=== PATIENT | male | born 1990 | race Caucasian/White ===

== ENCOUNTER 2017-08-31 13:00 | Outpatient (RCR) ==
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
--- NOTE | 2017-08-17 11:47 | RS.OPPTDN ---
Subjective Date of Note: 08/17/17 Visit #: 2 Date of Evaluation: 08/14/17 Payer Source: Medicaid Treatment Diagnosis: Left LE pain, knee stiffness, unable to ambulate Current Subjective/complaints:: Patient says he will return to his MD 08/22/17 for stitch removal. Reports he will be having surgery in 3 weeks to repair ACL , PCL, and MCL. He rates his pain 7/10 with pain medication this morning. He reports he is elevating his L leg at home, but not icing due to its discomfort. He indicates he is not able to lift his L LE on his own yet. Wolf admit to having difficulty sleeping, but does take xanax to help him at bedtime, although not routinely. Pain Assessment - Pain Description Pain Location: 7 surrounding the L knee joint - Treatment Modality: Electrical Stim Unattended Parameters/Method Applied: Hivolt 4 small pads crossed over the L knee @ 295 to 315 pk volts x 20 mins elevated prior to therex. Patient Position: Supine - Heat/Cryotherapy Treatment: Cryotherapy (double layered with estim ) Interventions - Exercise/Activities/Manual Therapy Exercises/Activities: Patient receives gentle PROM to the left knee into flexion and extension in supine. Heel cord stretching. Assisted SLR, hip abd with knee extended, AP, QS several sets only ~5-6 reps each. Patient demo increased L knee extension ~5 degrees. Patient and girlfriend instructed in HEP , elevation, ice, and safety with transfers. Explained modalities and estim's benefits. Explained Biodex for PROM next session and possibly finding and using platform walker. Re-applied gauze, JOSE wrap, and extension brace. Total minutes of Exercise: 32 Manual Therapy: NA HOME EXERCISE PROGRAM: AP's, quad sets, standing knee flexion, and standing hip abduction and flexion. - Charges Timed Code Treatment Minutes: 32 Total Treatment Time: 58 Procedures billed for this date of service:: cp, estim (un), ex2 Assessment: Patient presents via power chair transferring independently by pivoting using the R LE to/from plinth. Patient arrives with mod to severe pain along with pain medication. Pain is mostly at the L knee anteriorally with wound to the lateral and posterior aspect with slight draining. He is guarded throughout most exercise, but does duane better (per self and girlfriend) than at eval. Increased extension by ~5 degrees. Flexion appears to be slightly better as well when AA. I did look per request for loftstrand or platform piece to apply to one of our walkers, but unable to locate fastening pieces to AD. Patient Education: Education of diagnosis, Body/Joint mechanics, Home Exercise Program, Home Safety, Education of Plan of Care Patient demonstrates compliance with HEP?: Yes Short Term Goals Goal #1: Pt independent and compliant with HEP. Goal to be met by: 08/24/17 Progress towards Goal:: Progressing Goal #2: Left knee flexion to 75 degrees AROM. Goal to be met by: 08/28/17 Progress towards Goal:: Progressing Goal #3: Left quad strength improved to 4-/5. Goal to be met by: 08/28/17 Silver Designer Goals Goal #1: Pt left knee AROM to 110 degrees. Goal to be met by: 09/13/17 Goal #2: Pt to amb. with AAD with 50% WB on left LE. Goal to be met by: 09/13/17 Goal #3: Left quad strength 4/5. Goal to be met by: 09/13/17 Plan PLAN OF CARE EXPIRES ON:: 09/13/17 ORDER # VISITS AND/OR THROUGH DATE: 09/13/17 PLAN: Patient to continue with modalities and therex to the L knee
--- NOTE | 2017-08-21 16:11 | RS.OPPTDN ---
Subjective Date of Note: 08/21/17 Visit #: 3 Date of Evaluation: 08/14/17 Payer Source: Medicaid Treatment Diagnosis: Left LE pain, knee stiffness, unable to ambulate Current Subjective/complaints:: Patient says he is elevating and performing HEP , but not using cryotherapy due to discomfort level of ice. He rates pain 6/10 avg. Reports he has a new manual w/c, but resorting to "hopping" and placing > WBing that he anticipates at home. He is at home at times by himself and tries to get around as safe as he can. Pain Assessment - Pain Description Pain Location: L knee Pain Description: "tight" at the L knee, L foot swelling - Treatment Modality: Electrical Stim Unattended Parameters/Method Applied: hivolt 4 small pads surrounding the L knee @ 255-365 pk volts x 20 mins after therex Patient Position: Supine Interventions - Exercise/Activities/Manual Therapy Exercises/Activities: Wolf pivots on the R LE to transfer from w/c to bed independently. Patient receives gentle PROM to the left knee into flexion and extension in supine. Heel cord stretching. Assisted knee extension stretch statically with ankle over bolster. Assisted SAQ and static flexion stretch over bolster. Assisted SLR, hip abd with knee extended, AP, QS several sets only ~5-6 reps each. Patient able to demo increased L knee extension and flexion today and duane increased activity. Began Biodex for PROM only to L knee with progressing parameters and static stretches at end ranges. Re-applied gauze, JOSE wrap, and extension brace. Total minutes of Exercise: 35 Manual Therapy: NA HOME EXERCISE PROGRAM: AP's, quad sets, standing knee flexion, and standing hip abduction and flexion. - Objective Findings Observations,measurements,etc.: -13 degrees to 45 degrees avg AAROM - Charges Timed Code Treatment Minutes: 35 Total Treatment Time: 70 Procedures billed for this date of service:: estim (un), ex2 Assessment: Patient able to duane increased ROM to the L knee during Biodex than with mat exercises or clinician PROM. He remains quite guarded throughout most activities on mat table including actively ER the L hip to relieve discomfort and resisting to avoid increased knee flexion. However, he appears more relaxed with Biodex PROM and during ROM over bolster for flex/ext. Patient admits improved pain level and flexibility after estim. Patient Education: Body/Joint mechanics, Home Exercise Program, Home Safety, Education of Plan of Care Patient demonstrates compliance with HEP?: Yes Short Term Goals Goal #1: Pt independent and compliant with HEP. Goal to be met by: 08/24/17 Progress towards Goal:: Progressing Goal #2: Left knee flexion to 75 degrees AROM. Goal to be met by: 08/28/17 Progress towards Goal:: Progressing Comments:: 45 degrees today Goal #3: Left quad strength improved to 4-/5. Goal to be met by: 08/28/17 Manager It Training Goals Goal #1: Pt left knee AROM to 110 degrees. Goal to be met by: 09/13/17 Goal #2: Pt to amb. with AAD with 50% WB on left LE. Goal to be met by: 09/13/17 Goal #3: Left quad strength 4/5. Goal to be met by: 09/13/17 Plan PLAN OF CARE EXPIRES ON:: 09/13/17 ORDER # VISITS AND/OR THROUGH DATE: 09/13/17 PLAN: Patient to attend MD follow up tomorrow to remove sutures. Continue PT and may include OT eval if we obtain script to do so.
--- NOTE | 2017-08-28 13:29 | RS.OPPTDN ---
Subjective Date of Note: 08/25/17 Visit #: 4 Date of Evaluation: 08/14/17 Payer Source: Medicaid Treatment Diagnosis: Left LE pain, knee stiffness, unable to ambulate Current Subjective/complaints:: Wolf says that his MD says if his elbow and knee are not better in 6 weeks (at next follow up), he will have to have surgery on both. He says he is disappointed, but is trying to work on his knee to get it stronger. He says he is beginning to put weight onto the L LE through use of his crutches. He says he keeps his JOSE wrap on all day until bedtime. His girlfriend and grandpa helps him with ADLs at home and with HeP. *Precautions: New orders of agressive ROM - Treatment Modality: Electrical Stim Unattended Parameters/Method Applied: Faroese 2 large pads @ L quads x 15 mins 5 sec on/5 off with patient trying to actively contract during on phase. Hivolt 2 large pads medial/lateral L knee @ 235 pk volts Patient Position: Supine Interventions - Exercise/Activities/Manual Therapy Exercises/Activities: Wolf pivots on the R LE to transfer from w/c to bed independently. Patient receives more aggressive PROM to the left knee into flexion and extension in supine. Heel cord stretching. Assisted knee extension stretch statically with ankle over bolster. Assisted SAQ and static flexion stretch over bolster. Assisted SLR, hip abd with knee extended, AP in elevated position, QS several sets only ~5-6 reps each. Heel slides several reps with rests. Patient continues to demo increased L knee extension and flexion today and duane increased activity. DF with red tband x 10. Standing hip abd, knee flexion x 8-10. Re-applied gauze, JOSE wrap, and extension brace. Began crutch training throughout the dept with vc's for proper sequencing and safety techniques. Total minutes of Exercise: 55 Manual Therapy: NA HOME EXERCISE PROGRAM: AP's, quad sets, standing knee flexion, and standing hip abduction and flexion. - Charges Timed Code Treatment Minutes: 55 Total Treatment Time: 55 Procedures billed for this date of service:: estim (att), ex2, gt Assessment: Gers surgery has been pushed back to approximately 6 more weeks depending on how his knee progresses. He is to receive more aggressive ROM and build strength to the L LE. Patient is able to duane 58 degrees of flexion AAROM today in supine and -9/10 degrees of extension. Patient able to amb short distances with crutches with initial prompting for sequencing. He does this steadily, but slowly placing WBAT. Patient encouraged to place more weight onto the L LE per MD advice. Good contraction with Faroese stim to the L quads today. Decreased swelling noted which should allow improved quad contraction with exercises and increased ROM. Patient Education: Education of diagnosis, Body/Joint mechanics, Home Safety Patient demonstrates compliance with HEP?: Yes Short Term Goals Goal #1: Pt independent and compliant with HEP. Goal to be met by: 08/24/17 Progress towards Goal:: Progressing Goal #2: Left knee flexion to 75 degrees AROM. Goal to be met by: 08/28/17 Progress towards Goal:: Progressing Goal #3: Left quad strength improved to 4-/5. Goal to be met by: 08/28/17 Pin Machine Operator Goals Goal #1: Pt left knee AROM to 110 degrees. Goal to be met by: 09/13/17 Goal #2: Pt to amb. with AAD with 50% WB on left LE. Goal to be met by: 09/13/17 Goal #3: Left quad strength 4/5. Goal to be met by: 09/13/17 Plan PLAN OF CARE EXPIRES ON:: 09/13/17 ORDER # VISITS AND/OR THROUGH DATE: 09/13/17 PLAN: Continue BIW x 2 more weeks per approval to gain ROM to the L knee and strength
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
--- NOTE | 2017-08-28 16:13 | RS.OPPTDN ---
Subjective Date of Note: 08/28/17 Visit #: 5 Date of Evaluation: 08/14/17 Payer Source: Medicaid Treatment Diagnosis: Left LE pain, knee stiffness, unable to ambulate Current Subjective/complaints:: Patient says he has been performing HEP and feels that he is able to see improvement in his L knee motion. He says he has been trying to put ~50% WB on the L knee with crutches. Reports getting into/ out shower and car alright. *Precautions: New orders of agressive ROM - Treatment Modality: Electrical Stim Attended Parameters/Method Applied: Guyanese @ 16pk volts 15 mins 5 sec on/5 off to the L Quads. 2 large pads medial/lateral knee hivolt @ 300 pk volts Patient Position: Supine Interventions - Exercise/Activities/Manual Therapy Exercises/Activities: Wolf pivots on the R LE to transfer from w/c to bed independently. Patient receives more aggressive PROM to the left knee into flexion with the knee positioned at 90degrees and extension in supine. Heel cord stretching. Heel slides, Assisted SLR, hip abd multiple reps. Assisted knee extension stretch statically with ankle over bolster. Assisted SAQ with quad stimuli. AP in elevated position, QS several sets only ~5-6 reps each. Heel slides several reps with rests. Ham sets 3x5 reps. Patient continues to demo increased L knee extension and flexion today and duane increased activity. DF with red tband x 10. Sitting: contract/relax for knee flex/ext, assisted LAQ, hip flexion actively all 3x5. Standing hip abd, knee flexion x 8-10. Re- applied gauze, JOSE wrap, and extension brace. Continued with crutch training and WBing. Total minutes of Exercise: 38 Manual Therapy: NA HOME EXERCISE PROGRAM: AP's, quad sets, standing knee flexion, and standing hip abduction and flexion. - Charges Timed Code Treatment Minutes: 53 Total Treatment Time: 60 Procedures billed for this date of service:: estim (att), ex3 Assessment: Patient has demo increased L knee flexion today with exercise. Prior to therex, knee measured 58 degrees in supine with hip at 90 to 69 degrees after therex. In sitting, knee was able to flex to 76 degrees. Patient showing significant improvement with mobility and duane to increasing exercise. Patient Education: Home Exercise Program, Home Safety Patient demonstrates compliance with HEP?: Yes Short Term Goals Goal #1: Pt independent and compliant with HEP. Goal to be met by: 08/24/17 Progress towards Goal:: Progressing Goal #2: Left knee flexion to 75 degrees AROM. Goal to be met by: 08/28/17 Progress towards Goal:: Progressing Goal #3: Left quad strength improved to 4-/5. Goal to be met by: 08/28/17 Product Safety Officer Goals Goal #1: Pt left knee AROM to 110 degrees. Goal to be met by: 09/13/17 Goal #2: Pt to amb. with AAD with 50% WB on left LE. Goal to be met by: 09/13/17 Goal #3: Left quad strength 4/5. Goal to be met by: 09/13/17 Plan PLAN OF CARE EXPIRES ON:: 09/13/17 ORDER # VISITS AND/OR THROUGH DATE: 09/13/17 PLAN: Patient to continue. He began OT today. Continue to work on L knee mobility and strength.
--- NOTE | 2017-08-31 15:19 | RS.OPPTDN ---
Subjective Date of Note: 08/31/17 Visit #: 6 Date of Evaluation: 08/14/17 Payer Source: Medicaid Treatment Diagnosis: Left LE pain, knee stiffness, unable to ambulate Current Subjective/complaints:: Patient says he has been using a RW at home to amb with because he feels safer than with crutches. He says it is really hard for him to figure out what 50% WBing is. He says it is difficult to get his knee straight to place his foot onto the floor. States he is having continued swelling to the knee and asks why his knee is mishaped. *Precautions: New orders of agressive ROM, 50% WBing on the L LE. - Treatment Modality: Electrical Stim Attended Parameters/Method Applied: Mozambican @ 11 pk volts to the L quads 2 large pads. Hivolt 2 large pads medial/lateral knee @ 265 pk volts x 15 mins prior to therex Patient Position: Supine - Heat/Cryotherapy Treatment: Cryotherapy (to L knee following therex x 12 mins supine) Interventions - Exercise/Activities/Manual Therapy Exercises/Activities: Wolf pivots on the R LE to transfer from w/c to bed independently. Receives modalities. Patient receives more aggressive PROM to the left knee into flexion with the knee positioned at 90degrees and extension in supine. Heel cord stretching. Assisted heel slides, Assisted SLR, hip abd multiple reps with assistance. Assisted knee extension stretch statically with ankle over bolster. Assisted SAQ with quad stimuli. AP in elevated position, QS several sets only ~5-6 reps each. Heel slides several reps with rests. Ham sets 3x5 reps. Patient continues to demo increased L knee extension and flexion today and duane increased activity. DF with red tband x 10. Sitting: contract/relax for knee flex/ext, assisted LAQ, hip flexion actively all 3x5. Passive stretching for flexion and extension at side of bed. Began stationary bike for pedal rocks and self stretching x 8 mins slow and with often stopping during conversation. WBing and weight shifting L to R multiple times standing at SW. Amb ~ 10 steps to bike with prompts to place 25-50% WBing. Instructed/ prompted for 50% WBing around the dept ~20' with brace on and with crutches. Patient stands for hip abd, ext, x 8. Re-applied JOSE wrap, and extension brace. Continued with crutch training and WBing. Total minutes of Exercise: 60 Manual Therapy: NA HOME EXERCISE PROGRAM: AP's, quad sets, standing knee flexion, and standing hip abduction and flexion. - Charges Timed Code Treatment Minutes: 60 Total Treatment Time: 60 Procedures billed for this date of service:: ex3, estim (att) Assessment: Patient demo very little quad contraction actively, but achievable with azerbaijani stim. He continues to nervous about placing weight onto the L LE and is unable to sense the amount of weight he is placing on it in reference to 50% goal. He is using 2 crutches and also alternating with amb using RW. He is steady with RW at home and his girlfriend helps him consistently with HEP while also trying to control swelling. He does demo 0.5-.75 cm improvement with swelling at the superior patella and malleoli. Swelling at the inferior knee remains the same. Knee flexion has improved to 61 degrees and ext to -11, then to -6 with aggressive stretching, but also is a bony endfeel. I feel patient was able to allow for more flexion during stationary bike due to patient being more in control. Patient Education: Education of diagnosis, Home Exercise Program, Home Safety, Education of Plan of Care Patient demonstrates compliance with HEP?: Yes Short Term Goals Goal #1: Pt independent and compliant with HEP. Goal to be met by: 08/24/17 Progress towards Goal:: Progressing Goal #2: Left knee flexion to 75 degrees AROM. Goal to be met by: 08/28/17 Progress towards Goal:: Progressing Comments:: 61 degrees today in sitting Goal #3: Left quad strength improved to 4-/5. Goal to be met by: 08/28/17 Pediatric Dermatologist Goals Goal #1: Pt left knee AROM to 110 degrees. Goal to be met by: 09/13/17 Goal #2: Pt to amb. with AAD with 50% WB on left LE. Goal to be met by: 09/13/17 Goal #3: Left quad strength 4/5. Goal to be met by: 09/13/17 Plan PLAN OF CARE EXPIRES ON:: 09/13/17 ORDER # VISITS AND/OR THROUGH DATE: 09/13/17 PLAN: Patient to continue BIW along with OT to build quad strength, improve ROM.
== END 2017-09-02 23:59 ==
PROVIDERS: ATTEND Orthopaedic Surgery Sports Medicine
DX: S83.105D Unspecified dislocation of left knee, subsequent encounter (principal); S83.005D Unspecified dislocation of left patella, subsequent encounter; S83.512D Sprain of anterior cruciate ligament of left knee, subsequent encounter; S83.412D Sprain of medial collateral ligament of left knee, subsequent encounter; S83.422D Sprain of lateral collateral ligament of left knee, subsequent encounter; M25.562 Pain in left knee; M25.462 Effusion, left knee; M25.662 Stiffness of left knee, not elsewhere classified; R26.9 Unspecified abnormalities of gait and mobility

== ENCOUNTER 2017-09-26 10:00 | Outpatient (RCR) ==
--- NOTE | 2017-09-04 15:51 | RS.OTDNOTE ---
Subjective Date of Note: 09/04/17 Visit #: 2 Date of Evaluation: 08/28/17 Payer Source: Medicaid Treatment Diagnosis: Right elbow fracture *Precautions: New orders of agressive ROM, 50% WBing on the L LE. Current Complaints/Gains: Pain in the olecranon process of RUE and complains of limited movement. Pain Assessment - Pain Description Pain Location: Right Elbow Pain Description: aches Current Pain Intensity: 0 Worst Pain Intensity: 8 Other comments regarding pain:: Pt reports he does not have pain at rest with the RUE elbow. He has pain with movement of the RUE elbow. Modalities - Treatment Modality: Ultrasound Parameters/Method Applied: .4 w/cm 2 to Right elbow for 8 minutes Treatment Area: RUE tricep and elbow crease/ bicep Patient Position: Sitting - Hot Pack/Cryotherapy Treatment: Hot Pack, Cryotherapy Comments:: Hot pack at the beginning of therapy and then cold pack at end of treatment. Interventions - Exercise/Activities Exercise/Activities/Manual Therapy: Progressing stretching of the elbow into flexion holding 1 min and 30 sec x 5 reps with 8 lbs. stretching of the RUE elbow into extension. Pt then pulling on the green theraband to increase his RUE elbow flexion. Pt controls the flexion and the extension with therapist holding the green band. Pt increased his AROM to 99 degrees of RUE elbow flexion and -37 deg. of right elbow extension. Shucking motion of two bones of the forearm, joint mobs, to RUE radius and ulna. Pt increased supination to approximately 65 degrees. Pronation is increased to 15 degrees. HOME EXERCISE PROGRAM: Progressing stretching of the RUE Elbow. - Objective Findings Objective Findings:: Pt has limited pronation of RUE. - Charges Timed Code Treatment Minutes: 75 Total Treatment Time: 75 Procedures billed for this date of service:: CP, HP, US, MT, EX x 2 Assessment Assessment: Pt is able to touch his nose with his RUE thumb. Pt is able to flex his elbow to 99 deg. and extend his RUE Elbow to -37 deg. Pt increased his supination to 65-70 deg. Patient Education: Education of diagnosis, Home Exercise Program, Home Safety, Education of Plan of Care Problems/Comments: OT educating patient to complete exercises of sup/pronation motion, elbow flexion is improving and elbow extension is improving. Pt has increased pain with the motion. Patient demonstrates compliance with HEP?: Yes Short Term Goals Goal #1: Pt to increase his RUE elbow ext. to -15 deg. Goal to be met by: 09/11/17 Progress towards goal: Progressing Goal #2: Pt to increase his RUE cork mixer to 40# Goal to be met by: 09/11/17 Progress towards goal: Progressing Goal #3: Pt to increase RUE wrist ext. to 55 deg. to increase wt. brg on RUE arm. Goal to be met by: 09/11/17 Progress towards goal: Progressing Goal #4: Pt to increase RUE elbow flexion to 130 deg to increase combing his hair. Goal to be met by: 09/11/17 Progress towards goal: Progressing Senior Living Goals Goal #1: Pt to increase his RUE elbow ext. to -5 deg. Goal to be met by: 10/16/17 Progress towards goal: Progressing Goal #2: Pt to increase his RUE cork mixer to 40# Goal to be met by: 10/16/17 Progress towards goal: Progressing Goal #3: Pt to increase RUE wrist ext. to 65 deg. to increase wt. brg on RUE arm. Goal to be met by: 10/16/17 Progress towards goal: Progressing Goal #4: Pt to increase RUE elbow flexion to 145 deg to increase combing his hair. Goal to be met by: 09/15/17 Progress towards goal: Progressing Plan PLAN OF CARE EXPIRES ON:: 10/16/17 ORDER # VISITS AND/OR THROUGH DATE: 12 PLAN: To increase RUE elbow, and wrist to full AROM and then strengthen to increase functional use of RUE to return patient to PLOF. Comments: Pt is very motivated and making progress nicely.
--- NOTE | 2017-09-04 16:25 | RS.OPPTDN ---
Subjective Date of Note: 09/04/17 Visit #: 7 Date of Evaluation: 08/14/17 Payer Source: Medicaid Treatment Diagnosis: Left LE pain, knee stiffness, unable to ambulate Current Subjective/complaints:: Patient says he has been walking with crutches and has been steady and amb quicker. He says he is working to place more weight onto the L LE. Says he has increased his neurontin and seems to be having less pain today and improved ease with amb. C/o increased swelling into the L foot, but he has been spending more time on his feet and amb. He says that he has been performing HEP for the R arm also to assist him with crutches. *Precautions: New orders of agressive ROM, 50% WBing on the L LE. - Treatment Modality: Electrical Stim Unattended Parameters/Method Applied: hivolt cross current over the L knee joint and quads @ 120 pk volts x 20 mins prior to therex. Patient Position: Supine - Heat/Cryotherapy Treatment: Cryotherapy Interventions - Exercise/Activities/Manual Therapy Exercises/Activities: Wolf transfers to mat table using crutches. Receives modalities. Patient receives more aggressive PROM to the left knee into flexion with hip flexed at 90 degrees and with heel slide overpressures. Multiple reps of QS, AP. Heel cord stretching. Assisted heel slides, Assisted SLR, hip abd multiple reps. Assisted knee extension stretch statically with ankle over bolster. Assisted SAQ with quad stimuli. AP in elevated position. Prone: knee extension stretching, passive knee flexion, active knee flexion, contract/relax. R sidelying hip abd actively x 8. Ball squeezes in sitting x 10. Balance Fisher Line for weight shifting assessment. Patient able to apply 30-45% onto the L LE. Weight shifting and WBing onto the L foot during gait with crutches without requiring vc's, but encouragement to place foot onto the floor with gait ~50' in the dept. Re-applied JOSE wrap, and extension brace. Total minutes of Exercise: 43 Manual Therapy: NA HOME EXERCISE PROGRAM: AP's, quad sets, standing knee flexion, and standing hip abduction and flexion. - Charges Timed Code Treatment Minutes: 43 Total Treatment Time: 63 Procedures billed for this date of service:: cp, estim (un), ex3 Assessment: Patient progressing well with presenting amb to dept with crutches with increased WBing on the L LE. Improved confidence with WBing and increased knee extension especially in prone. Patient demo increased quad contraction. Patient Education: Body/Joint mechanics, Home Exercise Program Patient demonstrates compliance with HEP?: Yes Short Term Goals Goal #1: Pt independent and compliant with HEP. Goal to be met by: 08/24/17 Progress towards Goal:: Progressing Goal #2: Left knee flexion to 75 degrees AROM. Goal to be met by: 08/28/17 Progress towards Goal:: Progressing Goal #3: Left quad strength improved to 4-/5. Goal to be met by: 08/28/17 Prison Goals Goal #1: Pt left knee AROM to 110 degrees. Goal to be met by: 09/13/17 Goal #2: Pt to amb. with AAD with 50% WB on left LE. Goal to be met by: 09/13/17 Goal #3: Left quad strength 4/5. Goal to be met by: 09/13/17 Plan PLAN OF CARE EXPIRES ON:: 09/13/17 ORDER # VISITS AND/OR THROUGH DATE: 09/13/17 PLAN: BIW for 1 more session. Request continuation and approval for further visits with DPA.
--- NOTE | 2017-09-08 16:27 | RS.OTDNOTE ---
Subjective Date of Note: 09/08/17 Visit #: 3 Date of Evaluation: 08/28/17 Payer Source: Medicaid Treatment Diagnosis: Right elbow fracture *Precautions: New orders of agressive ROM, 50% WBing on the L LE. Current Complaints/Gains: Sharp pain in the RUE elbow. Pt was able to stretch to 38 degrees of elbow extension. Pt has increased pain and soreness of the right elbow. Pt reports the yvan is hurting today. Pain Assessment - Pain Description Pain Description: Tightness, Radiating, Sharp, Throbbing, Aching Pain Location: Right Elbow Pain Description: aches Current Pain Intensity: 2 Worst Pain Intensity: 9 Other comments regarding pain:: Pt's pain increases to 9 when OT pushes and stretches the elbow into extension. Modalities - Treatment Modality: Ultrasound Parameters/Method Applied: .6 w/cm2 for RUE elbow to increase extension of elbow and decrease the scar tissue, pulsed, no heat. Treatment Area: Right elbow. Patient Position: Sitting - Hot Pack/Cryotherapy Treatment: Hot Pack, Cryotherapy Interventions - Exercise/Activities Exercise/Activities/Manual Therapy: Progressing stretching of the elbow into flexion holding 2 minutes x 6 reps with 8 lbs. stretching of the RUE elbow into extension. Pt then pulling on the green theraband to increase his RUE elbow flexion. Pt controls the flexion and the extension with therapist holding the green band. Pt increased his AROM to 99 degrees of RUE elbow flexion and - 38 deg. of right elbow extension. Shucking motion of two bones of the forearm, joint mobs, to RUE radius and ulna. Pt increased supination to approximately 70 degrees. Pronation is 15 degrees. HOME EXERCISE PROGRAM: Progressing stretching of the RUE Elbow. - Objective Findings Objective Findings:: Pt has limited pronation of RUE. Pain in the RUE elbow. - Charges Timed Code Treatment Minutes: 60 Total Treatment Time: 60 Procedures billed for this date of service:: HP, US, EX x 2, CP Assessment Assessment: Pt has increased pain in the RUE elbow. Pt reports the elbow is really hurting today. He reports the bar in his arm is hurting. Pt has a hole in the tissue near the elbow. When OT asked him what was going on, he reported he did not know why that was happening. Patient Education: Home Exercise Program, Education of Plan of Care Problems/Comments: Pt has increased pain. Patient demonstrates compliance with HEP?: Yes Short Term Goals Goal #1: Pt to increase his RUE elbow ext. to -15 deg. Goal to be met by: 09/11/17 Progress towards goal: Progressing Goal #2: Pt to increase his RUE decontamination technician to 40# Goal to be met by: 09/11/17 Progress towards goal: Progressing Goal #3: Pt to increase RUE wrist ext. to 55 deg. to increase wt. brg on RUE arm. Goal to be met by: 09/11/17 Progress towards goal: Progressing Goal #4: Pt to increase RUE elbow flexion to 130 deg to increase combing his hair. Goal to be met by: 09/11/17 Progress towards goal: Progressing Supervisor Edging Goals Goal #1: Pt to increase his RUE elbow ext. to -5 deg. Goal to be met by: 10/16/17 Progress towards goal: Progressing Goal #2: Pt to increase his RUE decontamination technician to 40# Goal to be met by: 10/16/17 Progress towards goal: Progressing Goal #3: Pt to increase RUE wrist ext. to 65 deg. to increase wt. brg on RUE arm. Goal to be met by: 10/16/17 Progress towards goal: Progressing Goal #4: Pt to increase RUE elbow flexion to 145 deg to increase combing his hair. Goal to be met by: 09/15/17 Progress towards goal: Progressing Plan PLAN OF CARE EXPIRES ON:: 10/16/17 ORDER # VISITS AND/OR THROUGH DATE: 12 PLAN: Continue to stretch patient's RUE elbow into extension.
--- NOTE | 2017-09-08 16:27 | RS.OPPTDN ---
Subjective Date of Note: 09/08/17 Visit #: 8 Date of Evaluation: 08/14/17 Payer Source: Medicaid Treatment Diagnosis: Left LE pain, knee stiffness, unable to ambulate Current Subjective/complaints:: Patient says he has been working on HEP often. Reports he was able to drive to PT today without difficulty. ([address] . He says he continues to hernández swelling, but mainly into his L foot. Says he has not taken anything for pain today. Reports soley using crutches now, but placing only TTWB due to insecurity. *Precautions: New orders of agressive ROM, 50% WBing on the L LE. - Treatment Modality: Electrical Stim Unattended Parameters/Method Applied: surrounding the L knee Hivolt 4 large pads crossed @ 125 pk volts x 20 mins with cryotherapy Patient Position: Supine - Heat/Cryotherapy Treatment: Cryotherapy (with estim x 20 mins prior to therex) Interventions - Exercise/Activities/Manual Therapy Exercises/Activities: Wolf transfers to mat table using crutches. Receives modalities. Patient receives continued aggressive PROM to the left knee into flexion with hip flexed at 90 degrees and with heel slide overpressures. Multiple reps of QS (with improved contraction), AP. Heel cord stretching. Assisted heel slides, Assisted SLR, hip abd multiple reps. Assisted knee extension stretch statically with ankle over bolster. Wolf is now able to perform short range SAQ independently. Isometric hip add with ball 2x8. DF red tband with ankle over bolster to stretch into extension 2x10. PF with red tband with knee over bolster 2x10. Isometric ham curl 2x5. AP in elevated position. Prone: knee extension stretching, passive knee flexion, active knee flexion, contract/relax. LAQ limited range, hip flexion at EOB x 10. Measurements taken. Total minutes of Exercise: 45 Manual Therapy: NA HOME EXERCISE PROGRAM: AP's, quad sets, standing knee flexion, and standing hip abduction and flexion. - Objective Findings Observations,measurements,etc.: -6 degrees to 61 degrees flexion (with hip at 90 ). With active QS, patient is able to achieve -4 degrees - Charges Timed Code Treatment Minutes: 45 Total Treatment Time: 65 Procedures billed for this date of service:: cp, estim (un), ex3 Assessment: Improved duane to increasing exercise demo improved ROM and swelling. He is now driving and amb with crutches more consistently. He is not placing as much WBing through the L LE though because of insecurity. He requires prompting in order to do so. Patient Education: Body/Joint mechanics, Home Exercise Program, Education of Plan of Care Patient demonstrates compliance with HEP?: Yes Short Term Goals Goal #1: Pt independent and compliant with HEP. Goal to be met by: 08/24/17 Progress towards Goal:: Progressing Goal #2: Left knee flexion to 75 degrees AROM. Goal to be met by: 08/28/17 Progress towards Goal:: Progressing Comments:: 61 degrees today with hip at 90 Goal #3: Left quad strength improved to 4-/5. 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 Goal to be met by: 09/13/17 Goal #2: Pt to amb. with AAD with 50% WB on left LE. Goal to be met by: 09/13/17 Goal #3: Left quad strength 4/5. Goal to be met by: 09/13/17 Plan PLAN OF CARE EXPIRES ON:: 09/13/17 ORDER # VISITS AND/OR THROUGH DATE: 09/13/17 PLAN: Patient to attend 1 more visit per order. Request further orders from MD and seek approval through Medicaid.
--- NOTE | 2017-09-11 13:28 | RS.OPPTDN ---
Subjective Date of Note: 09/11/17 Visit #: 9 Date of Evaluation: 08/14/17 Payer Source: Medicaid Treatment Diagnosis: Left LE pain, knee stiffness, unable to ambulate Current Subjective/complaints:: Patient says he has been trying to work on flexing his knee, but says it just feels like he is hitting a block. Reports he has been able to straighten his knee better over the weekend and states his swelling is down significantly especially to his foot. Reports increased amb, but still is hesitant to place much weight onto the L LE. Wolf reports using ice to the knee prior to his drive into therapy this morning. *Precautions: New orders of agressive ROM, 50% WBing on the L LE. - Treatment Modality: Electrical Stim Unattended Parameters/Method Applied: Hivolt 4 large pads crossed over the L knee @ 320 pk volts x 15 mins prior to therex Patient Position: Supine - Heat/Cryotherapy Treatment: Cryotherapy (around the L knee with estim) Interventions - Exercise/Activities/Manual Therapy Exercises/Activities: Wolf transfers to mat table pivoting after OT. Receives modalities. Patient receives continued aggressive PROM to the left knee into flexion with hip flexed at 90 degrees and with heel slide overpressures. Multiple reps of QS (with improved contraction), AP. Heel cord stretching. Assisted heel slides, Assisted SLR, hip abd multiple reps. Assisted knee extension stretch statically with ankle over bolster. He continues to be able to perform short range SAQ, but more range than last session independently. Isometric hip add with ball 2x8. DF red tband with ankle over bolster to stretch into extension 2x10. PF with red tband with knee over bolster 2x10. Isometric ham curl 2x5. Ham curl with red tband 2x8. AP in elevated position. SLR (AARoM), hip abd with knee extended 2x8. EOB: stretching, passive knee flexion, active knee flexion, contract/relax. LAQ limited range, hip flexion at EOB x 10. Total minutes of Exercise: 40 Manual Therapy: NA HOME EXERCISE PROGRAM: AP's, quad sets, standing knee flexion, and standing hip abduction and flexion. - Objective Findings Observations,measurements,etc.: Patient demo -4 degrees on average for extension. 61 degrees flexion with hip at 90 and AAROM - Charges Timed Code Treatment Minutes: 40 Total Treatment Time: 55 Procedures billed for this date of service:: cp, estim (un), ex3 Assessment: Patient has completed original order. He will continue to perform HEP consistently. He is driving without difficulty, but needs to be more consistent with increasing WB onto the L LE during ambulation. Quads/HS now 4-/ 5. Patient Education: Home Exercise Program, Education of Plan of Care Patient demonstrates compliance with HEP?: Yes Short Term Goals Goal #1: Pt independent and compliant with HEP. Goal to be met by: 08/24/17 Progress towards Goal:: Met Goal #2: Left knee flexion to 75 degrees AROM. Goal to be met by: 08/28/17 Progress towards Goal:: Progressing Comments:: 61 at LDOS Goal #3: Left quad strength improved to 4-/5. 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 Goal to be met by: 09/13/17 Goal #2: Pt to amb. with AAD with 50% WB on left LE. Goal to be met by: 09/13/17 Goal #3: Left quad strength 4/5. Goal to be met by: 09/13/17 Plan PLAN OF CARE EXPIRES ON:: 09/13/17 ORDER # VISITS AND/OR THROUGH DATE: 09/13/17 PLAN: Patient order complete. Seeking continuation orders until he returns to MD for surgical procedure and seek approval from [facility].
--- NOTE | 2017-09-11 13:39 | RS.OTDNOTE ---
Subjective Date of Note: 09/11/17 Visit #: 4 Date of Evaluation: 08/28/17 Payer Source: Medicaid Treatment Diagnosis: Right elbow fracture *Precautions: New orders of agressive ROM, 50% WBing on the L LE. Current Complaints/Gains: Pt states he feels his elbow isn't going to "break" and wishes he could just go ahead with surgery. Pain Assessment - Pain Description Pain Description: Tightness, Radiating, Sharp, Throbbing, Aching Pain Location: Right Elbow Pain Description: aches Worst Pain Intensity: 6 Modalities - Treatment Modality: Ultrasound Parameters/Method Applied: .05w/cm2 x 10 mins Treatment Area: elbow - Hot Pack/Cryotherapy Treatment: Hot Pack, Cryotherapy Interventions - Exercise/Activities Exercise/Activities/Manual Therapy: Progressive stretching of the elbow into flexion holding 2 minutes x 6 reps with 8 lbs with UE hanging down beside chair. Stretching/PROM of the RUE elbow into extension/flexion. Pt performing green RUE elbow flexion, /. Shucking motion of two bones of the forearm, joint mobs, to RUE radius and ulna. Pt increased supination to approximately 80 degrees. Pronation is 20 degrees. HOME EXERCISE PROGRAM: Progressive stretching of the RUE Elbow. - Charges Timed Code Treatment Minutes: 48 Total Treatment Time: 61 Procedures billed for this date of service:: CP US OK EX Assessment Patient Education: Education of diagnosis, Body/Joint mechanics, Home Exercise Program, Home Safety, Activity Modification, Education of Plan of Care Patient demonstrates compliance with HEP?: Yes Short Term Goals Goal #1: Pt to increase his RUE elbow ext. to -15 deg. 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 to 55 deg. to increase wt. brg on RUE arm. Goal to be met by: 09/11/17 Progress towards goal: Progressing Goal #4: Pt to increase RUE elbow flexion to 130 deg to increase combing his hair. 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 to -5 deg. 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 to 65 deg. to increase wt. brg on RUE arm. Goal to be met by: 10/16/17 Progress towards goal: Progressing Goal #4: Pt to increase RUE elbow flexion to 145 deg to increase combing his hair. Goal to be met by: 09/15/17 Progress towards goal: Progressing Plan PLAN OF CARE EXPIRES ON:: 10/16/17 ORDER # VISITS AND/OR THROUGH DATE: 12 PLAN: Cont current POC
--- NOTE | 2017-09-12 11:11 | RS.PTSUM ---
Progress Note/Summary Date of Note: 09/11/17 Date of Evaluation: 08/14/17 Number of Visits: 9 (including evaluation) Current Complaints/Gains: Wolf continues to work on his HEP. He feels that he is "hitting a block" with trying to gain more knee flexion. Reports increased ambulation, but he continues to be hesitant to put too much weight on the left LE. He is using ice to the knee as needed. Objective Measurements/Presentation: TELLOOM left knee extension -4 degrees to 61 degrees flexion (with the hip flexed at 90 degrees). He is performing a variety of exercises and receiving aggressive PROM to gain increased range. He gets good results with use of HVGS to the left knee prior to exercises in the department. He still has impaired quad control of the left LE. He is ambulating with two crutches and is approximately 20% weight bearing on the left LE. G Codes: NA Source of G Code Score: NA - Short Term Goals Goal #1: Pt independent and compliant with HEP. Goal to be met by: 08/24/17 Progress towards Goal:: Met Goal #2: Left knee flexion to 75 degrees AROM. Goal to be met by: 09/18/17 Progress towards Goal:: Progressing Goal #3: Left quad strength improved to 4-/5. Goal to be met by: 09/18/17 Progress towards Goal:: Progressing - Prison Goals Goal #1: Pt left knee AROM to 110 degrees. Goal to be met by: 10/11/17 Goal #2: Pt to amb. with AAD with 50% WB on left LE. Goal to be met by: 10/11/17 Goal #3: Left quad strength 4/5. Goal to be met by: 10/11/17 - Assessment Assessment of Improvement/Progress: Wolf has made progress with left knee extension and flexion. However, he continues to have marked limitation of flexion. He is now ambulating with crutches and attempting more weight bearing through the left LE. He is very hesitant of weight bearing due to the lack of stability he feels in the left knee joint. His surgery for multiple ligament reconstruction has been postponed and he needs continued therapy to gain further knee flexion and muscle strength prior to that surgery, which is planned to happen in 3-4 weeks. Summary: Patient has made progress towards goals., Patient demonstrates potential to gain increased function with therapy, Maximum potential has yet to be attained. - Plan Plan: Continue Plan of Care Comments: Order received to continue therapy 2 x week for 6 weeks Frequency: 2 X week Duration: 3 weeks PLAN OF CARE EXPIRES ON:: 10/11/17 ORDER # VISITS AND/OR THROUGH DATE: 10/11/17
--- NOTE | 2017-09-14 13:06 | RS.OTCXNS ---
OT Case Note Date of Scheduled Appointment: 09/14/17 Type: Cancel
--- NOTE | 2017-09-15 16:15 | RS.OTDNOTE ---
Subjective Date of Note: 09/15/17 Visit #: 5 Date of Evaluation: 08/28/17 Payer Source: Medicaid Treatment Diagnosis: Right elbow fracture *Precautions: New orders of agressive ROM, 50% WBing on the L LE. Current Complaints/Gains: Sharp pain in the left elbow with extension and flexion. Pt has alot of pain with flexion. Range of motion in Left elbow is -38 to 90 degrees. Pain Assessment - Pain Description Pain Description: Tightness, Radiating, Sharp, Throbbing, Aching Pain Location: Right Elbow Pain Description: aches Current Pain Intensity: 0 Worst Pain Intensity: 10 Other comments regarding pain:: Pt has increased pain with flexion and extension of elbow. At rest it is a 0. Modalities - Hot Pack/Cryotherapy Treatment: Hot Pack (To increase flexibility for stretching.) Interventions - Exercise/Activities Exercise/Activities/Manual Therapy: Progressive stretching of the elbow into flexion holding 2 minutes x 6 reps with 8 lbs with UE hanging down beside chair. Stretching/PROM of the RUE elbow into extension/flexion. Pt performing green RUE elbow flexion, 12/04. Shucking motion of two bones of the forearm, joint mobs, to RUE radius and ulna. Pt increased supination to approximately 80 degrees. Pronation is 20 degrees. HOME EXERCISE PROGRAM: Progressive stretching of the RUE Elbow. - Objective Findings Objective Findings:: Pt has limited pronation of RUE. Pain in the RUE elbow. Measurement for elbow AROM is -38 to 90 degrees. - Charges Timed Code Treatment Minutes: 60 Total Treatment Time: 60 Procedures billed for this date of service:: HP, MT x 2, EX Assessment Assessment: Pt is very difficult to stretch into pronation. Pt reports the Ulna bone was replaced with a bar and a metal plate. Pt has improved on Elbow extension and flexion. Pt has increased pain where he yells with elbow flexion. Problems/Comments: The limited Pronation of the LUE limb. Patient demonstrates compliance with HEP?: Yes Short Term Goals Goal #1: Pt to increase his RUE elbow ext. to -15 deg. 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 to 55 deg. to increase wt. brg on RUE arm. Goal to be met by: 09/11/17 Progress towards goal: Progressing Goal #4: Pt to increase RUE elbow flexion to 130 deg to increase combing his hair. Goal to be met by: 09/11/17 Progress towards goal: Progressing Science Job Titles Goals Goal #1: Pt to increase his RUE elbow ext. to -5 deg. Goal to be met by: 10/16/17 Progress towards goal: Progressing Goal #2: Pt to increase his RUE roll scale worker to 40# Goal to be met by: 10/16/17 Progress towards goal: Progressing Goal #3: Pt to increase RUE wrist ext. to 65 deg. to increase wt. brg on RUE arm. Goal to be met by: 10/16/17 Progress towards goal: Progressing Goal #4: Pt to increase RUE elbow flexion to 145 deg to increase combing his hair. Goal to be met by: 09/15/17 Progress towards goal: Progressing Plan PLAN OF CARE EXPIRES ON:: 10/16/17 ORDER # VISITS AND/OR THROUGH DATE: 12 PLAN: Continue to stretch the patient in elbow flexion and extension. Call for report on patient's RUE surgery.
--- NOTE | 2017-09-18 15:17 | RS.OPPTDN ---
Subjective Date of Note: 09/18/17 Visit #: 10 Date of Evaluation: 08/14/17 Payer Source: Medicaid Treatment Diagnosis: Left LE pain, knee stiffness, unable to ambulate Current Subjective/complaints:: Patient reports trying to increase the weight bearing on the L LE ,but is cautious. *Precautions: New orders of agressive ROM, 50% WBing on the L LE. Pain Assessment - Pain Description Pain Location: L knee Pain Description: Dull, Aching Current Pain Intensity: 0 at rest Worst Pain Intensity: 5-6 while up for longer time periods - Treatment Modality: Electrical Stim Unattended Parameters/Method Applied: 20 mins. to L knee channel 1 above knee @ 150 pv, channel 2 below @ 255 pv. Patient Position: Supine - Heat/Cryotherapy Treatment: Cryotherapy (concurrent with e-stim) Interventions - Exercise/Activities/Manual Therapy Exercises/Activities: N/A today due to time restraint.Patient has good knowledge of safety issues with HEP.Patient did 5 mins. gait training at end of session with improved heel strike. Total minutes of Exercise: 0 Manual Therapy: NA Total minutes of Manual Therapy: 0 HOME EXERCISE PROGRAM: AP's, quad sets, standing knee flexion, and standing hip abduction and flexion. - Charges Timed Code Treatment Minutes: 20 Total Treatment Time: 25 Procedures billed for this date of service:: cp,e-stim Assessment: Patient tolerates modalities well today.He is gradually tolerating increased weight bearing on the L lE.He is cautious ,has good safety awareness, compliant to wearing the Leg brace.No exercises today due to therapy staff time restraint,but understands to do HEP in pain free ROM. Patient Education: Education of diagnosis, Body/Joint mechanics, Home Exercise Program, Home Safety, Activity Modification, Education of Plan of Care Patient demonstrates compliance with HEP?: Yes Short Term Goals Goal #1: Pt independent and compliant with HEP. Goal to be met by: 08/24/17 Progress towards Goal:: Met Goal #2: Left knee flexion to 75 degrees AROM. Goal to be met by: 09/18/17 Progress towards Goal:: Progressing Goal #3: Left quad strength improved to 4-/5. 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 Goal to be met by: 10/11/17 Goal #2: Pt to amb. with AAD with 50% WB on left LE. Goal to be met by: 10/11/17 Progress towards goal: Progressing Goal #3: Left quad strength 4/5. Goal to be met by: 10/11/17 Plan PLAN OF CARE EXPIRES ON:: 10/11/17 ORDER # VISITS AND/OR THROUGH DATE: 10/11/17 PLAN: Continue PT to strengthen the L LE ,resulting in more stability of the L knee joint until reconstructive surgery.
--- NOTE | 2017-09-19 08:51 | RS.OTDNOTE ---
Subjective Date of Note: 09/18/17 Visit #: 6 Date of Evaluation: 08/28/17 Payer Source: Medicaid Treatment Diagnosis: Right elbow fracture *Precautions: New orders of agressive ROM, 50% WBing on the L LE. Current Complaints/Gains: Pt states no change in UE. States he returns to MD on the . States LE is starting to feel better and he wants to try ambulating more. Pain Assessment - Pain Description Pain Description: Tightness, Radiating, Sharp, Throbbing, Aching Pain Location: Right Elbow Pain Description: aches Current Pain Intensity: 3 Worst Pain Intensity: 8 Modalities - Treatment Modality: Ultrasound Parameters/Method Applied: .05w/cm2 x 10 mins Treatment Area: elbow Patient Position: Sitting - Hot Pack/Cryotherapy Treatment: Hot Pack, Cryotherapy Comments:: x 10+mins each Interventions - Exercise/Activities Exercise/Activities/Manual Therapy: Progressive stretching of the elbow into flexion holding 2 minutes x 6 reps with 10# with UE hanging down beside chair. Stretching/PROM of the RUE elbow into extension/flexion. Pt performing green RUE elbow flexion, 10/1. Shucking motion of two bones of the forearm, joint mobs, to RUE radius and ulna. Pt increased supination to approximately 80 degrees. Pronation is 20 degrees. HOME EXERCISE PROGRAM: Progressive stretching of the RUE Elbow. - Objective Findings Objective Findings:: Pt has limited pronation of RUE. Pain in the RUE elbow. Measurement for elbow AROM is -38 to 90 degrees. - Charges Timed Code Treatment Minutes: 48 Total Treatment Time: 71 Procedures billed for this date of service:: [facility] MT2 EX Assessment Patient Education: Education of diagnosis, Body/Joint mechanics, Home Exercise Program, Home Safety, Activity Modification, Education of Plan of Care Patient demonstrates compliance with HEP?: Yes Short Term Goals Goal #1: Pt to increase his RUE elbow ext. to -15 deg. 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 to 55 deg. to increase wt. brg on RUE arm. Goal to be met by: 09/11/17 Progress towards goal: Progressing Goal #4: Pt to increase RUE elbow flexion to 130 deg to increase combing his hair. 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 to -5 deg. Goal to be met by: 10/16/17 Progress towards goal: Progressing Goal #2: Pt to increase his RUE kitchen cleaner to 40# Goal to be met by: 10/16/17 Progress towards goal: Progressing Goal #3: Pt to increase RUE wrist ext. to 65 deg. to increase wt. brg on RUE arm. Goal to be met by: 10/16/17 Progress towards goal: Progressing Goal #4: Pt to increase RUE elbow flexion to 145 deg to increase combing his hair. Goal to be met by: 09/15/17 Progress towards goal: Progressing Plan PLAN OF CARE EXPIRES ON:: 10/16/17 ORDER # VISITS AND/OR THROUGH DATE: 12 PLAN: Cont per POC
--- NOTE | 2017-09-20 10:42 | RS.OTCXNS ---
OT Case Note Date of Scheduled Appointment: 09/20/17 Type: Cancel (Re-scheduled.)
--- NOTE | 2017-09-22 13:23 | RS.OTDNOTE ---
Subjective Date of Note: 09/22/17 Visit #: 7 Date of Evaluation: 08/28/17 Payer Source: Medicaid Treatment Diagnosis: Right elbow fracture *Precautions: New orders of agressive ROM, 50% WBing on the L LE. Current Complaints/Gains: Pt agrees with theapist and believes he was able extend his UE more this date following estim. Pain Assessment - Pain Description Pain Description: Tightness, Radiating, Sharp, Throbbing, Aching Pain Location: Right Elbow Pain Description: aches Modalities - Treatment Modality: Electrical Stim Attended Parameters/Method Applied: To pt tolerance, 2 pads with gentle prolonged stretching performed during Treatment Area: elbow - Hot Pack/Cryotherapy Treatment: Hot Pack, Cryotherapy Comments:: HP during estim application with CP applied x 10+ mins following therapy. Interventions - Exercise/Activities Exercise/Activities/Manual Therapy: Progressive stretching of the elbow into flexion holding 2 minutes x 6 reps with 10# with UE hanging down beside chair. Stretching/PROM of the RUE elbow into extension/flexion. Pt performing green RUE elbow flexion, 12/04. Shucking motion of two bones of the forearm, joint mobs, to RUE radius and ulna. Pro/supination also performed. HOME EXERCISE PROGRAM: Progressive stretching of the RUE Elbow. - Objective Findings Objective Findings:: Pt has limited pronation of RUE. Pain in the RUE elbow. Measurement for elbow AROM is -38 to 90 degrees. - Charges Timed Code Treatment Minutes: 55 Total Treatment Time: 65 Procedures billed for this date of service:: CP MT2 ESTIM Assessment Patient Education: Education of diagnosis, Body/Joint mechanics, Home Exercise Program, Home Safety, Activity Modification, Education of Plan of Care Patient demonstrates compliance with HEP?: Yes Short Term Goals Goal #1: Pt to increase his RUE elbow ext. to -15 deg. 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 to 55 deg. to increase wt. brg on RUE arm. Goal to be met by: 09/11/17 Progress towards goal: Progressing Goal #4: Pt to increase RUE elbow flexion to 130 deg to increase combing his hair. Goal to be met by: 09/11/17 Progress towards goal: Progressing Spray Machine Loader Goals Goal #1: Pt to increase his RUE elbow ext. to -5 deg. 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 to 65 deg. to increase wt. brg on RUE arm. Goal to be met by: 10/16/17 Progress towards goal: Progressing Goal #4: Pt to increase RUE elbow flexion to 145 deg to increase combing his hair. Goal to be met by: 09/15/17 Progress towards goal: Progressing Plan PLAN OF CARE EXPIRES ON:: 10/16/17 ORDER # VISITS AND/OR THROUGH DATE: 12 PLAN: Cont per POC
--- NOTE | 2017-09-25 15:48 | RS.OPPTDN ---
Subjective Date of Note: 09/22/17 Visit #: 11 Date of Evaluation: 08/14/17 Payer Source: Medicaid Treatment Diagnosis: Left LE pain, knee stiffness, unable to ambulate Current Subjective/complaints:: Patient says he is walking more on his L LE. He says his foot and ankle has been swollen as a result. He says that he still has trouble with flexing the knee and continues to say it's "stuck." Reports he returns to the MD 10/03/17. *Precautions: New orders of agressive ROM, 50% WBing on the L LE. - Treatment Modality: Electrical Stim Unattended Parameters/Method Applied: hivolt 4 large pads crossed over the L knee @ 210 pk volts x 15 mins prior to therex Patient Position: Supine - Heat/Cryotherapy Treatment: Cryotherapy (with estim) Interventions - Exercise/Activities/Manual Therapy Exercises/Activities: Patient receives passive stretching for L knee flex/ext, hamstring and heel cords. Patient performs QS, SAQ, SLR. 2x10. At EOB: LAQ, contract/relax techniques several times to improve ROM. Standing: hip abd, flexion, ext with brace on x 15. Forward weight shifting onto the L LE x 10, lateral shifting x 10. Gait training throughout dept now not requiring prompts for increased WBing and standing erect instead of leaning forward onto crutches. Patient uses 2 crutches x 50' supervision with education of possibly progressing to 1 crutch end of next week. Total minutes of Exercise: 35 Manual Therapy: NA HOME EXERCISE PROGRAM: AP's, quad sets, standing knee flexion, and standing hip abduction and flexion. - Charges Timed Code Treatment Minutes: 35 Total Treatment Time: 50 Procedures billed for this date of service:: cp, estim (un), ex2 Assessment: Patient more consistent with WBing onto the L LE and using crutches with more erect posture. Decreased edema to the L foot and ankle. He remains with significant limitation regarding knee flexion. Patient demo hard end feel. Contract/Relax method only slightly effective. Patient to continue to work on gait training using 1-2 crutches and strengthen the L LE as much as possible before returning to MD 10/03/17. Patient Education: Education of diagnosis, Home Exercise Program, Education of Plan of Care Patient demonstrates compliance with HEP?: Yes Short Term Goals Goal #1: Pt independent and compliant with HEP. Goal to be met by: 08/24/17 Progress towards Goal:: Met Goal #2: Left knee flexion to 75 degrees AROM. Goal to be met by: 09/18/17 Progress towards Goal:: Progressing Goal #3: Left quad strength improved to 4-/5. Goal to be met by: 09/18/17 Progress towards Goal:: Progressing Senior Care Goals Goal #1: Pt left knee AROM to 110 degrees. Goal to be met by: 10/11/17 Goal #2: Pt to amb. with AAD with 50% WB on left LE. Goal to be met by: 10/11/17 Progress towards goal: Progressing Goal #3: Left quad strength 4/5. Goal to be met by: 10/11/17 Plan PLAN OF CARE EXPIRES ON:: 10/11/17 ORDER # VISITS AND/OR THROUGH DATE: 10/11/17 PLAN: Patient to continue BIW x 3 more sessions per progress report and until MD follow up on 10/03/17.
--- NOTE | 2017-09-26 14:07 | RS.OTDNOTE ---
Subjective Date of Note: 09/26/17 Visit #: 8 Date of Evaluation: 08/28/17 Payer Source: Medicaid Treatment Diagnosis: Right elbow fracture *Precautions: New orders of agressive ROM, 50% WBing on the L LE. Current Complaints/Gains: pt states no change and voices c/o pain with PROM extension/flexion and pro/supination Pain Assessment - Pain Description Pain Description: Tightness, Radiating, Sharp, Throbbing, Aching Pain Location: Right Elbow Pain Description: aches Modalities - Treatment Modality: Ultrasound Parameters/Method Applied: .05w/cm2 x 7 mins x 2 Treatment Area: anterior/posterior elbow Patient Position: Supine Comments:: UE in prolonged static extension - Hot Pack/Cryotherapy Treatment: Hot Pack Comments:: HP X 10 mins Interventions - Exercise/Activities Exercise/Activities/Manual Therapy: Progressive stretching of the elbow into flexion holding 2 minutes x 6 reps with 10# with UE hanging down beside chair. Stretching/PROM of the RUE elbow into extension/flexion. Pt performing green RUE elbow flexion, 12/04. Shucking motion of two bones of the forearm, joint mobs, to RUE radius and ulna. Pro/supination also performed. HOME EXERCISE PROGRAM: Progressive stretching of the RUE Elbow. - Objective Findings Objective Findings:: Pt has limited pronation of RUE. Pain in the RUE elbow. Measurement for elbow AROM is -38 to 90 degrees. - Charges Timed Code Treatment Minutes: 37 Total Treatment Time: 48 Procedures billed for this date of service:: EX US HP Assessment Patient Education: Education of diagnosis, Body/Joint mechanics, Home Exercise Program, Home Safety, Activity Modification, Education of Plan of Care Patient demonstrates compliance with HEP?: Yes Short Term Goals Goal #1: Pt to increase his RUE elbow ext. to -15 deg. Goal to be met by: 09/11/17 Progress towards goal: Progressing Goal #2: Pt to increase his RUE siphoner to 40# Goal to be met by: 09/11/17 Progress towards goal: Progressing Goal #3: Pt to increase RUE wrist ext. to 55 deg. to increase wt. brg on RUE arm. Goal to be met by: 09/11/17 Progress towards goal: Progressing Goal #4: Pt to increase RUE elbow flexion to 130 deg to increase combing his hair. Goal to be met by: 09/11/17 Progress towards goal: Progressing Configuration Management Manager Goals Goal #1: Pt to increase his RUE elbow ext. to -5 deg. Goal to be met by: 10/16/17 Progress towards goal: Progressing Goal #2: Pt to increase his RUE siphoner to 40# Goal to be met by: 10/16/17 Progress towards goal: Progressing Goal #3: Pt to increase RUE wrist ext. to 65 deg. to increase wt. brg on RUE arm. Goal to be met by: 10/16/17 Progress towards goal: Progressing Goal #4: Pt to increase RUE elbow flexion to 145 deg to increase combing his hair. Goal to be met by: 09/15/17 Progress towards goal: Progressing Plan PLAN OF CARE EXPIRES ON:: 10/16/17 ORDER # VISITS AND/OR THROUGH DATE: 12 PLAN: Pt returns to MD next wk
--- NOTE | 2017-09-26 16:45 | RS.OPPTDN ---
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 He states his MD and PA requests that he video his knee motion and gait so that he can send it to the office and show his progress. He says he is noticing improvement with amb, but also c/o swelling as a result. States he is only taking pain medication prn. *Precautions: New orders of agressive ROM, 50% WBing on the L LE. - Treatment Modality: Electrical Stim Unattended Parameters/Method Applied: hivolt 4 large pads surrounding the L knee @ 115-260 pk volts x 15 mins after therex Patient Position: Supine - Heat/Cryotherapy Treatment: Hot Pack (with estim per request) Interventions - Exercise/Activities/Manual Therapy Exercises/Activities: Patient receives more aggressive stretching for L knee flex/ext, hamstring and heel cords. Patient performs QS, SAQ, SLR. Hip abd/ add with red tband with knee extensive 2x10. DF with green tband. Biodex for Passive stretching both directions progressively x 10 mins. . At EOB: LAQ, contract/relax techniques several times to improve ROM. Total minutes of Exercise: 40 Manual Therapy: NA HOME EXERCISE PROGRAM: AP's, quad sets, standing knee flexion, and standing hip abduction and flexion. - Charges Timed Code Treatment Minutes: 40 Total Treatment Time: 55 Procedures billed for this date of service:: hp, estim (un), ex3 Assessment: Patient demo increased passive flexion to 68 degrees on biodex today. 53 degrees with heelslide and 61 degrees with hip bent at 90. Patient Education: Home Exercise Program, Education of Plan of Care Patient demonstrates compliance with HEP?: Yes Short Term Goals Goal #1: Pt independent and compliant with HEP. Goal to be met by: 08/24/17 Progress towards Goal:: Met Goal #2: Left knee flexion to 75 degrees AROM. Goal to be met by: 09/18/17 Progress towards Goal:: Progressing Goal #3: Left quad strength improved to 4-/5. Goal to be met by: 09/18/17 Progress towards Goal:: Progressing [facility] Goals Goal #1: Pt left knee AROM to 110 degrees. Goal to be met by: 10/11/17 Goal #2: Pt to amb. with AAD with 50% WB on left LE. Goal to be met by: 10/11/17 Progress towards goal: Progressing Goal #3: Left quad strength 4/5. Goal to be met by: 10/11/17 Plan PLAN OF CARE EXPIRES ON:: 10/11/17 ORDER # VISITS AND/OR THROUGH DATE: 10/11/17 PLAN: continue progressive stretching
--- NOTE | 2017-09-29 11:28 | RS.OTCXNS ---
OT Case Note Date of Scheduled Appointment: 09/29/17 Type: No Show
--- NOTE | 2017-09-29 11:49 | RS.CXNS ---
Date of scheduled appointment: 09/29/17 Type: No Show
== END 2017-10-03 23:59 ==
PROVIDERS: ATTEND Orthopaedic Surgery Sports Medicine
DX: S83.105D Unspecified dislocation of left knee, subsequent encounter (principal); S83.512D Sprain of anterior cruciate ligament of left knee, subsequent encounter; S83.412D Sprain of medial collateral ligament of left knee, subsequent encounter; S83.422D Sprain of lateral collateral ligament of left knee, subsequent encounter; M25.562 Pain in left knee; M25.462 Effusion, left knee; M25.662 Stiffness of left knee, not elsewhere classified; R26.9 Unspecified abnormalities of gait and mobility

== ENCOUNTER 2017-10-30 11:01 | Outpatient (RCR) ==
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
--- NOTE | 2017-10-30 15:28 | RS.OTDNOTE ---
Subjective Date of Note: 10/30/17 Visit #: 2 Date of Evaluation: 10/27/17 Payer Source: Medicaid Treatment Diagnosis: Right elbow stiffness, Right elbow pain *Precautions: No restrictions Current Complaints/Gains: Pt has increased pain with pronation and supination. Pain Assessment - Pain Description Pain Description: Burning, Radiating, Sharp, Aching, Acute Pain Location: Right Elbow Pain Description: aches Current Pain Intensity: 3 Worst Pain Intensity: 10 Modalities - Treatment Modality: Ultrasound Parameters/Method Applied: .4 w/cm2 to tricep and posterior elbow to decrease pain and increase elasticity for elbow flexion. Treatment Area: tricep and posterior elbow to decrease pain and increase elasticity for elb Patient Position: Supine - Hot Pack/Cryotherapy Treatment: Cryotherapy Interventions - Exercise/Activities Exercise/Activities/Manual Therapy: Progressive stretching of the elbow into extension in supine position and holding up over his head. Progressive stretching of RUE elbow into extension with 10# with UE hanging down beside chair x 5 reps. Stretching/PROM of the RUE elbow into extension over a towel roll. Pronation/supination stretched with elbow in flexion and pt supine. Manual therapy to loosen the tissue of the Right forearm. Shucking motion of two bones of the forearm, joint mobs, to RUE radius and ulna. Pro/supination also performed. HOME EXERCISE PROGRAM: Progressive stretching of the RUE Elbow into pronation with a weighted hammer and hold elbow to his side. A dowel behind his back and moving up and down his back side x 10 reps. Ice to elbow. - Objective Findings Objective Findings:: Pt has limited pronation of RUE. Pain in the RUE elbow. Measurement for elbow AROM is -38 to 90 degrees. - Charges Timed Code Treatment Minutes: 65 Total Treatment Time: 65 Procedures billed for this date of service:: EX x 2, US, MT, CP Assessment Assessment: Pt's extension and flexion are improving. Pt continues with pain in the elbow joint. US to help decrease the pain and the scar tissue and increase AROM of RUE elbow flexion/extension, Pronation/supination. Problems/Comments: Increased pain with pronation of RUE. Patient demonstrates compliance with HEP?: Yes Short Term Goals Goal #1: Pt to increase his RUE elbow ext. to -15 deg. Goal to be met by: 11/10/17 Goal #2: Pt to increase his RUE family medicine physician assistant to 40# Goal to be met by: 11/10/17 Goal #3: Pt to increase RUE wrist ext. to 65 deg. to increase wt. brg on RUE arm. Goal to be met by: 11/10/17 Goal #4: Pt to increase RUE elbow flexion to 130 deg to increase combing his hair. Goal to be met by: 11/10/17 Reading Efficiency Course Director Goals Goal #1: Pt to increase his RUE elbow ext. to -5 deg. Goal to be met by: 01/19/18 Goal #2: Pt to increase his RUE family medicine physician assistant to 40# Goal to be met by: 01/19/18 Goal #3: Pt to increase RUE wrist ext. to 65 deg. to increase wt. brg on RUE arm. Goal to be met by: 01/19/18 Goal #4: Pt to increase RUE elbow flexion to 145 deg to increase combing his hair. Goal to be met by: 01/19/18 Plan PLAN OF CARE EXPIRES ON:: 01/19/18 ORDER # VISITS AND/OR THROUGH DATE: 24 PLAN: Continue with OT 2X wk for 24 weeks to increase RUE elbow extension/ flexion, pronation/supination, wrist flexion. OT to increase functional AROM and strength for ADLS.
--- NOTE | 2017-11-03 08:29 | RS.OTDNOTE ---
Subjective Date of Note: 11/02/17 Visit #: 3 Date of Evaluation: 10/27/17 Payer Source: Medicaid Treatment Diagnosis: Right elbow stiffness, Right elbow pain *Precautions: No restrictions Current Complaints/Gains: Wolf states he returns to MD on for his follow- up appointment and to make plans for additional surgeries. Pain Assessment - Pain Description Pain Description: Burning, Radiating, Sharp, Aching, Acute Pain Location: Right Elbow Pain Description: aches Current Pain Intensity: 6 Worst Pain Intensity: 8 Modalities - Treatment Modality: Ultrasound Parameters/Method Applied: .04w/cm2 x 10 mins Treatment Area: anterior elbow Patient Position: Sitting - Hot Pack/Cryotherapy Treatment: Cryotherapy (CP x10 mins following tx) Interventions - Exercise/Activities Exercise/Activities/Manual Therapy: Progressive stretching of the elbow into extension in supine position and holding up over his head. Progressive stretching of RUE elbow into extension with 10# with UE hanging down beside chair x 5 reps. Stretching/PROM of the RUE elbow into extension over a towel roll. Pronation/supination stretched with elbow in flexion and pt supine. Manual therapy to loosen the tissue of the Right forearm. Shucking motion of two bones of the forearm and joint mobs to RUE radius and ulna. Pro/supination also performed, manually and with ROM wrist data warehousing manager. Pt also performed gradded digi-flex 10/1 x 3 strengths. Wrsit flexion/extension also performed in AG/GE plane. Progressive HEP instructions continued along with ed for OT POC /visits approved at this time. HOME EXERCISE PROGRAM: Progressive stretching of the RUE Elbow into pronation with a weighted hammer and hold elbow to his side. A dowel behind his back and moving up and down his back side x 10 reps. Ice to elbow. - Objective Findings Objective Findings:: Casing Crew strength increased to 34# this date. - Charges Timed Code Treatment Minutes: 51 Total Treatment Time: 63 Procedures billed for this date of service:: CP US EX MT Assessment Patient Education: Education of diagnosis, Body/Joint mechanics, Home Exercise Program, Home Safety, Activity Modification, Education of Plan of Care Patient demonstrates compliance with HEP?: Yes Short Term Goals Goal #1: Pt to increase his RUE elbow ext. to -15 deg. 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 to 65 deg. to increase wt. brg on RUE arm. Goal to be met by: 11/10/17 Progress towards goal: Progressing Goal #4: Pt to increase RUE elbow flexion to 130 deg to increase combing his hair. Goal to be met by: 11/10/17 Progress towards goal: Progressing Web Production Manager Goals Goal #1: Pt to increase his RUE elbow ext. to -5 deg. Goal to be met by: 01/19/18 Progress towards goal: Progressing Goal #2: Pt to increase his RUE ironworker foreman to 40# Goal to be met by: 01/19/18 Progress towards goal: Progressing Goal #3: Pt to increase RUE wrist ext. to 65 deg. to increase wt. brg on RUE arm. Goal to be met by: 01/19/18 Progress towards goal: Progressing Goal #4: Pt to increase RUE elbow flexion to 145 deg to increase combing his hair. Goal to be met by: 01/19/18 Progress towards goal: Progressing Plan PLAN OF CARE EXPIRES ON:: 01/19/18 ORDER # VISITS AND/OR THROUGH DATE: 9 PLAN: Cont current POC to max fx use of (R) UE with increased ROM and decreased c/o pain.
== END 2017-11-03 23:59 ==
PROVIDERS: ATTEND Orthopaedic Surgery Sports Medicine
DX: M25.621 Stiffness of right elbow, not elsewhere classified (principal); S83.105D Unspecified dislocation of left knee, subsequent encounter; S63.51 Sprain of carpal (joint); S83.412D Sprain of medial collateral ligament of left knee, subsequent encounter; S83.422D Sprain of lateral collateral ligament of left knee, subsequent encounter; S83.005S Unspecified dislocation of left patella, sequela

== ENCOUNTER 2017-11-02 14:00 | Outpatient (RCR) ==
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
--- NOTE | 2017-10-26 07:58 | RS.OPPTDN ---
Subjective Date of Note: 10/25/17 Visit #: 15 Date of Evaluation: 08/14/17 Payer Source: Medicaid Treatment Diagnosis: Left LE pain, knee stiffness, unable to ambulate Current Subjective/complaints:: Patient reports muscle soreness after last PT session ,but no elevated pain . *Precautions: No restrictions, brace for ambulation Pain Assessment - Pain Description Pain Location: L knee Pain Description: Tightness, Dull, Aching, Chronic Current Pain Intensity: 4/10 Worst Pain Intensity: 7/10 with stretches - Heat/Cryotherapy Treatment: Hot Pack (heat10 mins. prior to ex,cold 10 mins. after), Cryotherapy (heat x 10 mins. prior to exercise,cold x 15 mins. after) Interventions - Exercise/Activities/Manual Therapy Exercises/Activities: 40 mins.stretching exercises in supine and today.Passive flexion to 86 degrees ,extension doing quad set is -13 degrees. sitting Total minutes of Exercise: 40 Manual Therapy: NA Total minutes of Manual Therapy: 0 HOME EXERCISE PROGRAM: AP's, quad sets, standing knee flexion,ice - Charges Timed Code Treatment Minutes: 40 Total Treatment Time: 60 Procedures billed for this date of service:: hp,ex 3,cp Assessment: Progressing with passive ROM,requires multiple reps of stretches, but tolerates well,less muscle guarding as reps. increase.He does have elevated pain at end range of knee flexion,but soft end feel present. Patient Education: Education of diagnosis, Body/Joint mechanics, Home Exercise Program, Home Safety, Activity Modification, Education of Plan of Care Patient demonstrates compliance with HEP?: Yes Short Term Goals Goal #1: Pt independent and compliant with HEP. Goal to be met by: 11/08/17 Progress towards Goal:: Progressing Goal #2: Left knee PROM to 120 degrees. Goal to be met by: 11/08/17 Progress towards Goal:: Progressing Goal #3: Left quad strength improved to 4+/5 Goal to be met by: 11/08/17 Goal #4: Pt to amb. on crutches with WBAT and brace w/ minimal left knee pain. Goal to be met by: 11/15/17 [facility] Goals Goal #1: Patient knows HEP and to continue ex's to maintain functional level at D/C. Goal to be met by: 01/17/18 Progress towards goal: Progressing Goal #2: Pt amb. full WB with AAD community distances with minimal knee pain. Goal to be met by: 01/17/18 Goal #3: Pt able to perform selfcare and ADL's w/ minimal difficulty, independently. Goal to be met by: 01/17/18 Plan PLAN OF CARE EXPIRES ON:: 01/17/18 ORDER # VISITS AND/OR THROUGH DATE: 01/17/18 PLAN: Continue PT to restore motion and strength in the R knee for safe, functional gait.
--- NOTE | 2017-10-27 07:48 | RS.OPPTDN ---
Subjective Date of Note: 10/26/17 Visit #: 16 Date of Evaluation: 08/14/17 Payer Source: Medicaid Treatment Diagnosis: Left LE pain, knee stiffness, unable to ambulate Current Subjective/complaints:: Patient reports muscle soreness from last session ,but no elevation of pain. *Precautions: No restrictions, brace for ambulation Pain Assessment - Pain Description Pain Location: L knee Pain Description: Tightness, Dull, Aching, Chronic Current Pain Intensity: 06/13 - Heat/Cryotherapy Treatment: Hot Pack, Cryotherapy (10 mins. heatbefore ex,20 mins cold after) Interventions - Exercise/Activities/Manual Therapy Exercises/Activities: 35 mins.stretching exercises in supine and sitting today.Multiple reps. passive flexion to 89-91 degrees degrees ,extension doing quad set is -9 degrees .Contract-relax to quads and hamstrings for stretch.AAROM for heelslides and LAQs.Multiple reps.each. Total minutes of Exercise: 35 Manual Therapy: NA Total minutes of Manual Therapy: 0 HOME EXERCISE PROGRAM: AP's, quad sets, standing knee flexion,ice - Charges Timed Code Treatment Minutes: 35 Total Treatment Time: 65 Procedures billed for this date of service:: hp,ex 2,cp Assessment: Continues to have increased knee ROM passively with soft end feel.He has moderate warmth and edema in the L knee and pain at available end range of motion elicits muscle guarding.He is compliant to wearing the knee brace. Patient Education: Education of diagnosis, Body/Joint mechanics, Home Exercise Program, Home Safety, Activity Modification, Education of Plan of Care Patient demonstrates compliance with HEP?: Yes Short Term Goals Goal #1: Pt independent and compliant with HEP. Goal to be met by: 11/08/17 Progress towards Goal:: Progressing Goal #2: Left knee PROM to 120 degrees. Goal to be met by: 11/08/17 Progress towards Goal:: Progressing Goal #3: Left quad strength improved to 4+/5 Goal to be met by: 11/08/17 Goal #4: Pt to amb. on crutches with WBAT and brace w/ minimal left knee pain. Goal to be met by: 11/15/17 Behavioral Interventionist Goals Goal #1: Patient knows HEP and to continue ex's to maintain functional level at D/C. Goal to be met by: 01/17/18 Progress towards goal: Progressing Goal #2: Pt amb. full WB with AAD community distances with minimal knee pain. Goal to be met by: 01/17/18 Goal #3: Pt able to perform selfcare and ADL's w/ minimal difficulty, independently. Goal to be met by: 01/17/18 Plan PLAN OF CARE EXPIRES ON:: 01/17/18 ORDER # VISITS AND/OR THROUGH DATE: 01/17/18 PLAN: Continue PT to restore strength and motion in the L knee for safe gait and ability to do necessary ADL's.
--- NOTE | 2017-10-27 16:15 | RS.OPPTDN ---
Subjective Date of Note: 10/27/17 Visit #: 17 Date of Evaluation: 08/14/17 Payer Source: Medicaid Treatment Diagnosis: Left LE pain, knee stiffness, unable to ambulate Current Subjective/complaints:: No c/o. Patient enters clinic today ambulating crutches ,as opposed to w/c.He presen with minimal weight bearing on the L knee at this time. *Precautions: No restrictions, brace for ambulation Pain Assessment - Pain Description Pain Location: L knee Pain Description: Tightness, Dull, Aching, Chronic Current Pain Intensity: 06/13 - Heat/Cryotherapy Treatment: Hot Pack, Cryotherapy (15 mins. heat before ex. , 15 mins. cold after ) Interventions - Exercise/Activities/Manual Therapy Exercises/Activities: 45 mins.stretching exercises in supine and sitting today.Multiple reps. passive flexion to 89-91 degrees ,extension doing quad set is -9 degrees .Contract-relax to quads and hamstrings for stretch.AAROM for heelslides and LAQs.Multiple reps.each.90/90 hamstring stretches on L LE with knee extension to -7 passively. Total minutes of Exercise: 45 Manual Therapy: NA Total minutes of Manual Therapy: 0 HOME EXERCISE PROGRAM: AP's, quad sets, standing knee flexion,ice - Charges Timed Code Treatment Minutes: 45 Total Treatment Time: 75 Procedures billed for this date of service:: hp,ex 3,cp Assessment: Patient progressing ,with the same knee flexion passively as last session,but he also does not require as many reps. to achieve this motion.The knee edema is lessening.The quad strength is slowly improving ,but unable to do LAQ through full ROM due to quick fatigue.He is highly motivated to improve. Patient Education: Education of diagnosis, Body/Joint mechanics, Home Exercise Program, Home Safety, Activity Modification, Education of Plan of Care Patient demonstrates compliance with HEP?: Yes Short Term Goals Goal #1: Pt independent and compliant with HEP. Goal to be met by: 11/08/17 Progress towards Goal:: Progressing Goal #2: Left knee PROM to 120 degrees. Goal to be met by: 11/08/17 Progress towards Goal:: Progressing Comments:: same motion today ,but less stretch required to achieve 90 degrees Goal #3: Left quad strength improved to 4+/5 Goal to be met by: 11/08/17 Progress towards Goal:: Progressing Goal #4: Pt to amb. on crutches with WBAT and brace w/ minimal left knee pain. Goal to be met by: 11/15/17 Progress towards Goal:: Progressing Comments:: minimal weight bearing on L LE today Long-Term Goals Goal #1: Patient knows HEP and to continue ex's to maintain functional level at D/C. Goal to be met by: 01/17/18 Progress towards goal: Progressing Goal #2: Pt amb. full WB with AAD community distances with minimal knee pain. Goal to be met by: 01/17/18 Goal #3: Pt able to perform selfcare and ADL's w/ minimal difficulty, independently. Goal to be met by: 01/17/18 Plan PLAN OF CARE EXPIRES ON:: 01/17/18 ORDER # VISITS AND/OR THROUGH DATE: 01/17/18 PLAN: Continue PT to increase strength and motion in the L LE for functional gait.
--- NOTE | 2017-10-30 16:30 | RS.OPPTDN ---
Subjective Date of Note: 10/30/17 Visit #: 18 Date of Evaluation: 08/14/17 Payer Source: Medicaid Treatment Diagnosis: Left LE pain, knee stiffness, unable to ambulate Current Subjective/complaints:: Patient reports doing his exercises regularly, and is excited about his progress with the bending of the L knee.He is compliant to wearing the brace when up. *Precautions: No restrictions, brace for ambulation Pain Assessment - Pain Description Pain Location: L knee Pain Description: Tightness, Dull, Aching Current Pain Intensity: not rated - Heat/Cryotherapy Treatment: Hot Pack, Cryotherapy (20 mins. heat before ex,15 mins. cold after) Interventions - Exercise/Activities/Manual Therapy Exercises/Activities: 35 mins.stretching exercises in supine and sitting today.Multiple reps. passive flexion to 91-95 degrees ,extension doing quad set is -7 degrees .Contract-relax to quads and hamstrings for stretch.AAROM for heelslides and LAQs.Multiple reps.each.90/90 hamstring stretches on L LE with knee extension to -5 passively. Total minutes of Exercise: 35 Manual Therapy: NA Total minutes of Manual Therapy: 0 HOME EXERCISE PROGRAM: AP's, quad sets, standing knee flexion,ice - Charges Timed Code Treatment Minutes: 35 Total Treatment Time: 70 Procedures billed for this date of service:: hp,ex 2,cp Assessment: The L knee flexion is slightly better today ,but easier to achieve the 90 degree flexion as the edema amd pain lessen.The weakness in the quads limits the ability to do prolonged AROM at this time.Passive extension is also better ,and with a quad set ,he has no elevation of knee pain. Patient Education: Education of diagnosis, Body/Joint mechanics, Home Exercise Program, Home Safety, Activity Modification, Education of Plan of Care Patient demonstrates compliance with HEP?: Yes Short Term Goals Goal #1: Pt independent and compliant with HEP. Goal to be met by: 11/08/17 Progress towards Goal:: Progressing Goal #2: Left knee PROM to 120 degrees. Goal to be met by: 11/08/17 Progress towards Goal:: Progressing Goal #3: Left quad strength improved to 4+/5 Goal to be met by: 11/08/17 (N/A today,all passive exercise) Goal #4: Pt to amb. on crutches with WBAT and brace w/ minimal left knee pain. Goal to be met by: 11/15/17 Progress towards Goal:: Partially Met Fdc Goals Goal #1: Patient knows HEP and to continue ex's to maintain functional level at D/C. Goal to be met by: 01/17/18 Progress towards goal: Partially Met Goal #2: Pt amb. full WB with AAD community distances with minimal knee pain. Goal to be met by: 01/17/18 Goal #3: Pt able to perform selfcare and ADL's w/ minimal difficulty, independently. Goal to be met by: 01/17/18 Progress towards goal: Progressing Plan PLAN OF CARE EXPIRES ON:: 01/17/18 ORDER # VISITS AND/OR THROUGH DATE: 01/17/18 PLAN: Continue PT to increase strength and motion,both pasively and actively to return to highest level of function possible.
--- NOTE | 2017-10-31 16:53 | RS.OPPTDN ---
Subjective Date of Note: 10/31/17 Visit #: 19 Date of Evaluation: 08/14/17 Payer Source: Medicaid Treatment Diagnosis: Left LE pain, knee stiffness, unable to ambulate Current Subjective/complaints:: Patient enters clinic with more upright posture, improved weight bearing on the L LE. *Precautions: No restrictions, brace for ambulation Pain Assessment - Pain Description Pain Location: L knee Pain Description: Tightness, Dull, Aching, Chronic Current Pain Intensity: not rated - Heat/Cryotherapy Treatment: Hot Pack, Cryotherapy (20 mins,heat before ex,cold 20 mins after) Interventions - Exercise/Activities/Manual Therapy Exercises/Activities: 35 mins.stretching exercises in supine and sitting today.Multiple reps. passive flexion to 91-95 degrees ,extension doing quad set is -7 degrees .Contract-relax to quads and hamstrings for stretch.AAROM for heelslides and LAQs.Multiple reps.each.90/90 hamstring stretches on L LE with knee extension to -5 passively.Aded gait training with one crutch on R ,3 point and 2 point pattern with min . assist of1 Total minutes of Exercise: 35 Manual Therapy: NA Total minutes of Manual Therapy: 0 HOME EXERCISE PROGRAM: AP's, quad sets, standing knee flexion,ice - Charges Timed Code Treatment Minutes: 45 Total Treatment Time: 85 Procedures billed for this date of service:: hp,gt,ex 2,cp Assessment: Patient progressing ,able to increase the wt. brg. on the L LE , using one crutch with cues required for gait pattern and for correct posture.The knee flexion is the same today ,but less reps. to achieve.The passive knee extension is improving .The quads strength deficit at this time will not allow for patient to do a SLR with good form. Patient Education: Education of diagnosis, Body/Joint mechanics, Home Exercise Program, Home Safety, Activity Modification, Education of Plan of Care Patient demonstrates compliance with HEP?: Yes Short Term Goals Goal #1: Pt independent and compliant with HEP. Goal to be met by: 11/08/17 Progress towards Goal:: Partially Met Goal #2: Left knee PROM to 120 degrees. Goal to be met by: 11/08/17 (same motion ,but less reps. to achieve) Progress towards Goal:: Progressing Goal #3: Left quad strength improved to 4+/5 Goal to be met by: 11/08/17 (assisted SLR's began) Progress towards Goal:: Progressing Goal #4: Pt to amb. on crutches with WBAT and brace w/ minimal left knee pain. Goal to be met by: 11/15/17 Progress towards Goal:: Partially Met Alf Goals Goal #1: Patient knows HEP and to continue ex's to maintain functional level at D/C. Goal to be met by: 01/17/18 Progress towards goal: Partially Met Goal #2: Pt amb. full WB with AAD community distances with minimal knee pain. Goal to be met by: 01/17/18 Goal #3: Pt able to perform selfcare and ADL's w/ minimal difficulty, independently. Goal to be met by: 01/17/18 Progress towards goal: Progressing Plan PLAN OF CARE EXPIRES ON:: 01/17/18 ORDER # VISITS AND/OR THROUGH DATE: 01/17/18 PLAN: Continue PT ,utilizing stretch /strengthening for functional gait ,return to highest LOF possible.
--- NOTE | 2017-11-01 16:32 | RS.OPPTDN ---
Subjective Date of Note: 11/01/17 Visit #: 20 Date of Evaluation: 08/14/17 Payer Source: Medicaid Treatment Diagnosis: Left LE pain, knee stiffness, unable to ambulate Current Subjective/complaints:: No c/o. *Precautions: No restrictions, brace for ambulation Pain Assessment - Pain Description Pain Location: Lknee Pain Description: Tightness, Dull, Aching Current Pain Intensity: not rated - Heat/Cryotherapy Treatment: Cryotherapy (10 mins. to L knee) Interventions - Exercise/Activities/Manual Therapy Exercises/Activities: 40 mins.stretching exercises in supine and sitting today.Multiple reps. passive flexion to 91 degrees ,extension doing quad set is -7 degrees .Contract-relax to quads and hamstrings for stretch.AAROM for heelslides and LAQs.Multiple reps.each.90/90 hamstring stretches on L LE with knee extension to -5 passively. Gait training with one crutch on R ,3 point and 2 point pattern with min . assist of1 .Progressed to short steps with moderate hand-hold assist of 1 for 15 '. Total minutes of Exercise: 40 Manual Therapy: NA HOME EXERCISE PROGRAM: AP's, quad sets, standing knee flexion,ice - Charges Timed Code Treatment Minutes: cp,ex 2,gt Total Treatment Time: 50 Procedures billed for this date of service:: ex 2,gt,cp Assessment: Patient has improved gait with one crutch when he takes short steps, but is antalgic and requires tactile cues for better posture.Longer steps result in flexed posture and more antalgic gait.He rperts the L ankle feels tight,increased difficuklty placing the heel flat.He is highly motivated to improve . Patient Education: Education of diagnosis, Body/Joint mechanics, Home Exercise Program, Home Safety, Activity Modification, Education of Plan of Care Patient demonstrates compliance with HEP?: Yes Short Term Goals Goal #1: Pt independent and compliant with HEP. Goal to be met by: 11/08/17 Progress towards Goal:: Partially Met Goal #2: Left knee PROM to 120 degrees. Goal to be met by: 11/08/17 Progress towards Goal:: No Change Goal #3: Left quad strength improved to 4+/5 Goal to be met by: 11/08/17 (assisted SLR's began) Progress towards Goal:: Progressing Goal #4: Pt to amb. on crutches with WBAT and brace w/ minimal left knee pain. Goal to be met by: 11/15/17 Progress towards Goal:: Partially Met Cellophane Wrapping Examiner Goals Goal #1: Patient knows HEP and to continue ex's to maintain functional level at D/C. Goal to be met by: 01/17/18 Progress towards goal: Partially Met Goal #2: Pt amb. full WB with AAD community distances with minimal knee pain. Goal to be met by: 01/17/18 Goal #3: Pt able to perform selfcare and ADL's w/ minimal difficulty, independently. Goal to be met by: 01/17/18 Progress towards goal: Progressing Plan PLAN OF CARE EXPIRES ON:: 01/17/18 ORDER # VISITS AND/OR THROUGH DATE: 01/17/18 PLAN: Continue PT to strengthen L LE ,return to safe,functional gait with the least restrictive device.
--- NOTE | 2017-11-02 16:41 | RS.OPPTDN ---
Subjective Date of Note: 11/02/17 Visit #: 21 Date of Evaluation: 08/14/17 Payer Source: Medicaid Treatment Diagnosis: Left LE pain, knee stiffness, unable to ambulate Current Subjective/complaints:: Patient reports walking more with trying to place more weight on the R LE.Supervising PT spoke with 's office and it is OK to lock the brace for extension @ 15 degrees for satbilityand no restrictions on aggressive stretches. *Precautions: No restrictions, brace for ambulation Interventions - Exercise/Activities/Manual Therapy Exercises/Activities: 55 mins.stretching exercises in supine and sitting today.Multiple reps. passive flexion to 88 -90 degrees ,extension doing quad set is -5 degrees .Contract-relax to quads and hamstrings for stretch.AAROM for heelslides and LAQs.Multiple reps.each.90/90 hamstring stretches on L LE with knee extension to -5 passively. Gait training with one crutch on R ,3 point and 2 point pattern with min . assist of1 .Progressed to short steps with minimal hand-hold assist of 1 for 45 '. Total minutes of Exercise: 55 Manual Therapy: NA Total minutes of Manual Therapy: 0 HOME EXERCISE PROGRAM: AP's, quad sets, standing knee flexion,ice - Charges Timed Code Treatment Minutes: 55 Total Treatment Time: 60 Procedures billed for this date of service:: gt,ex 2,ther. act. Assessment: Patient is slowly improving with standing posture as he ambulates.He has limited heelstrike on the L due to heelcord tightness.The knee flexion end feel is firm at this time ,and pain is elicited past 90-93 degrees.HIs passive knee extension is progressing well,with soft end feel. Patient Education: Education of diagnosis, Body/Joint mechanics, Home Exercise Program, Home Safety, Activity Modification, Education of Plan of Care Patient demonstrates compliance with HEP?: Yes Short Term Goals Goal #1: Pt independent and compliant with HEP. Goal to be met by: 11/08/17 Progress towards Goal:: Partially Met Goal #2: Left knee PROM to 120 degrees. Goal to be met by: 11/08/17 Progress towards Goal:: No Change Goal #3: Left quad strength improved to 4+/5 Goal to be met by: 11/08/17 (assisted SLR's began) Progress towards Goal:: Progressing Goal #4: Pt to amb. on crutches with WBAT and brace w/ minimal left knee pain. Goal to be met by: 11/15/17 Progress towards Goal:: Partially Met [facility] Goals Goal #1: Patient knows HEP and to continue ex's to maintain functional level at D/C. Goal to be met by: 01/17/18 Progress towards goal: Partially Met Goal #2: Pt amb. full WB with AAD community distances with minimal knee pain. Goal to be met by: 01/17/18 Goal #3: Pt able to perform selfcare and ADL's w/ minimal difficulty, independently. Goal to be met by: 01/17/18 Progress towards goal: Progressing Plan PLAN OF CARE EXPIRES ON:: 01/17/18 ORDER # VISITS AND/OR THROUGH DATE: 01/17/18 PLAN: Continue PT to increase L knee motion ,increase strength in the entire LE for stability .
--- NOTE | 2017-11-03 14:13 | RS.CXNS ---
Date of scheduled appointment: 11/03/17 Type: Cancel Reason for Cancel/NS: said he would not be able to make it. Has schedule for next week.
== END 2017-11-03 23:59 ==
PROVIDERS: ATTEND Orthopaedic Surgery Sports Medicine
DX: M25.562 Pain in left knee (principal); M25.462 Effusion, left knee; M25.662 Stiffness of left knee, not elsewhere classified; M24.662 Ankylosis, left knee; R26.9 Unspecified abnormalities of gait and mobility; M25.621 Stiffness of right elbow, not elsewhere classified; Z98.890 Other specified postprocedural states

== ENCOUNTER 2017-11-24 14:00 | Outpatient (RCR) ==
--- NOTE | 2017-11-09 08:29 | RS.OTDNOTE ---
Subjective Date of Note: 11/08/17 Visit #: 4 Date of Evaluation: 08/28/17 Payer Source: Medicaid Treatment Diagnosis: Right elbow fracture *Precautions: No restrictions, brace for ambulation Current Complaints/Gains: Pt states his MD does not believe he will have any further UE surgeries. States MD stated he was able to flex UE to WNL duirng his past surgery. States he is more concerned with gaining increased flexion vs elbow extension. States c/o pain at 4/10 with increase during flexion and extension. Pain Assessment - Pain Description Pain Description: Tightness, Sharp, Aching Pain Location: Right Elbow Pain Description: aches Current Pain Intensity: 4 Worst Pain Intensity: 9 Modalities - Treatment Modality: Electrical Stim Attended Parameters/Method Applied: Hi-volt x 4 small pads to pt tolerance with PROM/ aggressive stretching and holding performed. Treatment Area: elbow Patient Position: Sitting - Hot Pack/Cryotherapy Treatment: Cryotherapy (x 10+ mins following tx) Interventions - Exercise/Activities Exercise/Activities/Manual Therapy: Progressive stretching of the elbow into flexion holding 2 minutes x 6 reps with 10# with UE hanging down beside chair. Stretching/PROM of the RUE elbow into extension/flexion. Pt performing green RUE elbow flexion, /. Shucking motion of two bones of the forearm, joint mobs, and manual therapy/scar massage perfored to RUE elbow radius and ulna. Progressive stretching wrist flexion/extension and pro/supination also performed along with progressive neurology teacher strength/digi-flex ex's. HOME EXERCISE PROGRAM: Progressive stretching of the RUE Elbow. - Objective Findings Objective Findings:: Pt has increased pronation and 80% supination of RUE. Pain in the RUE elbow. Measurement for elbow AROM is -32 extension and 98* flexion. Product Safety Officer strength at 46# 50#. - Charges Timed Code Treatment Minutes: 55 Total Treatment Time: 65 Procedures billed for this date of service:: CP ESTIM MT2 Assessment Patient Education: Education of diagnosis, Body/Joint mechanics, Home Exercise Program, Home Safety, Activity Modification, Education of Plan of Care Patient demonstrates compliance with HEP?: Yes Short Term Goals Goal #1: Pt to increase his RUE elbow ext. to -15 deg. Goal to be met by: 11/10/17 Progress towards goal: Progressing Comments: -32 Goal #2: Pt to increase his RUE neurology teacher to 40# Goal to be met by: 11/10/17 Progress towards goal: Met Comments: 50# Goal #3: Pt to increase RUE wrist ext. to 65 deg. to increase wt. brg on RUE arm. Goal to be met by: 11/10/17 Progress towards goal: Progressing Goal #4: Pt to increase RUE elbow flexion to 130 deg to increase combing his hair. Goal to be met by: 11/10/17 Progress towards goal: Progressing Comments: 98* Office Manager Goals Goal #1: Pt to increase his RUE elbow ext. to -5 deg. Goal to be met by: 01/19/18 Progress towards goal: Progressing Goal #2: Pt to increase his RUE neurology teacher to 90# Goal to be met by: 01/19/18 Progress towards goal: Met Comments: Upgraded from 40#-90# Goal #3: Pt to increase RUE wrist ext. to 65 deg. to increase wt. brg on RUE arm. Goal to be met by: 01/19/18 Progress towards goal: Progressing Goal #4: Pt to increase RUE elbow flexion to 145 deg to increase combing his hair. Goal to be met by: 01/19/18 Progress towards goal: Progressing Comments: 98* Plan PLAN OF CARE EXPIRES ON:: 01/19/19 ORDER # VISITS AND/OR THROUGH DATE: 9 PLAN: Cont per POC to max fx use with decreased c/o pain with all ADL's
--- NOTE | 2017-11-13 08:48 | RS.OTDNOTE ---
Subjective Date of Note: 11/10/17 Visit #: 5 Date of Evaluation: 08/28/17 Payer Source: Medicaid Treatment Diagnosis: Right elbow fracture *Precautions: No restrictions, brace for ambulation Current Complaints/Gains: Pt voices he is donning a CP at night on his elbow. States he continues with HEP of UE. 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 Pain Assessment - Pain Description Pain Description: Tightness, Sharp, Aching Pain Location: Right Elbow Pain Description: aches Current Pain Intensity: 4 Worst Pain Intensity: 9 Modalities - Treatment Modality: Electrical Stim Attended Parameters/Method Applied: Pt tolerance during PROM/aggressive stretching Treatment Area: elbow - Hot Pack/Cryotherapy Treatment: Cryotherapy Comments:: CP X10+mins Interventions - Exercise/Activities Exercise/Activities/Manual Therapy: Progressive stretching of the elbow into flexion holding 2 minutes x 6 reps with 10# with UE hanging down beside chair. Stretching/PROM of the RUE elbow into extension/flexion. Pt performing green RUE elbow flexion, /. Shucking motion of two bones of the forearm, joint mobs, and manual therapy/scar massage perfored to RUE elbow radius and ulna. Progressive stretching wrist flexion/extension and pro/supination also performed along with progressive industrial spray painter strength/digi-flex ex's. HOME EXERCISE PROGRAM: Progressive stretching of the RUE Elbow. - Objective Findings Objective Findings:: Pt has increased pronation and 80% supination of RUE. Pain in the RUE elbow. Measurement for elbow AROM is -32 extension and 98* flexion. Meterman strength at 46# 50#. - Charges Timed Code Treatment Minutes: 58 Total Treatment Time: 68 Procedures billed for this date of service:: CP ESTIM MT2 Assessment Patient Education: Education of diagnosis, Body/Joint mechanics, Home Exercise Program, Home Safety, Activity Modification, Education of Plan of Care Patient demonstrates compliance with HEP?: Yes Short Term Goals Goal #1: Pt to increase his RUE elbow ext. to -15 deg. Goal to be met by: 11/10/17 Progress towards goal: Progressing Goal #2: Pt to increase his RUE industrial spray painter to 40# Goal to be met by: 11/10/17 Progress towards goal: Met Goal #3: Pt to increase RUE wrist ext. to 65 deg. to increase wt. brg on RUE arm. Goal to be met by: 11/10/17 Progress towards goal: Progressing Goal #4: Pt to increase RUE elbow flexion to 130 deg to increase combing his hair. Goal to be met by: 11/10/17 Progress towards goal: Progressing Penitentiary Goals Goal #1: Pt to increase his RUE elbow ext. to -5 deg. Goal to be met by: 01/19/18 Progress towards goal: Progressing Goal #2: Pt to increase his RUE industrial spray painter to 90# Goal to be met by: 01/19/18 Progress towards goal: Met Goal #3: Pt to increase RUE wrist ext. to 65 deg. to increase wt. brg on RUE arm. Goal to be met by: 01/19/18 Progress towards goal: Progressing Goal #4: Pt to increase RUE elbow flexion to 145 deg to increase combing his hair. Goal to be met by: 01/19/18 Progress towards goal: Progressing Plan PLAN OF CARE EXPIRES ON:: 11/26/17 ORDER # VISITS AND/OR THROUGH DATE: 9 PLAN: continue per POC to max fx strength and ROM
--- NOTE | 2017-11-15 08:30 | RS.OTDNOTE ---
Subjective Date of Note: 11/14/17 Visit #: 6 Date of Evaluation: 08/28/17 Payer Source: Medicaid Treatment Diagnosis: Right elbow fracture *Precautions: No restrictions, brace for ambulation Current Complaints/Gains: Pt states "arm feels looser" following tx. States plans to have add'l sx on LE but not UE. States he is receiving his UE and LE brace this wk and that his arm will be in flexed positon. phoned therapy today for info with pt progress. Pain Assessment - Pain Description Pain Description: Tightness, Sharp, Aching Pain Location: Right Elbow Pain Description: aches Current Pain Intensity: 2-3 Worst Pain Intensity: 7+ Modalities - Treatment Modality: Electrical Stim Attended Parameters/Method Applied: X4 small pads on anterior/posterior elbow x 20 mins with gentle stretching performed. - Hot Pack/Cryotherapy Treatment: Hot Pack Comments:: HP X20 mins during estim/stretching Interventions - Exercise/Activities Exercise/Activities/Manual Therapy: Progressive stretching of the elbow into flexion holding 2 minutes x 6 reps with 10# with UE hanging down beside chair. Stretching/PROM of the RUE elbow into extension/flexion. Pt performing green RUE elbow flexion, 12/04. Shucking motion of two bones of the forearm, joint mobs, and manual therapy/scar massage perfored to RUE elbow radius and ulna. Progressive stretching wrist flexion/extension and pro/supination also performed along with progressive manager health strength/digi-flex ex's. HOME EXERCISE PROGRAM: Progressive stretching of the RUE Elbow. - Objective Findings Objective Findings:: Pt has increased pronation and 80% supination of RUE. Pain in the RUE elbow. Measurement for elbow AROM is -30 extension and 102* flexion. Intake Rn strength at 52# 50#. - Charges Timed Code Treatment Minutes: 46 Total Treatment Time: 58 Procedures billed for this date of service:: HP ESTIM(Attended) EX MT Assessment Patient Education: Education of diagnosis, Body/Joint mechanics, Home Exercise Program, Home Safety, Activity Modification, Education of Plan of Care Patient demonstrates compliance with HEP?: Yes Short Term Goals Goal #1: Pt to increase his RUE elbow ext. to -15 deg. Goal to be met by: 11/10/17 Progress towards goal: Progressing Goal #2: Pt to increase his RUE manager health to 40# Goal to be met by: 11/10/17 Progress towards goal: Met Goal #3: Pt to increase RUE wrist ext. to 65 deg. to increase wt. brg on RUE arm. Goal to be met by: 11/10/17 Progress towards goal: Progressing Goal #4: Pt to increase RUE elbow flexion to 130 deg to increase combing his hair. Goal to be met by: 11/10/17 Progress towards goal: Progressing Long-Term Goals Goal #1: Pt to increase his RUE elbow ext. to -5 deg. Goal to be met by: 01/19/18 Progress towards goal: Progressing Goal #2: Pt to increase his RUE manager health to 90# Goal to be met by: 01/19/18 Progress towards goal: Progressing Goal #3: Pt to increase RUE wrist ext. to 65 deg. to increase wt. brg on RUE arm. Goal to be met by: 01/19/18 Progress towards goal: Progressing Goal #4: Pt to increase RUE elbow flexion to 145 deg to increase combing his hair. Goal to be met by: 01/19/18 Progress towards goal: Progressing Plan PLAN OF CARE EXPIRES ON:: 01/19/18 ORDER # VISITS AND/OR THROUGH DATE: 9 PLAN: Continue per POC to max fx I, strength, and AROM
--- NOTE | 2017-11-17 15:39 | RS.OTDNOTE ---
Subjective Date of Note: 11/17/17 Visit #: 7 Date of Evaluation: 08/28/17 Payer Source: Medicaid Treatment Diagnosis: Right elbow fracture *Precautions: No restrictions, brace for ambulation Current Complaints/Gains: Pt continues stating he is feeling stronger and with increased ability to bend and straighten his UE. States he has now been told that his ins will not cover the expense to get an UE brace and has been told that the cost would be 6-8K. Pt ed on and shown UE braces for order on [employer] for under 100$. Pain Assessment - Pain Description Pain Description: Tightness, Sharp, Aching Pain Location: Right Elbow Pain Description: aches Modalities - Treatment Modality: Electrical Stim Attended Parameters/Method Applied: Pt tolerance x 4 pads x 20 mins. Treatment Area: elbow Patient Position: Sitting - Hot Pack/Cryotherapy Treatment: Hot Pack Comments:: HP x 20 mins during estim and PROM Interventions - Exercise/Activities Exercise/Activities/Manual Therapy: Progressive stretching of the elbow into flexion holding 2 minutes x 6 reps with 10# with UE hanging down beside chair. Stretching/PROM of the RUE elbow into extension/flexion. Pt performing green RUE elbow flexion, 12/04. Shucking motion of two bones of the forearm, joint mobs, and manual therapy/scar massage perfored to RUE elbow radius and ulna. Progressive stretching wrist flexion/extension and pro/supination also performed along with progressive fios line installer strength/digi-flex ex's. HOME EXERCISE PROGRAM: Progressive stretching of the RUE Elbow. - Objective Findings Objective Findings:: Pt has increased pronation and 80% supination of RUE. Pain in the RUE elbow. Measurement for elbow AROM is -30 extension and 102* flexion. Category Planner strength at 52# 50#. - Charges Timed Code Treatment Minutes: 55 Total Treatment Time: 59 Procedures billed for this date of service:: HP ESTIM EX MT Assessment Patient Education: Education of diagnosis, Body/Joint mechanics, Home Exercise Program, Home Safety, Activity Modification, Education of Plan of Care Patient demonstrates compliance with HEP?: Yes Short Term Goals Goal #1: Pt to increase his RUE elbow ext. to -15 deg. Goal to be met by: 11/10/17 Progress towards goal: Progressing Goal #2: Pt to increase his RUE fios line installer to 40# Goal to be met by: 11/10/17 Progress towards goal: Met Goal #3: Pt to increase RUE wrist ext. to 65 deg. to increase wt. brg on RUE arm. Goal to be met by: 11/10/17 Progress towards goal: Progressing Goal #4: Pt to increase RUE elbow flexion to 130 deg to increase combing his hair. Goal to be met by: 11/10/17 Progress towards goal: Progressing Halfway Goals Goal #1: Pt to increase his RUE elbow ext. to -5 deg. Goal to be met by: 01/19/18 Progress towards goal: Progressing Goal #2: Pt to increase his RUE fios line installer to 90# Goal to be met by: 01/19/18 Progress towards goal: Progressing Goal #3: Pt to increase RUE wrist ext. to 65 deg. to increase wt. brg on RUE arm. Goal to be met by: 01/19/18 Progress towards goal: Progressing Goal #4: Pt to increase RUE elbow flexion to 145 deg to increase combing his hair. Goal to be met by: 01/19/18 Progress towards goal: Progressing Plan PLAN OF CARE EXPIRES ON:: 01/19/18 ORDER # VISITS AND/OR THROUGH DATE: 9 PLAN: Cont per POC to max fx UE
--- NOTE | 2017-11-24 08:21 | RS.OTDNOTE ---
Subjective Date of Note: 11/21/17 Visit #: 8 Date of Evaluation: 08/28/17 Payer Source: Medicaid Treatment Diagnosis: Right elbow fracture *Precautions: No restrictions, brace for ambulation Current Complaints/Gains: Pt states "it's just stuck" and that he is still hoping to obtain an UE brace for static flexion of the arm. Pain Assessment - Pain Description Pain Description: Tightness, Sharp, Aching Pain Location: Right Elbow Pain Description: aches Current Pain Intensity: 3 Worst Pain Intensity: 8 Modalities - Treatment Modality: Ultrasound Parameters/Method Applied: 20% pulsed at .5w/cm2 x 20 mins to anterior elbow with static stretching of flexion/extension being performed. Patient Position: Sitting - Hot Pack/Cryotherapy Treatment: Hot Pack Comments:: x10 mins Interventions - Exercise/Activities Exercise/Activities/Manual Therapy: Progressive stretching of the elbow into flexion holding 2 minutes x 6 reps with 10# with UE hanging down beside chair. Stretching/PROM of the RUE elbow into extension/flexion. Pt performing green RUE elbow flexion, 12/04. Shucking motion of two bones of the forearm, joint mobs, and manual therapy/scar massage perfored to RUE elbow radius and ulna. Progressive stretching wrist flexion/extension and pro/supination also performed along with progressive orthotic/prosthetic clinician strength/digi-flex ex's. HOME EXERCISE PROGRAM: Progressive stretching of the RUE Elbow. - Objective Findings Objective Findings:: Pt has increased pronation and 85% supination of RUE. Pain in the RUE elbow. Measurement for elbow AROM is -30 extension and 102* flexion. Home Health Clinical Liaison strength at 52# 50#. - Charges Timed Code Treatment Minutes: 58 Total Treatment Time: 58 Procedures billed for this date of service:: [facility] EX Assessment Patient Education: Education of diagnosis, Body/Joint mechanics, Home Exercise Program, Home Safety, Activity Modification, Education of Plan of Care Patient demonstrates compliance with HEP?: Yes Short Term Goals Goal #1: Pt to increase his RUE elbow ext. to -15 deg. Goal to be met by: 11/10/17 Progress towards goal: Progressing Goal #2: Pt to increase his RUE orthotic/prosthetic clinician to 40# Goal to be met by: 11/10/17 Progress towards goal: Met Goal #3: Pt to increase RUE wrist ext. to 65 deg. to increase wt. brg on RUE arm. Goal to be met by: 11/10/17 Progress towards goal: Met Goal #4: Pt to increase RUE elbow flexion to 130 deg to increase combing his hair. Goal to be met by: 11/10/17 Progress towards goal: Progressing Fdc Goals Goal #1: Pt to increase his RUE elbow ext. to -5 deg. Goal to be met by: 01/19/18 Progress towards goal: Progressing Goal #2: Pt to increase his RUE orthotic/prosthetic clinician to 90# Goal to be met by: 01/19/18 Progress towards goal: Progressing Goal #3: Pt to increase RUE wrist ext. to 65 deg. to increase wt. brg on RUE arm. Goal to be met by: 01/19/18 Progress towards goal: Progressing Goal #4: Pt to increase RUE elbow flexion to 145 deg to increase combing his hair. Goal to be met by: 01/19/18 Progress towards goal: Progressing Plan PLAN OF CARE EXPIRES ON:: 01/19/18 ORDER # VISITS AND/OR THROUGH DATE: 9 PLAN: OTR to reassess pt on next visit. MD/therapy requesting add'l visits from ins.
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
== END 2017-12-03 23:59 ==
PROVIDERS: ATTEND Orthopaedic Surgery Sports Medicine
DX: S83.105D Unspecified dislocation of left knee, subsequent encounter (principal); S83.512S Sprain of anterior cruciate ligament of left knee, sequela; S83.412D Sprain of medial collateral ligament of left knee, subsequent encounter; S83.422D Sprain of lateral collateral ligament of left knee, subsequent encounter; S83.005S Unspecified dislocation of left patella, sequela

== ENCOUNTER 2017-12-01 09:00 | Outpatient (RCR) ==
--- NOTE | 2017-11-08 16:30 | RS.OPPTDN ---
Subjective Date of Note: 11/08/17 Visit #: 22 Date of Evaluation: 08/14/17 Payer Source: Medicaid Treatment Diagnosis: Left LE pain, knee stiffness, unable to ambulate Current Subjective/complaints:: Patient reports the follow-up appt. with Ortho went well,continue therapy ,no restrictions ,except he is to wear knee brace when up. *Precautions: No restrictions, brace for ambulation Pain Assessment - Pain Description Pain Location: L knee Pain Description: Tightness Current Pain Intensity: 0 at rest Other Comments regarding Pain:: increased pain at end range of stretching the quads to increase knee flexion Interventions - Exercise/Activities/Manual Therapy Exercises/Activities: 55 mins. total ,beginning on leg press with 15,#30 #, 45 # on leg press with brace on and assist for safety from PATHOLOGY LABORATORY DIRECTOR,,then 60 # stretching exercises in supine and sitting today.Multiple reps. passive flexion to 88 -90 degrees ,extension doing quad set is -5 degrees .Contract-relax to quads and hamstrings for stretch.AAROM for heelslides and LAQs.Multiple reps.each.90/90 hamstring stretches on L LE with knee extension to -5 passively. Total minutes of Exercise: 55 Manual Therapy: NA Total minutes of Manual Therapy: 0 HOME EXERCISE PROGRAM: AP's, quad sets, standing knee flexion,ice - Objective Findings Observations,measurements,etc.: 90 degrees flexion ,extension is WNL passively on bolster - Charges Timed Code Treatment Minutes: 55 Total Treatment Time: 55 Procedures billed for this date of service:: ex 4 Assessment: Patient has increased strength in the L quads and hamstrings as he is beginning to utilize the leg press.The knee motion for flexion has firm end feel,but he now has knee extension WNL passively.He continues to need once crutch ,as he is very antalgic and at risk for fall without assistive device.He is highly motivated to increase the L LE strength for safe ADL's. Patient Education: Education of diagnosis, Body/Joint mechanics, Home Exercise Program, Home Safety, Activity Modification, Education of Plan of Care Patient demonstrates compliance with HEP?: Yes Short Term Goals Goal #1: Pt independent and compliant with HEP. Goal to be met by: 11/08/17 Progress towards Goal:: Partially Met Goal #2: Left knee PROM to 120 degrees. Goal to be met by: 11/08/17 (90 -93 degrees) Progress towards Goal:: No Change Goal #3: Left quad strength improved to 4+/5 Goal to be met by: 11/08/17 Progress towards Goal:: Progressing Goal #4: Pt to amb. on crutches with WBAT and brace w/ minimal left knee pain. Goal to be met by: 11/15/17 Progress towards Goal:: Partially Met Race And Sports Book Writer Goals Goal #1: Patient knows HEP and to continue ex's to maintain functional level at D/C. Goal to be met by: 01/17/18 Progress towards goal: Partially Met Goal #2: Pt amb. full WB with AAD community distances with minimal knee pain. Goal to be met by: 01/17/18 Progress towards goal: Progressing Goal #3: Pt able to perform selfcare and ADL's w/ minimal difficulty, independently. Goal to be met by: 01/17/18 Progress towards goal: Progressing Plan PLAN OF CARE EXPIRES ON:: 01/17/18 ORDER # VISITS AND/OR THROUGH DATE: 01/17/18 PLAN: Continue PT to return the L knee to PLOF,resulting in safe gait and ADL's.
--- NOTE | 2017-11-10 16:27 | RS.OPPTDN ---
Subjective Date of Note: 11/10/17 Visit #: 23 Date of Evaluation: 08/14/17 Payer Source: Medicaid Treatment Diagnosis: Left LE pain, knee stiffness, unable to ambulate Current Subjective/complaints:: Patient reports he plans to return to gym next week for general strengthening,is compliant to safety issues,and wears the brace per 'juan manuel orders. *Precautions: No restrictions, brace for ambulation Pain Assessment - Pain Description Pain Location: L knee Pain Description: Tightness - Heat/Cryotherapy Treatment: Cryotherapy (20 mins. after exercises) Interventions - Exercise/Activities/Manual Therapy Exercises/Activities: 40 mins. total ,supine and sitting of passive stretches to hams./quads.Strengthening of SAQ with 4#,LAQ with 4#.contract-relax method to quads.Passive knee flwxion today is 92 -96 degrees with multiple reps. of all exercises.L knee extensionpassively is -3 degrees,-7 with quad set. Total minutes of Exercise: 40 Manual Therapy: NA HOME EXERCISE PROGRAM: AP's, quad sets, standing knee flexion,ice - Charges Timed Code Treatment Minutes: 40 Total Treatment Time: 60 Procedures billed for this date of service:: ex 3,cp Assessment: Patient has very hard end feel at available end ROM for flexion.He is able to tolerate light resistance for AROM in 40% of normal ROM.He continues to need assistive device for safe gait,otherwise he is antalgic and unsafe for gait distances in community. Patient Education: Education of diagnosis, Body/Joint mechanics, Home Exercise Program, Home Safety, Activity Modification, Education of Plan of Care Patient demonstrates compliance with HEP?: Yes Short Term Goals Goal #1: Pt independent and compliant with HEP. Goal to be met by: 11/08/17 Progress towards Goal:: Partially Met Goal #2: Left knee PROM to 120 degrees. Goal to be met by: 11/08/17 (93 - 96 degrees) Progress towards Goal:: Progressing Comments:: WITH AGGRESSIVE STRETCH Goal #3: Left quad strength improved to 4+/5 Goal to be met by: 11/08/17 Progress towards Goal:: Progressing Goal #4: Pt to amb. on crutches with WBAT and brace w/ minimal left knee pain. Goal to be met by: 11/15/17 Progress towards Goal:: Partially Met Dining Room Attendant Goals Goal #1: Patient knows HEP and to continue ex's to maintain functional level at D/C. Goal to be met by: 01/17/18 Progress towards goal: Partially Met Goal #2: Pt amb. full WB with AAD community distances with minimal knee pain. Goal to be met by: 01/17/18 Progress towards goal: Progressing Goal #3: Pt able to perform selfcare and ADL's w/ minimal difficulty, independently. Goal to be met by: 01/17/18 Progress towards goal: Progressing Plan PLAN OF CARE EXPIRES ON:: 01/17/18 ORDER # VISITS AND/OR THROUGH DATE: 01/17/18 PLAN: Continue PT to restore function in L knee,utilizing stretching / strengthening.
--- NOTE | 2017-11-14 16:12 | RS.OPPTDN ---
Subjective Date of Note: 11/14/17 Visit #: 24 Date of Evaluation: 08/14/17 Payer Source: Medicaid Treatment Diagnosis: Left LE pain, knee stiffness, unable to ambulate Current Subjective/complaints:: Patient continues to be highly motivated to improve.He reports exercising several times per week as tolerated ,also focusing on the stretching of the quads.He is using one crutch for safety when walking ,is compliant to wearing knee brace at all times when up. *Precautions: No restrictions, brace for ambulation Pain Assessment - Pain Description Pain Location: L knee Pain Description: Tightness Interventions - Exercise/Activities/Manual Therapy Exercises/Activities: 60 mins. total ,beginning with gait training using one crutch.Also used quad cane for short distance in the gym today with increased assist from REFINERY OPERATOR HELPER CRACKING UNIT.Supine and sitting of passive stretches to hams./ quads.Strengthening on leg press,multiple reps. @ 45 # ,then 60#, shortened ROM with assist for eccentric control.Aggressive stretch for flexion today @ 96 - 100 degrees.Extension is -7 to -4 passively today,but improved to WNL after prolonged static stretch. Total minutes of Exercise: 60 Manual Therapy: NA Total minutes of Manual Therapy: 0 HOME EXERCISE PROGRAM: AP's, quad sets, standing knee flexion,ice - Charges Timed Code Treatment Minutes: 60 Total Treatment Time: 60 Procedures billed for this date of service:: ex 3,gt 1 Assessment: Patient progressing ,has increased quad/hamstring strength ,along with increased passive flexion /extension.He is steadier and has better posture with crutch ,as opposed to using using the quad cane.The limited ROM in the R UE (elbow extension lag )limits the full benefit of using a cane. Patient Education: Education of diagnosis, Body/Joint mechanics, Home Exercise Program, Home Safety, Activity Modification, Education of Plan of Care Patient demonstrates compliance with HEP?: Yes Short Term Goals Goal #1: Pt independent and compliant with HEP. Goal to be met by: 11/08/17 Progress towards Goal:: Met Goal #2: Left knee PROM to 120 degrees. Goal to be met by: 11/08/17 (93 - 96 degrees) Progress towards Goal:: Progressing Goal #3: Left quad strength improved to 4+/5 Goal to be met by: 11/08/17 Progress towards Goal:: Progressing Goal #4: Pt to amb. on crutches with WBAT and brace w/ minimal left knee pain. Goal to be met by: 11/15/17 Progress towards Goal:: Partially Met Correction Goals Goal #1: Patient knows HEP and to continue ex's to maintain functional level at D/C. Goal to be met by: 01/17/18 Progress towards goal: Met Goal #2: Pt amb. full WB with AAD community distances with minimal knee pain. Goal to be met by: 01/17/18 Progress towards goal: Progressing Goal #3: Pt able to perform selfcare and ADL's w/ minimal difficulty, independently. Goal to be met by: 01/17/18 Progress towards goal: Progressing Plan PLAN OF CARE EXPIRES ON:: 01/17/18 ORDER # VISITS AND/OR THROUGH DATE: 01/17/18 PLAN: Continue PT to increase L knee/ L LE ROM and strength for safe transfers and gait on both even /uneven surfaces.
--- NOTE | 2017-11-17 16:20 | RS.OPPTDN ---
Subjective Date of Note: 11/17/17 Visit #: 25 Date of Evaluation: 08/14/17 Payer Source: Medicaid Treatment Diagnosis: Left LE pain, knee stiffness, unable to ambulate Current Subjective/complaints:: No c/o,continues to try walking as much as with more weight on the L LE,continues to be compliant to wearing the knee brace as directed by the . *Precautions: No restrictions, brace for ambulation Pain Assessment - Pain Description Pain Location: L knee Pain Description: Tightness, Dull, Aching, Chronic Pain Description: tightness Other Comments regarding Pain:: pain increased with aggressive stretch to quads Interventions - Exercise/Activities/Manual Therapy Exercises/Activities: 60 mins. total ,beginning with gait training using one crutch.no crutch for short distance in the gym today with increased assist from SENIOR CLINICAL DATA COORDINATOR.Supine and sitting of passive stretches to hams./quads.Strengthening on leg press,multiple reps. @ 45 # ,then 60#, shortened ROM with assist for eccentric control.Aggressive stretch for flexion today @ 96 - 98 degrees.Extension is -7 to -4 passively today,but improved to WNL after prolonged static stretch.Min. assist and cues required for proper form with SLR's. Total minutes of Exercise: 60 Manual Therapy: NA Total minutes of Manual Therapy: 0 HOME EXERCISE PROGRAM: AP's, quad sets, standing knee flexion,ice - Charges Timed Code Treatment Minutes: 60 Total Treatment Time: 60 Procedures billed for this date of service:: gait training,ex 3 Assessment: Patient requires assist for functional gait without device,cues required to swing the R LE past the L LE,generally uses step-to gait for safety.The quad weakness and knee instability still puts patient at risk for falls when outside the home walking longer distances.The quad tightness requires aggressive passive stretches to remain beyond the functional 90 degree ROM. Patient Education: Education of diagnosis, Body/Joint mechanics, Home Exercise Program, Home Safety, Activity Modification, Education of Plan of Care Patient demonstrates compliance with HEP?: Yes Short Term Goals Goal #1: Pt independent and compliant with HEP. Goal to be met by: 11/08/17 Progress towards Goal:: Met Goal #2: Left knee PROM to 120 degrees. Goal to be met by: 11/08/17 (95 - 98 degrees) Progress towards Goal:: Progressing Goal #3: Left quad strength improved to 4+/5 Goal to be met by: 11/08/17 Progress towards Goal:: Progressing Goal #4: Pt to amb. on crutches with WBAT and brace w/ minimal left knee pain. Goal to be met by: 11/15/17 Progress towards Goal:: Partially Met Paint Line Supervisor Goals Goal #1: Patient knows HEP and to continue ex's to maintain functional level at D/C. Goal to be met by: 01/17/18 Progress towards goal: Met Goal #2: Pt amb. full WB with AAD community distances with minimal knee pain. Goal to be met by: 01/17/18 Progress towards goal: Progressing Goal #3: Pt able to perform selfcare and ADL's w/ minimal difficulty, independently. Goal to be met by: 01/17/18 Progress towards goal: Progressing Plan PLAN OF CARE EXPIRES ON:: 01/17/18 ORDER # VISITS AND/OR THROUGH DATE: 01/17/18 PLAN: Continue PT to increase ROM and strength in L knee for safe transfers and gait ,using the least restrictive assistive device.
--- NOTE | 2017-11-21 16:27 | RS.OPPTDN ---
Subjective Date of Note: 11/21/17 Visit #: 26 Date of Evaluation: 08/14/17 Payer Source: Medicaid Treatment Diagnosis: Left LE pain, knee stiffness, unable to ambulate Current Subjective/complaints:: Patient continues to be highly motivated ,is doing exercises daily. *Precautions: No restrictions, brace for ambulation Pain Assessment - Pain Description Pain Location: L knee Pain Description: Dull, Aching Current Pain Intensity: not rated Other Comments regarding Pain:: sharp pain at end range of quads stretch Interventions - Exercise/Activities/Manual Therapy Exercises/Activities: 50 mins. total ,gait training without assistive device, with knee brace on for short distance in therapy gym,then leg press for L LE only (brace on ) ,multiple reps @ 60 # ,then 75 #.supine AROM of SAQ,SLR, heelslides,seated LAQ's.L knee extension is -30 to-33 degrees (extension lag) with SAQ or LAQ.Passive extension is full with hamstring stretch.Contract - relax to quads /hamstrings at end of session ,but no change in PROM. Total minutes of Exercise: 50 Manual Therapy: NA Total minutes of Manual Therapy: 0 HOME EXERCISE PROGRAM: AP's, quad sets, standing knee flexion,ice - Charges Timed Code Treatment Minutes: 50 Total Treatment Time: 50 Procedures billed for this date of service:: ex 3 Assessment: Patient has steadier gait,more erect posture with proper step sequencing using one crutch.The knee flexion end feel continues to be firm.He his able to fully extend the L knee passively,but unable to maintain terminal extension actively when doing SAQ or LAQ, indicating structural instability versus quad weakness.He can do a SLR through normal ROM ,but poor form ( extension lag ). Patient Education: Education of diagnosis, Body/Joint mechanics, Home Exercise Program, Home Safety, Activity Modification, Education of Plan of Care Patient demonstrates compliance with HEP?: Yes Short Term Goals Goal #1: Pt independent and compliant with HEP. Goal to be met by: 11/08/17 Progress towards Goal:: Met Goal #2: Left knee PROM to 120 degrees. Goal to be met by: 11/08/17 (95 - 98 degrees) Progress towards Goal:: No Change Goal #3: Left quad strength improved to 4+/5 Goal to be met by: 11/08/17 Progress towards Goal:: Progressing Goal #4: Pt to amb. on crutches with WBAT and brace w/ minimal left knee pain. Goal to be met by: 11/15/17 Progress towards Goal:: Met Assisted Goals Goal #1: Patient knows HEP and to continue ex's to maintain functional level at D/C. Goal to be met by: 01/17/18 Progress towards goal: Met Goal #2: Pt amb. full WB with AAD community distances with minimal knee pain. Goal to be met by: 01/17/18 Progress towards goal: Progressing Goal #3: Pt able to perform selfcare and ADL's w/ minimal difficulty, independently. Goal to be met by: 01/17/18 Progress towards goal: Progressing Plan PLAN OF CARE EXPIRES ON:: 01/17/18 ORDER # VISITS AND/OR THROUGH DATE: 01/17/18 PLAN: Discuss patient status with supervising PT,treat as directed.
--- NOTE | 2017-11-22 15:47 | RS.PTSUM ---
Progress Note/Summary Date of Note: 11/21/17 Date of Evaluation: 08/14/17 Number of Visits: 26 Current Complaints/Gains: Wolf reports working on his HEP daily. Objective Measurements/Presentation: Wolf attends therapy 3 times a week for aggressive stretching to the left knee. He is only able to reach -30 to -33 degrees left knee extension with SAQ or LAQ, but demonstrates full passive extension during hamstring stretch. Left knee flexion is to 96-98 degrees with aggressive stretching. Demonstrates a firm end-feel at end range flexion. He is ambulating with one crutch and the brace to the left knee, with a more steady gait. G Codes: NA Source of G Code Score: NA - Short Term Goals Goal #1: Pt independent and compliant with HEP. Goal to be met by: 11/08/17 Progress towards Goal:: Met Goal #2: Left knee PROM to 120 degrees. Goal to be met by: 11/08/17 (95 - 98 degrees) Progress towards Goal:: No Change Goal #3: Left quad strength improved to 4+/5 Goal to be met by: 12/06/17 Progress towards Goal:: Progressing Goal #4: Pt to amb. on crutches with WBAT and brace w/ minimal left knee pain. Goal to be met by: 11/15/17 Progress towards Goal:: Met - Tailor Helper Goals Goal #1: Patient knows HEP and to continue ex's to maintain functional level at D/C. Goal to be met by: 01/17/18 Progress towards goal: Met Goal #2: Pt amb. full WB with AAD community distances with minimal knee pain. Goal to be met by: 01/17/18 Progress towards goal: Progressing Goal #3: Pt able to perform selfcare and ADL's w/ minimal difficulty, independently. Goal to be met by: 01/17/18 Progress towards goal: Progressing - Assessment Assessment of Improvement/Progress: Wolf has gained approximately 12-14 degrees of knee flexion since his first visit to therapy following the manipulation on 10/23/17. He has received aggressive stretching with joint mobs to gain more ROM. He has full passive extension. Joint instability henders his ability to perform full extension with exercises of SAQ and LAQ's. He is ambulating now with one crutch, while wearing his knee brace. He continues to be limited with ambulation and performing selfcare and ADL's. Summary: Patient demonstrates potential to gain increased function with therapy , Maximum potential has yet to be attained. - Plan Plan: Continue Plan of Care Frequency: 2 X week Duration: 6 weeks PLAN OF CARE EXPIRES ON:: 01/17/18 ORDER # VISITS AND/OR THROUGH DATE: 01/17/18
--- NOTE | 2017-11-29 14:29 | RS.OPPTDN ---
Subjective Date of Note: 11/29/17 Visit #: 27 Date of Evaluation: 08/14/17 Payer Source: Medicaid Treatment Diagnosis: Left LE pain, knee stiffness, unable to ambulate Current Subjective/complaints:: Patient continues to be highly motivated to improve,is doing exercises daily. *Precautions: No restrictions, brace for ambulation Pain Assessment - Pain Description Pain Location: L knee Pain Description: Dull, Aching Current Pain Intensity: not rated Other Comments regarding Pain:: sharp pain with stretch at end range of flexion Interventions - Exercise/Activities/Manual Therapy Exercises/Activities: 45 mins. total ,3/15 reps LLE only @ 45#,60 #.Progressed to 75# in shortened ROM ( approx. 40 degrees flexion to full extension).Supine SLR's ,increased to 40-50 reps each set to fatigue the quads.Seated self stretch to 98-100 degrees flexion,passive extension is WNL,active extension is - 30 degrees. Total minutes of Exercise: 45 Manual Therapy: NA Total minutes of Manual Therapy: 0 HOME EXERCISE PROGRAM: AP's, quad sets, standing knee flexion,SLR,hip abd/ adduction,quads/hams. stretches. - Charges Timed Code Treatment Minutes: 45 Total Treatment Time: 45 Procedures billed for this date of service:: ex3 Assessment: Patient progressing ,has steadier gait for in home distances.He has increased strength in quads and hamstrings.The extension lag in the R knee appears to be the instability in MCL,LCL,ACL and PCL.Manual resistance given to quads/hams indicate normal strengh present.Passive extension is full,but he cannot maintain terminal knee extension. Patient Education: Education of diagnosis, Body/Joint mechanics, Home Exercise Program, Home Safety, Activity Modification, Education of Plan of Care Patient demonstrates compliance with HEP?: Yes Short Term Goals Goal #1: Pt independent and compliant with HEP. Goal to be met by: 11/08/17 Progress towards Goal:: Met Goal #2: Left knee PROM to 120 degrees. Goal to be met by: 11/08/17 (98 - 100 degrees) Progress towards Goal:: No Change Goal #3: Left quad strength improved to 4+/5 Goal to be met by: 12/06/17 Progress towards Goal:: Partially Met Goal #4: Pt to amb. on crutches with WBAT and brace w/ minimal left knee pain. Goal to be met by: 11/15/17 Progress towards Goal:: Met Fence Repairman Goals Goal #1: Patient knows HEP and to continue ex's to maintain functional level at D/C. Goal to be met by: 01/17/18 Progress towards goal: Met Goal #2: Pt amb. full WB with AAD community distances with minimal knee pain. Goal to be met by: 01/17/18 Progress towards goal: Progressing Goal #3: Pt able to perform selfcare and ADL's w/ minimal difficulty, independently. Goal to be met by: 01/17/18 Progress towards goal: Progressing Plan PLAN OF CARE EXPIRES ON:: 01/17/18 ORDER # VISITS AND/OR THROUGH DATE: 01/17/18 PLAN: Continue PT to achieve maximum stability and flexibilikty in the L knee.
--- NOTE | 2017-12-01 10:18 | RS.OPPTDN ---
Subjective Date of Note: 12/01/17 Visit #: 28 Date of Evaluation: 08/14/17 Payer Source: Medicaid Treatment Diagnosis: Left LE pain, knee stiffness, unable to ambulate Current Subjective/complaints:: Patient reports going to the gym regularly , feels he can continue the exercises on his own at this time,until the knee re- construction is done.Patient status discussed with the supervising PT,and agrees with this plan.Patient enters clinic wearing knee brace as directed ,no use of crutch this morning. *Precautions: No restrictions, brace for ambulation Pain Assessment - Pain Description Pain Location: L knee Current Pain Intensity: 0 at rest Other Comments regarding Pain:: stiffness - Heat/Cryotherapy Treatment: Hot Pack (20 mins. to quads before stretches) Interventions - Exercise/Activities/Manual Therapy Exercises/Activities: 30 mins. total ,4/25 reps of SLR's,then 10 reps of heelslides,3/20 LAQ's.Active L knee flexion is 90 degrees,pasive is 100 degrees.Passive extension is WNL,active extension doing LAQ is - 23 degrees. Total minutes of Exercise: 30 Manual Therapy: NA Total minutes of Manual Therapy: 0 HOME EXERCISE PROGRAM: AP's, quad sets, standing knee flexion,SLR,hip abd/ adduction,quads/hams. stretches. - Charges Timed Code Treatment Minutes: 30 Total Treatment Time: 50 Procedures billed for this date of service:: hp,ex 2 Assessment: Discussed patient status with patient and supervising PT present.He is able to do the exercises safely on his own at a community gym ,is compliant to wearing knee brace as directed.The strength in the L LE is normal,but the instability in the knee appears to be due to the ligament injuries. Patient Education: Education of diagnosis, Body/Joint mechanics, Home Exercise Program, Home Safety, Activity Modification, Education of Plan of Care Patient demonstrates compliance with HEP?: Yes Short Term Goals Goal #1: Pt independent and compliant with HEP. Goal to be met by: 11/08/17 Progress towards Goal:: Met Goal #2: Left knee PROM to 120 degrees. Goal to be met by: 11/08/17 (98 - 100 degrees) Progress towards Goal:: No Change Goal #3: Left quad strength improved to 4+/5 Goal to be met by: 12/06/17 Progress towards Goal:: Met Comments:: 5/5 for quads/hamstrings Goal #4: Pt to amb. on crutches with WBAT and brace w/ minimal left knee pain. Goal to be met by: 11/15/17 Progress towards Goal:: Met Comments:: No use of crutch today Coating Manager Goals Goal #1: Patient knows HEP and to continue ex's to maintain functional level at D/C. Goal to be met by: 01/17/18 Progress towards goal: Met Goal #2: Pt amb. full WB with AAD community distances with minimal knee pain. Goal to be met by: 01/17/18 Progress towards goal: Met Goal #3: Pt able to perform selfcare and ADL's w/ minimal difficulty, independently. Goal to be met by: 01/17/18 Progress towards goal: Met Plan PLAN OF CARE EXPIRES ON:: 01/17/18 ORDER # VISITS AND/OR THROUGH DATE: 01/17/18 PLAN: Hold PT due to rehab potential met at this time.Will resume PT when future POC is establshed after the knee re-constructuion. Comments:: Patient called as this note is being typed ,has appt. next . with .
== END 2017-12-03 23:59 ==
PROVIDERS: ATTEND Orthopaedic Surgery Sports Medicine
DX: S83.105D Unspecified dislocation of left knee, subsequent encounter (principal); S83.512S Sprain of anterior cruciate ligament of left knee, sequela; S83.412D Sprain of medial collateral ligament of left knee, subsequent encounter; S83.422D Sprain of lateral collateral ligament of left knee, subsequent encounter; S83.005S Unspecified dislocation of left patella, sequela

== ENCOUNTER 2017-12-18 08:00 | Outpatient (RCR) ==
--- NOTE | 2017-12-11 08:17 | RS.OTDNOTE ---
Subjective Date of Note: 12/08/17 Visit #: 10 Date of Evaluation: 10/28/17 Payer Source: Medicaid Treatment Diagnosis: Right elbow fracture *Precautions: No restrictions, brace for ambulation Current Complaints/Gains: Pt states he returned to MD on . States it will be months before he will have any further surgeries. States MD is trying to again A with obtaining an UE brace. Pain Assessment - Pain Description Pain Description: Tightness, Dull, Throbbing, Aching Pain Location: Right Elbow Pain Description: aches, sharp with elbow flexion Current Pain Intensity: 3 Worst Pain Intensity: 10 Modalities - Treatment Modality: Ultrasound Parameters/Method Applied: .05w/cm2 x 15 mins duirng UE stretching flexion/ extension Treatment Area: elbow Patient Position: Sitting - Hot Pack/Cryotherapy Treatment: Cryotherapy Comments:: CP X 10+ mins following treatment. Interventions - Exercise/Activities Exercise/Activities/Manual Therapy: Progressive stretching of the elbow into flexion holding 5 minutes with 10# with UE hanging down beside chair. Stretching/PROM of the RUE elbow into extension/flexion. Shucking motion of two bones of the forearm, joint mobs, and manual therapy/scar massage perfored to RUE elbow radius and ulna. Progressive stretching wrist flexion/extension and pro/supination also performed along with progressive retail solar advisor strength/digi- flex ex's. HOME EXERCISE PROGRAM: Progressive stretching of the RUE Elbow. Weight bearing to the RUE hand to increase elbow extension Ice to elbow. - Charges Timed Code Treatment Minutes: 44 Total Treatment Time: 58 Procedures billed for this date of service:: CP US MT2 Assessment Patient Education: Education of diagnosis, Body/Joint mechanics, Home Exercise Program, Home Safety, Activity Modification, Education of Plan of Care Patient demonstrates compliance with HEP?: Yes Short Term Goals Goal #1: Pt to increase his RUE elbow ext. to -15 deg. Goal to be met by: 11/24/17 Progress towards goal: Partially Met Goal #2: Pt to increase his RUE retail solar advisor to 60 Goal to be met by: 11/24/17 Progress towards goal: Progressing Goal #3: Pt to increase RUE wrist ext. to 60 deg. to increase wt. brg on RUE arm. Goal to be met by: 11/24/17 Progress towards goal: Progressing Goal #4: Pt to increase RUE elbow flexion to 130 deg to increase combing his hair. Goal to be met by: 11/24/17 Progress towards goal: Progressing Jail Goals Goal #1: Pt to increase his RUE elbow ext. to -5 deg. Goal to be met by: 01/19/18 Progress towards goal: Progressing Goal #2: Pt to increase his RUE retail solar advisor to 40# Progress towards goal: Progressing Goal #3: Pt to increase RUE wrist ext. to 65 deg. to increase wt. brg on RUE arm. Goal to be met by: 01/19/18 Progress towards goal: Progressing Goal #4: Pt to increase RUE elbow flexion to 145 deg to increase combing his hair. Goal to be met by: 01/19/18 Progress towards goal: Progressing Plan PLAN OF CARE EXPIRES ON:: 01/19/18 ORDER # VISITS AND/OR THROUGH DATE: 12 PLAN: Continue per POC to max fx UE AROM/strength.
--- NOTE | 2017-12-12 10:24 | RS.OTDNOTE ---
Subjective Date of Note: 12/12/17 Visit #: 11 Date of Evaluation: 10/28/17 Payer Source: Medicaid Treatment Diagnosis: Right elbow fracture *Precautions: No restrictions, brace for ambulation Current Complaints/Gains: Pt states he fell a few days ago. States incresased sensitivity on elbow following. States he has spoken with a UE brace distributor and he will have an UE brace soon. Wolf also states continued good compliance with UE stretching and ex's, stating he has been able to carry a 5 gallon bucket of water with his (R) UE in extension. Pain Assessment - Pain Description Pain Description: Tightness, Dull, Throbbing, Aching Pain Location: Right Elbow Pain Description: aches, sharp with elbow flexion Current Pain Intensity: 3 Worst Pain Intensity: 10 Modalities - Treatment Modality: Ultrasound Parameters/Method Applied: 20%, .05w/cm2 x 10 mins with extension/flexion being performed. Treatment Area: elbow Patient Position: Sitting - Hot Pack/Cryotherapy Treatment: Cryotherapy Interventions - Exercise/Activities Exercise/Activities/Manual Therapy: Progressive stretching of the elbow into flexion holding 5 minutes with 10# with UE hanging down beside chair. Stretching/PROM of the RUE elbow into extension/flexion. Shucking motion of two bones of the forearm, joint mobs, and manual therapy/scar massage perfored to RUE elbow radius and ulna. Progressive stretching wrist flexion/extension and pro/supination also performed along with progressive ignition specialist strength/digi- flex ex's. HOME EXERCISE PROGRAM: Progressive stretching of the RUE Elbow. Weight bearing to the RUE hand to increase elbow extension Ice to elbow. - Objective Findings Objective Findings:: Pt has increased pronation and 85% supination of RUE. Pain in the RUE elbow. Measurement for elbow AROM is -30 extension and 102* flexion. Furniture Shampooer strength has increased to 46#, 54#, and 55#. Avg is 51.6# - Charges Timed Code Treatment Minutes: 52 Total Treatment Time: 62 Procedures billed for this date of service:: CP MT2 Assessment Patient Education: Education of diagnosis, Body/Joint mechanics, Home Exercise Program, Home Safety, Activity Modification, Education of Plan of Care Patient demonstrates compliance with HEP?: Yes Short Term Goals Goal #1: Pt to increase his RUE elbow ext. to -15 deg. Goal to be met by: 11/24/17 Progress towards goal: Partially Met Goal #2: Pt to increase his RUE ignition specialist to 60 Goal to be met by: 11/24/17 Progress towards goal: Progressing Goal #3: Pt to increase RUE wrist ext. to 60 deg. to increase wt. brg on RUE arm. Goal to be met by: 11/24/17 Progress towards goal: Partially Met Comments: following therapy Goal #4: Pt to increase RUE elbow flexion to 130 deg to increase combing his hair. Goal to be met by: 11/24/17 Progress towards goal: Partially Met Comments: following therapy Software Engineer Mobile Goals Goal #1: Pt to increase his RUE elbow ext. to -5 deg. Goal to be met by: 01/19/18 Progress towards goal: Progressing Goal #2: Pt to increase his RUE ignition specialist to 40# Progress towards goal: Met Goal #3: Pt to increase RUE wrist ext. to 65 deg. to increase wt. brg on RUE arm. Goal to be met by: 01/19/18 Progress towards goal: Progressing Goal #4: Pt to increase RUE elbow flexion to 145 deg to increase combing his hair. Goal to be met by: 01/19/18 Progress towards goal: Progressing Plan PLAN OF CARE EXPIRES ON:: 01/19/18 ORDER # VISITS AND/OR THROUGH DATE: 12 PLAN: Cont per POC to max fx UE strength and AROM
--- NOTE | 2017-12-14 09:26 | RS.OTDNOTE ---
Subjective Date of Note: 12/14/17 Date of Evaluation: 10/28/17 Payer Source: Medicaid Treatment Diagnosis: Right elbow fracture *Precautions: No restrictions, brace for ambulation Current Complaints/Gains: Difficulty with flexion and the pain feels like it is cutting. Pain Assessment - Pain Description Pain Description: Tightness, Dull, Throbbing, Aching Pain Location: Right Elbow Pain Description: aches, sharp with elbow flexion Current Pain Intensity: 0 Worst Pain Intensity: 10 Other comments regarding pain:: Has excruciating pain with OT stretching RUE elbow into flexion. Modalities - Treatment Modality: Ultrasound Parameters/Method Applied: .4 w/cm2 to increase RUE elbow into flexion and extension by increasing elasticity in the elbow. Treatment Area: RUE elbow, lateral and posterior. Patient Position: Sitting Interventions - Exercise/Activities Exercise/Activities/Manual Therapy: Progressive stretching of the elbow into flexion holding 5 minutes with 10# with UE hanging down beside chair. Stretching/PROM of the RUE elbow into extension/flexion. Shucking motion of two bones of the forearm, joint mobs, and manual therapy/scar massage perfored to RUE elbow radius and ulna. Progressive stretching wrist flexion/extension and pro/supination also performed along with progressive yarn inspector strength/digi- flex ex's. Stretching of RUE wrist into extension holding for 30 seconds x 10 reps. Progressive stretching of RUE Wrist into supination/pronation holding 30 seconds x 10 reps x 2 sets. HOME EXERCISE PROGRAM: Progressive stretching of the RUE Elbow. Weight bearing to the RUE hand to increase elbow extension Ice to elbow. - Objective Findings Objective Findings:: Pt has increased pronation and 85% supination of RUE. Pain in the RUE elbow. Measurement for elbow AROM is -30 extension and 102* flexion. Commercial Drafter strength has increased to 46#, 54#, and 55#. Avg is 51.6# - Charges Timed Code Treatment Minutes: 60 Total Treatment Time: 60 Procedures billed for this date of service:: SHIRA WATERS x 2, EX Short Term Goals Goal #1: Pt to increase his RUE elbow ext. to -15 deg. Goal to be met by: 11/24/17 Progress towards goal: Partially Met Goal #2: Pt to increase his RUE yarn inspector to 60 Goal to be met by: 11/24/17 Progress towards goal: Progressing Goal #3: Pt to increase RUE wrist ext. to 60 deg. to increase wt. brg on RUE arm. Goal to be met by: 11/24/17 Progress towards goal: Partially Met Goal #4: Pt to increase RUE elbow flexion to 130 deg to increase combing his hair. Goal to be met by: 11/24/17 Progress towards goal: Partially Met 3D Artist Goals Goal #1: Pt to increase his RUE elbow ext. to -5 deg. Goal to be met by: 01/19/18 Progress towards goal: Progressing Goal #2: Pt to increase his RUE yarn inspector to 40# Progress towards goal: Met Goal #3: Pt to increase RUE wrist ext. to 65 deg. to increase wt. brg on RUE arm. Goal to be met by: 01/19/18 Progress towards goal: Progressing Goal #4: Pt to increase RUE elbow flexion to 145 deg to increase combing his hair. Goal to be met by: 01/19/18 Progress towards goal: Progressing Plan PLAN OF CARE EXPIRES ON:: 01/19/18 ORDER # VISITS AND/OR THROUGH DATE: 12 PLAN: Pt to continue with OT To increase AROM of RUE elbow, supination/pronation , wrist extension/flexion. continue to strengthen the RUE mass yarn inspector and increase functional movement to increase occupational performance.
--- NOTE | 2017-12-18 13:59 | RS.OTDNOTE ---
Subjective Date of Note: 12/18/17 Visit #: 13 Number of visits approved by Insurance: 17 with x2 approvals. Date of Evaluation: 10/28/17 Payer Source: Medicaid Treatment Diagnosis: Right elbow fracture *Precautions: No restrictions, brace for ambulation Current Complaints/Gains: Wolf states he is still awaiting his UE brace. States he is attending a gym and demo several ex's he is performing. States MD instructed him that he has no restrictions for his UE or LE. Wolf agrees to DC this date and to cont with HEP and manual therapy to UE with ed provided to his girlfriend. Pain Assessment - Pain Description Pain Description: Tightness, Dull, Throbbing, Aching Pain Location: Right Elbow Pain Description: aches, sharp with elbow flexion Current Pain Intensity: 2-3 Worst Pain Intensity: 8 Modalities - Treatment Modality: Ultrasound Parameters/Method Applied: .05w/cm2 x 10 mins, pulsed at 20% Treatment Area: posterior elbow - Hot Pack/Cryotherapy Treatment: Hot Pack, Cryotherapy Interventions - Exercise/Activities Exercise/Activities/Manual Therapy: Progressive stretching of the elbow into flexion holding 5 minutes with 10# with UE hanging down beside chair. Stretching/PROM of the RUE elbow into extension/flexion. Shucking motion of two bones of the forearm, joint mobs, and manual therapy/scar massage performed to RUE elbow radius and ulna. Progressive stretching wrist flexion/extension and pro/supination also performed along with progressive cancer program consultant strength/digi- flex ex's. Stretching of RUE wrist into extension holding for 30 seconds x 10 reps. Progressive stretching of RUE Wrist into supination/pronation holding 30 seconds x 10 reps x 2 sets. HOME EXERCISE PROGRAM: Progressive stretching of the RUE Elbow. Weight bearing to the RUE hand to increase elbow extension Ice to elbow. - Other Treatment/Services Treatment Details: Pt ed for continued HEP and manual group therapy counselor's. - Objective Findings Objective Findings:: Pt has increased pronation and 85% supination of RUE. Pain in the RUE elbow. Measurement for elbow AROM is -30 extension and 102* flexion. 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 Avg is 51.6# - Charges Timed Code Treatment Minutes: 48 Total Treatment Time: 58 Procedures billed for this date of service:: CP US EX MT Assessment Patient Education: Education of diagnosis, Body/Joint mechanics, Home Exercise Program, Home Safety, Activity Modification, Education of Plan of Care Patient demonstrates compliance with HEP?: Yes Short Term Goals Goal #1: Pt to increase his RUE elbow ext. to -15 deg. Goal to be met by: 11/24/17 Progress towards goal: Partially Met Goal #2: Pt to increase his RUE cancer program consultant to 60 Goal to be met by: 11/24/17 Progress towards goal: Progressing Goal #3: Pt to increase RUE wrist ext. to 60 deg. to increase wt. brg on RUE arm. Goal to be met by: 11/24/17 Progress towards goal: Partially Met Goal #4: Pt to increase RUE elbow flexion to 130 deg to increase combing his hair. Goal to be met by: 11/24/17 Progress towards goal: Partially Met Jail Goals Goal #1: Pt to increase his RUE elbow ext. to -5 deg. Goal to be met by: 01/19/18 Progress towards goal: Not Met Goal #2: Pt to increase his RUE cancer program consultant to 40# Progress towards goal: Met Goal #3: Pt to increase RUE wrist ext. to 65 deg. to increase wt. brg on RUE arm. Goal to be met by: 01/19/18 Progress towards goal: Not Met Goal #4: Pt to increase RUE elbow flexion to 145 deg to increase combing his hair. Goal to be met by: 01/19/18 Progress towards goal: Not Met Plan Dates of General Neurologist Goals: 12/25/17 Expiration date of current Insurance Approval:: 12/25/17 PLAN: DC pt at this time. Pt to cont with his current POC. pt does not return to MD for another 3-4 wks. Comments: DC today
--- NOTE | 2017-12-18 14:03 | RS.OTQKDC ---
OT Discharge Date of Discharge: 12/18/17 Number of Visits: 13 Reason for Discharge: Pt DC to cont his HEP. Brace on order with MD.
== END 2018-01-03 23:59 ==
PROVIDERS: ATTEND Orthopaedic Surgery Sports Medicine
DX: M25.621 Stiffness of right elbow, not elsewhere classified (principal); S42.401D Unspecified fracture of lower end of right humerus, subsequent encounter for fracture with routine healing; Z98.890 Other specified postprocedural states

== ENCOUNTER 2018-03-28 09:00 | Outpatient (RCR) ==
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
--- NOTE | 2018-03-26 10:19 | RS.OPPTDN ---
Subjective Date of Note: 03/26/18 Visit #: 2 Number of visits approved by Insurance: pending Date of Evaluation: 03/23/18 Payer Source: Medicaid Treatment Diagnosis: Left knee pain, left knee joint effusion, s/p ACL and MCL reconstruction Current Subjective/complaints:: Patient enters clinic on crutches,TTWB L LE, wearing knee brace as directed.Supervising PT present ,has spoken with Dr. Do' s office,okay to flex the knee passively to 40 degrees. *Precautions: Brace locked in full extension, TTWB Pain Assessment - Pain Description Pain Location: L knee Pain Description: Tightness, Dull, Aching Current Pain Intensity: 3/10 - Heat/Cryotherapy Treatment: Cryotherapy (20 mins. after exercises) Interventions - Exercise/Activities/Manual Therapy Exercises/Activities: 40 mins. ,multiple reps. of AP's, Quad sets, and SLR's. Passive L heelcord stretches to neutral. Total minutes of Exercise: 40 Manual Therapy: NA Total minutes of Manual Therapy: 0 HOME EXERCISE PROGRAM: AP's, Quad sets, SLR's,passive heelcord stretches. - Objective Findings Observations,measurements,etc.: Passive flexion 40 degrees with no significant increased knee pain. - Charges Timed Code Treatment Minutes: 40 Total Treatment Time: 60 Procedures billed for this date of service:: ex 3,cp Assessment: Patient is able to actively do SLR today,indicating improved firing of quads today.He is compliant to TTWB on L LE,and wearing knee brace as directed.He is also doing HEP several times throughout the day. Patient Education: Education of diagnosis, Body/Joint mechanics, Home Exercise Program, Home Safety, Activity Modification, Education of Plan of Care Patient demonstrates compliance with HEP?: Yes Short Term Goals Goal #1: Pt independent and compliant with HEP and surgery precautions. Goal to be met by: 04/13/18 Progress towards Goal:: Progressing Goal #2: Left quad strength increased to 4+/5. Goal to be met by: 04/13/18 Progress towards Goal:: Progressing Goal #3: Left knee ROM 0-40 degrees. Goal to be met by: 04/13/18 Progress towards Goal:: Progressing Goal #4: . Freight Flow Sales Leader Goals Goal #1: Pt knows HEP and to continue ex's to maintain functional level at D/c Goal to be met by: 06/21/18 Progress towards goal: Progressing Goal #2: Score on LE functional scale improved to 60/80. Goal to be met by: 06/21/18 Goal #3: Left knee AROM WFL's to perform all ADL's without difficulty. Goal to be met by: 06/21/18 Goal #4: Pt to amb. w/o assistive device, community distances without gait deviation Goal to be met by: 06/21/18 Plan Dates of Nursing Home Goals: 06/21/18 Expiration date of current Insurance Approval:: pending PLAN: Cont. skillled PT to strengthen and increase ROM of L knee,utilizing the PCL/ACL/MCL protocol as directed by Dr. Do.
--- NOTE | 2018-03-28 10:28 | RS.OPPTDN ---
Subjective Date of Note: 03/28/18 Visit #: 3 Number of visits approved by Insurance: pending Date of Evaluation: 03/23/18 Payer Source: Medicaid Treatment Diagnosis: Left knee pain, left knee joint effusion, s/p ACL and MCL reconstruction Current Subjective/complaints:: Patient reports the L knee /LE is improving , easier to do a straight leg raise. He is compliant to wearing brace and TTWB status. *Precautions: Brace locked in full extension, TTWB Pain Assessment - Pain Description Pain Location: L knee/LE Pain Description: Tightness, Dull, Aching Current Pain Intensity: 3/10 - Treatment Modality: Electrical Stim Unattended Parameters/Method Applied: 20 mins. high volt to L knee channel 1 above knee @ 125 pv,channel 2 below knee @ 110 pv. Patient Position: Supine - Heat/Cryotherapy Treatment: Cryotherapy (concurrent with e-stim) Interventions - Exercise/Activities/Manual Therapy Exercises/Activities: 25 mins. ,multiple reps. of AP's, Quad sets, and SLR's. Passive L heelcord stretches to neutral.Passive L knee flexion to 40 degrees .Supervising PT present and changed the compression dressing today. Total minutes of Exercise: 25 Manual Therapy: NA Total minutes of Manual Therapy: 0 HOME EXERCISE PROGRAM: AP's, Quad sets, SLR's,passive heelcord stretches. - Charges Timed Code Treatment Minutes: 45 Total Treatment Time: 60 Procedures billed for this date of service:: cp,e-stim,ex 2 Assessment: Patient able to flex/extend toes ,but minimal DF present actively .He tolerates the passive flexion well,no increase in pain ,reports tightness only.He has improved firing of the quads ,resulting in safe SLR's,during concentric/eccentrics. Patient Education: Education of diagnosis, Body/Joint mechanics, Home Exercise Program, Home Safety, Activity Modification, Education of Plan of Care Patient demonstrates compliance with HEP?: Yes Short Term Goals Goal #1: Pt independent and compliant with HEP and surgery precautions. Goal to be met by: 04/13/18 Progress towards Goal:: Progressing Goal #2: Left quad strength increased to 4+/5. Goal to be met by: 04/13/18 Progress towards Goal:: Progressing Goal #3: Left knee ROM 0-40 degrees. Goal to be met by: 04/13/18 Progress towards Goal:: Progressing Goal #4: . Alf Goals Goal #1: Pt knows HEP and to continue ex's to maintain functional level at D/c Goal to be met by: 06/21/18 Progress towards goal: Progressing Goal #2: Score on LE functional scale improved to 60/80. Goal to be met by: 06/21/18 Goal #3: Left knee AROM WFL's to perform all ADL's without difficulty. Goal to be met by: 06/21/18 Goal #4: Pt to amb. w/o assistive device, community distances without gait deviation Goal to be met by: 06/21/18 Plan Dates of Ornamental Iron Worker Apprentice Goals: 06/21/18 Expiration date of current Insurance Approval:: pending PLAN: Cont. skilled PT to restore maximum strength and motion in the L knee for safe transfers and gait on even /uneven surfaces.
--- NOTE | 2018-04-03 09:42 | RS.CXNS ---
Date of scheduled appointment: 04/03/18 Type: Rescheduled Reason for Cancel/NS: Going to at [place] today.
== END 2018-04-05 23:59 ==
PROVIDERS: ATTEND Orthopaedic Surgery Sports Medicine
DX: M25.562 Pain in left knee (principal); M25.462 Effusion, left knee; M25.662 Stiffness of left knee, not elsewhere classified; R26.9 Unspecified abnormalities of gait and mobility; Z98.890 Other specified postprocedural states

== ENCOUNTER 2018-05-03 08:00 | Outpatient (RCR) ==
--- NOTE | 2018-04-06 11:27 | RS.OPPTDN ---
Subjective Date of Note: 04/06/18 Visit #: 4 Number of visits approved by Insurance: pending Date of Evaluation: 03/23/18 Payer Source: Medicaid Treatment Diagnosis: Left knee pain, left knee joint effusion, s/p ACL and MCL reconstruction Current Subjective/complaints:: Patient reports soreness and stiffness in L knee ,but no sharp pain.He has had follow-up appt. earlier this week,orders to continue the protocol per Dr. Do. *Precautions: Brace locked in full extension, TTWB Pain Assessment - Pain Description Pain Location: L knee Pain Description: Tightness, Dull, Aching Current Pain Intensity: 06/13 - Treatment Modality: Electrical Stim Unattended Parameters/Method Applied: 20 mins. high volt ,channel 1 and 2 @ 155 pv to L knee region Patient Position: Supine - Heat/Cryotherapy Treatment: Cryotherapy (concurrent with e-stim) Interventions - Exercise/Activities/Manual Therapy Exercises/Activities: 25 mins. ,multiple reps. of AP's, Quad sets, and SLR's. Passive L heelcord stretches to neutral.Passive L knee flexion to 40 degrees . Total minutes of Exercise: 25 Manual Therapy: NA Total minutes of Manual Therapy: 0 HOME EXERCISE PROGRAM: AP's, Quad sets, SLR's,passive heelcord stretches.HEP to be done WEARING BRACE per 's protocol. - Charges Timed Code Treatment Minutes: 25 Total Treatment Time: 45 Procedures billed for this date of service:: cp,e-stim ,ex 2 Assessment: L knee has less edema present,able to achieve passive knee flexion to 40 without difficulty,reports slight elevation of aching due to stretch,but no sharp pain present.He is able to do SLR with good control for concentric and eccentric contractions.He is compliant to wearing the L knee brace ,and remains on crutches ,TTWB on L LE. Patient Education: Education of diagnosis, Body/Joint mechanics, Home Exercise Program, Home Safety, Activity Modification, Education of Plan of Care Patient demonstrates compliance with HEP?: Yes Short Term Goals Goal #1: Pt independent and compliant with HEP and surgery precautions. Goal to be met by: 04/13/18 Progress towards Goal:: Progressing Goal #2: Left quad strength increased to 4+/5. Goal to be met by: 04/13/18 Progress towards Goal:: Progressing Goal #3: Left knee ROM 0-40 degrees. Goal to be met by: 04/13/18 (les discomfort with stretch) Progress towards Goal:: Progressing Goal #4: . Garbage Truck Driver Goals Goal #1: Pt knows HEP and to continue ex's to maintain functional level at D/c Goal to be met by: 06/21/18 Progress towards goal: Progressing Goal #2: Score on LE functional scale improved to 60/80. Goal to be met by: 06/21/18 Goal #3: Left knee AROM WFL's to perform all ADL's without difficulty. Goal to be met by: 06/21/18 Goal #4: Pt to amb. w/o assistive device, community distances without gait deviation Goal to be met by: 06/21/18 Plan Dates of [facility] Goals: 06/21/18 Expiration date of current Insurance Approval:: pending PLAN: Cont PT per protocol ordered by Dr. Do.
--- NOTE | 2018-04-10 12:50 | RS.OPPTDN ---
Subjective Date of Note: 04/10/18 Visit #: 5 Number of visits approved by Insurance: pending Date of Evaluation: 03/23/18 Payer Source: Medicaid Treatment Diagnosis: Left knee pain, left knee joint effusion, s/p ACL and MCL reconstruction Current Subjective/complaints:: Patient reports increased soreness the past few days.He is compliant to TTWB and wearing brace as directed.He will be 3 weeks post-op tomorrow. *Precautions: Brace locked in full extension, TTWB Pain Assessment - Pain Description Pain Location: L knee/LE Pain Description: Tightness, Sharp, Dull, Aching Current Pain Intensity: 4/10 Other Comments regarding Pain:: intermittent sharp pain at night - Treatment Modality: Electrical Stim Unattended Parameters/Method Applied: 20 mins. high volt ,channel 1 and 2 @ 145pv. Patient Position: Supine - Heat/Cryotherapy Treatment: Cryotherapy (concurrent with e-stim) Interventions - Exercise/Activities/Manual Therapy Exercises/Activities: 30 mins. ,multiple reps. of AP's, Quad sets, and SLR's. Passive L heelcord stretches to neutral.Passive L knee flexion to 46 degrees . Total minutes of Exercise: 30 Manual Therapy: NA HOME EXERCISE PROGRAM: AP's, Quad sets, SLR's,passive heelcord stretches.HEP to be done WEARING BRACE per 's protocol. - Charges Timed Code Treatment Minutes: 30 Total Treatment Time: 50 Procedures billed for this date of service:: cp,e-stim,ex 2 Assessment: Patient has moderate edema present ,moderate warmth in anterior and posterior aspect of L knee.The passive flexion is increased 6 degrees ,compared to last visit.The end feel is firm today.He is compliant to protocol recommende by Dr. Do. Patient Education: Education of diagnosis, Body/Joint mechanics, Home Exercise Program, Home Safety, Activity Modification, Education of Plan of Care Patient demonstrates compliance with HEP?: Yes Short Term Goals Goal #1: Pt independent and compliant with HEP and surgery precautions. Goal to be met by: 04/13/18 Progress towards Goal:: Progressing Goal #2: Left quad strength increased to 4+/5. Goal to be met by: 04/13/18 Progress towards Goal:: Progressing Goal #3: Left knee ROM 0-40 degrees. Goal to be met by: 04/13/18 Progress towards Goal:: Met Goal #4: . Pharmacy Informatics Specialist Goals Goal #1: Pt knows HEP and to continue ex's to maintain functional level at D/c Goal to be met by: 06/21/18 Progress towards goal: Progressing Goal #2: Score on LE functional scale improved to 60/80. Goal to be met by: 06/21/18 Goal #3: Left knee AROM WFL's to perform all ADL's without difficulty. Goal to be met by: 06/21/18 Goal #4: Pt to amb. w/o assistive device, community distances without gait deviation Goal to be met by: 06/21/18 Plan Dates of [facility] Goals: 06/21/18 Expiration date of current Insurance Approval:: pending PLAN: Cont. skilled PT per Feroz Do's prptocol fpr PCL/ACL/MCL reconstruction.
--- NOTE | 2018-04-12 08:47 | RS.CXNS ---
Date of scheduled appointment: 04/12/18 Type: No Show Reason for Cancel/NS: Unknown
--- NOTE | 2018-04-13 09:30 | RS.OPPTDN ---
Subjective Date of Note: 04/13/18 Visit #: 6 Number of visits approved by Insurance: pending Date of Evaluation: 03/23/18 Payer Source: Medicaid Treatment Diagnosis: Left knee pain, left knee joint effusion, s/p ACL and MCL reconstruction Current Subjective/complaints:: Patient reports unlocking the brace to 30 degrees to assist with stretchwhen sitting .He is compliant to keeping it locked in full extension at all other times. *Precautions: Brace locked in full extension, TTWB Pain Assessment - Pain Description Pain Location: L knee Current Pain Intensity: 4/10 - Treatment Modality: Electrical Stim Unattended Parameters/Method Applied: 20 mins. IFC @ 15 ma to L knee. Patient Position: Supine - Heat/Cryotherapy Treatment: Cryotherapy (concurrent with e-stim) Interventions - Exercise/Activities/Manual Therapy Exercises/Activities: 35 mins. ,multiple reps. of AP's with yellow t-band, Quad sets, and SLR's. Passive L heelcord stretches to neutral.Passive L knee flexion to 50 degrees on bolster,then 55 degrees in sitting ( open chain). Total minutes of Exercise: 35 Manual Therapy: NA Total minutes of Manual Therapy: 0 HOME EXERCISE PROGRAM: AP's, Quad sets, SLR's,passive heelcord stretches.HEP to be done WEARING BRACE per 's protocol. - Charges Timed Code Treatment Minutes: 35 Total Treatment Time: 55 Procedures billed for this date of service:: cp e-stim,ex 2 Assessment: Patient has good form for SLR's .He has increased passive knee flexion today.He is compliant to wearing the brace as directed,also is TTWB with crutches. Patient Education: Education of diagnosis, Body/Joint mechanics, Home Exercise Program, Home Safety, Activity Modification, Education of Plan of Care Patient demonstrates compliance with HEP?: Yes Short Term Goals Goal #1: Pt independent and compliant with HEP and surgery precautions. Goal to be met by: 04/13/18 Progress towards Goal:: Met Goal #2: Left quad strength increased to 4+/5. Goal to be met by: 04/13/18 Progress towards Goal:: Progressing Goal #3: Left knee ROM 0-40 degrees. Goal to be met by: 04/13/18 Progress towards Goal:: Met Goal #4: . Community Health Consultant Goals Goal #1: Pt knows HEP and to continue ex's to maintain functional level at D/c Goal to be met by: 06/21/18 Progress towards goal: Progressing Goal #2: Score on LE functional scale improved to 60/80. Goal to be met by: 06/21/18 Goal #3: Left knee AROM WFL's to perform all ADL's without difficulty. Goal to be met by: 06/21/18 Goal #4: Pt to amb. w/o assistive device, community distances without gait deviation Goal to be met by: 06/21/18 Plan Dates of Community Health Consultant Goals: 06/21/18 Expiration date of current Insurance Approval:: pending PLAN: Cont . PT per Dr. Do's protocol,patient is 3 weeks post-op.
--- NOTE | 2018-04-17 09:10 | RS.OPPTDN ---
Subjective Date of Note: 04/17/18 Visit #: 7 Number of visits approved by Insurance: pending Date of Evaluation: 03/23/18 Payer Source: Medicaid Treatment Diagnosis: Left knee pain, left knee joint effusion, s/p ACL and MCL reconstruction Current Subjective/complaints:: Patient reports no L knee pain ,mostly soreness and stiffness.He is doing HEP as directed. *Precautions: Brace locked in full extension, TTWB Pain Assessment - Pain Description Pain Location: L knee Pain Description: Tightness Current Pain Intensity: 2 - Treatment Modality: Electrical Stim Unattended Parameters/Method Applied: IFC x 20 mns. @ 15 ma to L knee region. Interventions - Exercise/Activities/Manual Therapy Exercises/Activities: 35 mins. ,multiple reps. of AP's , Quad sets,patellar mobs. and SLR's. Passive L heelcord stretches to neutral.Passive L knee flexion to 50 degrees on bolster,then 65 degrees in sitting ( open chain). Total minutes of Exercise: 35 Manual Therapy: NA Total minutes of Manual Therapy: 0 HOME EXERCISE PROGRAM: AP's, Quad sets, SLR's,passive heelcord stretches.HEP to be done WEARING BRACE per 's protocol. - Charges Timed Code Treatment Minutes: 35 Total Treatment Time: 55 Procedures billed for this date of service:: hp,e-stim,ex 2 Assessment: Progressing well,has less warmth ,less edema in the L knee.He has increased passive knee flexion today with a 10 degree increase.He is compliant to the protocol. Patient Education: Education of diagnosis, Body/Joint mechanics, Home Exercise Program, Home Safety, Activity Modification, Education of Plan of Care Patient demonstrates compliance with HEP?: Yes Short Term Goals Goal #1: Pt independent and compliant with HEP and surgery precautions. Goal to be met by: 04/13/18 Progress towards Goal:: Met Goal #2: Left quad strength increased to 4+/5. Goal to be met by: 04/13/18 Progress towards Goal:: Progressing Goal #3: Left knee ROM 0-40 degrees. Goal to be met by: 04/13/18 Progress towards Goal:: Met Goal #4: . Prison Goals Goal #1: Pt knows HEP and to continue ex's to maintain functional level at D/c Goal to be met by: 06/21/18 Progress towards goal: Progressing Goal #2: Score on LE functional scale improved to 60/80. Goal to be met by: 06/21/18 Goal #3: Left knee AROM WFL's to perform all ADL's without difficulty. Goal to be met by: 06/21/18 Goal #4: Pt to amb. w/o assistive device, community distances without gait deviation Goal to be met by: 06/21/18 Plan Dates of Scenic Designer Goals: 06/21/18 Expiration date of current Insurance Approval:: pending PLAN: Cont. skilled PT per protocol,resulting in increased ROM and strength in the L LE.
--- NOTE | 2018-04-19 10:00 | RS.OPPTDN ---
Subjective Date of Note: 04/19/18 Visit #: 8 Number of visits approved by Insurance: pending Date of Evaluation: 03/23/18 Payer Source: Medicaid Treatment Diagnosis: Left knee pain, left knee joint effusion, s/p ACL and MCL reconstruction Current Subjective/complaints:: No c/o.Discussed with supervising PT about using moist heat to quads to enhance stretching .PT agrees with POC.Patient knows to also use ice as needed. *Precautions: Brace locked in full extension, TTWB. May unlock brace in sitting to 90 deg - Treatment Modality: Electrical Stim Unattended Parameters/Method Applied: 20 mins. IFC to L knee@ 14ma. Patient Position: Supine - Heat/Cryotherapy Treatment: Hot Pack (concurrent with e-stim.) Interventions - Exercise/Activities/Manual Therapy Exercises/Activities: 35 mins. ,multiple reps. of AP's with yellow t-band, Quad sets, and SLR's. Passive L heelcord stretches to neutral.Passive L knee flexion to 55 degrees on bolster,then 69 degrees in sitting ( open chain). Total minutes of Exercise: 35 Manual Therapy: NA Total minutes of Manual Therapy: 0 HOME EXERCISE PROGRAM: AP's, Quad sets, SLR's,passive heelcord stretches.HEP to be done WEARING BRACE per 's protocol. - Charges Timed Code Treatment Minutes: 35 Total Treatment Time: 55 Procedures billed for this date of service:: hp,e-stim ,ex 2 Assessment: Jamee continues to have less edema,less warmth,increased passive knee flexion .He reports tightness,but no sharp pain present.He is compliant to TTWB L LE ,and wears brace as directed. Patient Education: Education of diagnosis, Body/Joint mechanics, Home Exercise Program, Home Safety, Activity Modification, Education of Plan of Care Patient demonstrates compliance with HEP?: Yes Short Term Goals Goal #1: Pt independent and compliant with HEP and surgery precautions. Goal to be met by: 04/13/18 Progress towards Goal:: Met Goal #2: Left quad strength increased to 4+/5. Goal to be met by: 04/13/18 Progress towards Goal:: Progressing Goal #3: Left knee ROM 0-40 degrees. Goal to be met by: 04/13/18 Progress towards Goal:: Met Goal #4: . Detention Goals Goal #1: Pt knows HEP and to continue ex's to maintain functional level at D/c Goal to be met by: 06/21/18 Progress towards goal: Progressing Goal #2: Score on LE functional scale improved to 60/80. Goal to be met by: 06/21/18 Goal #3: Left knee AROM WFL's to perform all ADL's without difficulty. Goal to be met by: 06/21/18 Goal #4: Pt to amb. w/o assistive device, community distances without gait deviation Goal to be met by: 06/21/18 Plan Dates of Piano Sounding Board Matcher Goals: 06/21/18 Expiration date of current Insurance Approval:: pending PLAN: Cont. skilled PT to increase motion and strength in the L LE per protocol.
--- NOTE | 2018-04-24 09:31 | RS.OPPTDN ---
Subjective Date of Note: 04/24/18 Visit #: 9 Number of visits approved by Insurance: pending Date of Evaluation: 03/23/18 Payer Source: Medicaid Treatment Diagnosis: Left knee pain, left knee joint effusion, s/p ACL and MCL reconstruction Current Subjective/complaints:: Patient pleased with hs progress,continues to wear knee brace and is on crutches ,TTWB R LE. *Precautions: Brace locked in full extension, TTWB. May unlock brace in sitting to 90 deg Pain Assessment - Pain Description Pain Location: L Pain Description: Tightness, Dull, Aching Current Pain Intensity: 0 at rest Worst Pain Intensity: 5-6 at available end ROM - Heat/Cryotherapy Treatment: Hot Pack (20 ins. prior to exercises) Interventions - Exercise/Activities/Manual Therapy Exercises/Activities: 40 mins. ,multiple reps. of AP's , Quad sets, and SLR's. Passive L heelcord stretches to neutral.Passive L knee flexion to 55 degrees with heelslides,then 75 - 80 degrees in sitting ( open chain),after multiple prolonged static stretches. Total minutes of Exercise: 40 Manual Therapy: NA Total minutes of Manual Therapy: 0 HOME EXERCISE PROGRAM: AP's, Quad sets, SLR's,passive heelcord stretches.HEP to be done WEARING BRACE per 's protocol. - Charges Timed Code Treatment Minutes: 40 Total Treatment Time: 60 Procedures billed for this date of service:: hp, ex 3 Assessment: Progressing well,less warmth and less edema in L knee,increased knee flexion passively.The knee extension is WNL passively.He is highly motivated to improve ,compliant to protocol for PCL/MCL/ACL reconstruction. Patient Education: Education of diagnosis, Body/Joint mechanics, Home Exercise Program, Home Safety, Activity Modification, Education of Plan of Care Patient demonstrates compliance with HEP?: Yes Short Term Goals Goal #1: Pt independent and compliant with HEP and surgery precautions. Goal to be met by: 04/13/18 Progress towards Goal:: Met Goal #2: Left quad strength increased to 4+/5. Goal to be met by: 04/13/18 Progress towards Goal:: Progressing Goal #3: Left knee ROM 0-40 degrees. Goal to be met by: 04/13/18 Progress towards Goal:: Met Goal #4: . High School Assistant Football Coach Goals Goal #1: Pt knows HEP and to continue ex's to maintain functional level at D/c Goal to be met by: 06/21/18 Progress towards goal: Progressing Comments: Not allowed to do AROM at this time ,is 5 weeks post-op tomorrow. Goal #2: Score on LE functional scale improved to 60/80. Goal to be met by: 06/21/18 Goal #3: Left knee AROM WFL's to perform all ADL's without difficulty. Goal to be met by: 06/21/18 (N/A currently due to restrictions) Goal #4: Pt to amb. w/o assistive device, community distances without gait deviation Goal to be met by: 06/21/18 Plan Dates of High School Assistant Football Coach Goals: 06/21/18 Expiration date of current Insurance Approval:: pending PLAN: Cont . skilled PT to achieve maximum strength and knee motion as protocol allows.
--- NOTE | 2018-04-26 09:24 | RS.OPPTDN ---
Subjective Date of Note: 04/26/18 Visit #: 10 Number of visits approved by Insurance: pending Date of Evaluation: 03/23/18 Payer Source: Medicaid Treatment Diagnosis: Left knee pain, left knee joint effusion, s/p ACL and MCL reconstruction Current Subjective/complaints:: No c/o,patient continues to do exercises several times per day.He is compliant to TTWB L LE,and wearing knee brace as directed. *Precautions: Brace locked in full extension, TTWB. May unlock brace in sitting to 90 deg Pain Assessment - Pain Description Pain Location: L knee Pain Description: Tightness, Dull, Aching Current Pain Intensity: 0 at rest Worst Pain Intensity: increases with stretches to the quads - Heat/Cryotherapy Treatment: Hot Pack (20 mis. prior to exercises) Interventions - Exercise/Activities/Manual Therapy Exercises/Activities: 40 mins. ,multiple reps. of AP's , Quad sets, and SLR's. Passive L heelcord stretches to neutral.Passive L knee flexion to 63 degrees with heelslides,then 75 - 82 degrees in sitting ( open chain),after multiple prolonged static stretches. Total minutes of Exercise: 40 Manual Therapy: NA Total minutes of Manual Therapy: 0 HOME EXERCISE PROGRAM: AP's, Quad sets, SLR's,passive heelcord stretches.HEP to be done WEARING BRACE per 's protocol. - Charges Timed Code Treatment Minutes: 40 Total Treatment Time: 60 Procedures billed for this date of service:: hp,ex 3 Assessment: Patient continues to have increased knee flexion as the edema lessens .He is doing HEP as directed,compliant to knee brace and TTWB L LE status.The passive knee exension is WNL. Patient Education: Education of diagnosis, Body/Joint mechanics, Home Exercise Program, Home Safety, Activity Modification, Education of Plan of Care Patient demonstrates compliance with HEP?: Yes Short Term Goals Goal #1: Pt independent and compliant with HEP and surgery precautions. Goal to be met by: 04/13/18 Progress towards Goal:: Met Goal #2: Left quad strength increased to 4+/5. Goal to be met by: 04/13/18 Progress towards Goal:: Progressing Goal #3: Left knee ROM 0-40 degrees. Goal to be met by: 04/13/18 Progress towards Goal:: Met Goal #4: . Long-Term Goals Goal #1: Pt knows HEP and to continue ex's to maintain functional level at D/c Goal to be met by: 06/21/18 Progress towards goal: Progressing Goal #2: Score on LE functional scale improved to 60/80. Goal to be met by: 06/21/18 Goal #3: Left knee AROM WFL's to perform all ADL's without difficulty. Goal to be met by: 06/21/18 (N/A currently due to restrictions) Goal #4: Pt to amb. w/o assistive device, community distances without gait deviation Goal to be met by: 06/21/18 Plan Dates of Cardiothoracic Anesthesia Technician Goals: 06/21/18 Expiration date of current Insurance Approval:: pending PLAN: Cont. skilled PT per protocol,will progress exercises per protocol.
--- NOTE | 2018-05-03 09:37 | RS.OPPTDN ---
Subjective Date of Note: 05/03/18 Visit #: 11 Number of visits approved by Insurance: pending Date of Evaluation: 03/23/18 Payer Source: Medicaid Treatment Diagnosis: Left knee pain, left knee joint effusion, s/p ACL and MCL reconstruction Current Subjective/complaints:: Patient enters clinic without use of crutches today.He had follow-up appt. with Dr. Do earlier this week,orders to cont. therapy per protocol *Precautions: Brace locked in full extension, TTWB. May unlock brace in sitting to 90 deg Pain Assessment - Pain Description Pain Location: L knee Pain Description: Tightness, Dull, Aching, Chronic Current Pain Intensity: not rated Other Comments regarding Pain:: pain begins today @ 88 - 90 degrees flexion - Heat/Cryotherapy Treatment: Hot Pack (20 mins. prior to exercises) Interventions - Exercise/Activities/Manual Therapy Exercises/Activities: 40 mins. ,multiple reps. of AP's , Quad sets, and SLR's. Passive L heelcord stretches to neutral.Passive L knee flexion to 68 degrees with heelslides,then 82 - 88 degrees in sitting ( open chain),after multiple prolonged static stretches.Briefly @ 90 flexion ,but elicits pain. Total minutes of Exercise: 40 Manual Therapy: NA Total minutes of Manual Therapy: 0 HOME EXERCISE PROGRAM: AP's, Quad sets, SLR's,passive heelcord stretches.HEP to be done WEARING BRACE per 's protocol. - Charges Timed Code Treatment Minutes: 40 Total Treatment Time: 60 Procedures billed for this date of service:: hp,ex 3 Assessment: Patient progressing well,L LE continues to be less swollen ,has increased passive flexion .The extension passively is WNL.He is compliant to all recommednations. Patient Education: Education of diagnosis, Body/Joint mechanics, Home Exercise Program, Home Safety, Activity Modification, Education of Plan of Care Patient demonstrates compliance with HEP?: Yes Short Term Goals Goal #1: Pt independent and compliant with HEP and surgery precautions. Goal to be met by: 04/13/18 Progress towards Goal:: Met Goal #2: Left quad strength increased to 4+/5. Goal to be met by: 04/13/18 Progress towards Goal:: Progressing Goal #3: Left knee ROM 0-40 degrees. Goal to be met by: 04/13/18 Progress towards Goal:: Met Goal #4: . Detention Goals Goal #1: Pt knows HEP and to continue ex's to maintain functional level at D/c Goal to be met by: 06/21/18 Progress towards goal: Progressing Goal #2: Score on LE functional scale improved to 60/80. Goal to be met by: 06/21/18 Goal #3: Left knee AROM WFL's to perform all ADL's without difficulty. Goal to be met by: 06/21/18 Progress towards goal: Progressing Comments: OK to begin active flexion in open chain per protocol Goal #4: Pt to amb. w/o assistive device, community distances without gait deviation Goal to be met by: 06/21/18 Progress towards goal: Progressing Plan Dates of Director Supply Goals: 06/21/18 Expiration date of current Insurance Approval:: pending PLAN: Cont skilled PT per protocol.
== END 2018-05-03 23:59 ==
PROVIDERS: ATTEND Orthopaedic Surgery Sports Medicine
DX: M25.462 Effusion, left knee (principal); M25.562 Pain in left knee; M25.662 Stiffness of left knee, not elsewhere classified; R26.9 Unspecified abnormalities of gait and mobility; Z98.890 Other specified postprocedural states

== ENCOUNTER 2018-05-29 08:00 | Outpatient (RCR) ==
--- NOTE | 2018-05-08 09:25 | RS.OPPTDN ---
Subjective Date of Note: 05/08/18 Visit #: 12 Number of visits approved by Insurance: pending Date of Evaluation: 03/23/18 Payer Source: Medicaid Treatment Diagnosis: Left knee pain, left knee joint effusion, s/p ACL and MCL reconstruction Current Subjective/complaints:: Reports increased L knee stiffness due to cold weather,but no pain present. *Precautions: Brace locked in full extension, TTWB. May unlock brace in sitting to 90 deg Pain Assessment - Pain Description Pain Location: L knee Pain Description: Tightness Current Pain Intensity: 0 - Heat/Cryotherapy Treatment: Hot Pack (20 mins. prior to exercises) Interventions - Exercise/Activities/Manual Therapy Exercises/Activities: 40 mins. total,beginning with passive heel cord stretches to 10 degrees dorsiflexed,3/15 ankle pumps.SLR's with 1.5 # and brace on ,4 sets of 25 reps.Seated knee flexion at rest is 65 - 70 degrees,passive stretches to 80 - 83 degrees.LAQ's from 80 flexed to -30 extension ,3/15. Total minutes of Exercise: 40 Manual Therapy: NA HOME EXERCISE PROGRAM: AP's, Quad sets, SLR's,passive heelcord stretches.HEP to be done WEARING BRACE per 's protocol. - Charges Timed Code Treatment Minutes: 40 Total Treatment Time: 60 Procedures billed for this date of service:: yomi,ex 3 Assessment: Patient has increased tightness in quads today,with less felxion as compared to last week.We did discuss for him to use moist heat to quads ,gentle massage to quads to assist increasing the knee flexion .The L patella at rest is higher than the R ,patient reports Dr. Do is aware of this,and it paula affect the mechanics of the knee.The patellar mobility is improving .Wolf continues to be highly motivated to improve ,is compliant to all recommendations. Patient Education: Education of diagnosis, Body/Joint mechanics, Home Exercise Program, Home Safety, Activity Modification, Education of Plan of Care Patient demonstrates compliance with HEP?: Yes Short Term Goals Goal #1: Pt independent and compliant with HEP and surgery precautions. Goal to be met by: 04/13/18 Progress towards Goal:: Met Goal #2: Left quad strength increased to 4+/5. Goal to be met by: 04/13/18 Progress towards Goal:: Progressing Goal #3: Left knee ROM 0-40 degrees. Goal to be met by: 04/13/18 Progress towards Goal:: Met Goal #4: . Java Grails Developer Goals Goal #1: Pt knows HEP and to continue ex's to maintain functional level at D/C Goal to be met by: 06/21/18 Progress towards goal: Met Goal #2: Score on LE functional scale improved to 60/80. Goal to be met by: 06/21/18 Goal #3: Left knee AROM WFL's to perform all ADL's without difficulty. Goal to be met by: 06/21/18 Progress towards goal: Progressing Goal #4: Pt to amb. w/o assistive device, community distances without gait deviation Goal to be met by: 06/21/18 Progress towards goal: Progressing Plan Dates of Java Grails Developer Goals: 06/21/18 Expiration date of current Insurance Approval:: pending PLAN: Cont. skilled PT to achieve maximum motion and strength in the L LE ,per protocol.
--- NOTE | 2018-05-10 09:23 | RS.OPPTDN ---
Subjective Date of Note: 05/10/18 Visit #: 13 Number of visits approved by Insurance: pending Date of Evaluation: 03/23/18 Payer Source: Medicaid Treatment Diagnosis: Left knee pain, left knee joint effusion, s/p ACL and MCL reconstruction Current Subjective/complaints:: Patient reports slight increased swelling yesterday in the L knee,but no increased pain .He is compliant to wearing the L knee brace as directed. *Precautions: Brace locked in full extension, TTWB. May unlock brace in sitting to 90 deg Pain Assessment - Pain Description Pain Location: L knee Pain Description: Tightness - Heat/Cryotherapy Treatment: Hot Pack (20 mins. prior to exercises) Interventions - Exercise/Activities/Manual Therapy Exercises/Activities: 40 mins. total,beginning with passive heel cord stretches to 10 degrees dorsiflexed,4/25 SLR's with 2 # and brace on ,multiple reps. of AAROM heelslides,then seated LAQ's and hamstring curls.Supervising present to measure ROM ,passively and actively. Total minutes of Exercise: 40 Manual Therapy: NA Total minutes of Manual Therapy: 0 HOME EXERCISE PROGRAM: AP's, Quad sets, SLR's,passive heelcord stretches.HEP to be done WEARING BRACE per 's protocol. - Charges Timed Code Treatment Minutes: 40 Total Treatment Time: 60 Procedures billed for this date of service:: yomi,ex 3 Assessment: Patient progressing ,has increased strength in quads and now is allowed to begin active hamstyring curls.He is 7 weeks post-op,but is allowed to ambulate with brace on , locked in full extension ,no use of crutches.He needs cues to not walk with the L LE externally rotated.The L ankle dorsiflexion is improving . Patient Education: Education of diagnosis, Body/Joint mechanics, Home Exercise Program, Home Safety, Activity Modification, Education of Plan of Care Patient demonstrates compliance with HEP?: Yes Short Term Goals Goal #1: Pt independent and compliant with HEP and surgery precautions. Goal to be met by: 04/13/18 Progress towards Goal:: Met Goal #2: Left quad strength increased to 4+/5. Goal to be met by: 04/13/18 Progress towards Goal:: Progressing Goal #3: Left knee ROM 0-40 degrees. Goal to be met by: 04/13/18 Progress towards Goal:: Met Goal #4: . Goal to be met by: 11/15/17 Help Desk Support Goals Goal #1: Pt knows HEP and to continue ex's to maintain functional level at D/C Goal to be met by: 06/21/18 Progress towards goal: Met Goal #2: Score on LE functional scale improved to 60/80. Goal to be met by: 06/21/18 Goal #3: Left knee AROM WFL's to perform all ADL's without difficulty. Goal to be met by: 06/21/18 Progress towards goal: Progressing Goal #4: Pt to amb. w/o assistive device, community distances without gait deviation Goal to be met by: 06/21/18 Progress towards goal: Progressing (antalgic gait with L hip /LE externally rotated) Plan Dates of Help Desk Support Goals: 06/21/18 Expiration date of current Insurance Approval:: pending PLAN: Cont. skilled PT per protocol for ACL/MCL/PCL surgery.
--- NOTE | 2018-05-15 09:13 | RS.OPPTDN ---
Subjective Date of Note: 05/15/18 Visit #: 14 Number of visits approved by Insurance: pending Date of Evaluation: 03/23/18 Payer Source: Medicaid Treatment Diagnosis: Left knee pain, left knee joint effusion, s/p ACL and MCL reconstruction Current Subjective/complaints:: No c/o,enters clinic this AM with less antalgic gait ,reports taking a hot shower and using heating pad to L quads earlier this AM.He is complian to wearing knee brace per protocol. *Precautions: Brace locked in full extension, TTWB. May unlock brace in sitting to 90 deg Pain Assessment - Pain Description Pain Location: L knee Pain Description: Tightness Other Comments regarding Pain:: no pain currently - Heat/Cryotherapy Treatment: Hot Pack (20 mins. prior to exercises) Interventions - Exercise/Activities/Manual Therapy Exercises/Activities: 40 mins. total,beginning with passive heel cord stretches to 10 degrees dorsiflexed,4/25 SLR's with 3 # and brace on ,multiple reps. of AAROM heelslides,then seated LAQ's and hamstring curls.Passive flexion to 90 , active flex to 80.Passive extension is -4,active -10. Total minutes of Exercise: 40 Manual Therapy: NA Total minutes of Manual Therapy: 0 HOME EXERCISE PROGRAM: AP's, Quad sets, SLR's,passive heelcord stretches.HEP to be done WEARING BRACE per 's protocol. - Charges Timed Code Treatment Minutes: 40 Total Treatment Time: 60 Procedures billed for this date of service:: hp,ex 3 Assessment: Patient has increased quad strength .The L patella appears to rest higher than the R ,possibly interfering with the active knee flexion.Patient reports yasmeen Do is aware of this .The L ankl dorsiflexion is improving passively and actively. Patient Education: Education of diagnosis, Body/Joint mechanics, Home Exercise Program, Home Safety, Activity Modification, Education of Plan of Care Patient demonstrates compliance with HEP?: Yes Short Term Goals Goal #1: Pt independent and compliant with HEP and surgery precautions. Goal to be met by: 04/13/18 Progress towards Goal:: Met Goal #2: Left quad strength increased to 4+/5. Goal to be met by: 04/13/18 Progress towards Goal:: Progressing Goal #3: Left knee PROM flexion to 95 degees. Goal to be met by: 06/04/18 (Revised ) Progress towards Goal:: Progressing Goal #4: Left knee active extension to -5 degrees. Goal to be met by: 06/04/18 Progress towards Goal:: Progressing Asbestos Abatement Worker Goals Goal #1: Pt knows HEP and to continue ex's to maintain functional level at D/C Goal to be met by: 06/21/18 Progress towards goal: Met Goal #2: Score on LE functional scale improved to 70/80. Goal to be met by: 06/21/18 (Revised) Goal #3: Left knee AROM WFL's to perform all ADL's without difficulty. Goal to be met by: 06/21/18 Progress towards goal: Progressing Goal #4: Pt to amb. w/o assistive device, community distances without gait deviation Goal to be met by: 06/21/18 Progress towards goal: Progressing Plan Dates of [facility] Goals: 06/21/18 Expiration date of current Insurance Approval:: pending PLAN: Cont. skilled PT ,progress as protocol allows.Patient will be 8 weeks post -op tomorrow.
--- NOTE | 2018-05-17 10:55 | RS.OPPTDN ---
Subjective Date of Note: 05/17/18 Visit #: 15 Number of visits approved by Insurance: na Date of Evaluation: 03/23/18 Payer Source: Medicaid Treatment Diagnosis: Left knee pain, left knee joint effusion, s/p ACL and MCL reconstruction Current Subjective/complaints:: No report of knee pain currently ,just tightness with bending the knee. *Precautions: No weight bearing with knee in flexed position,keep brace locked in ext. - Heat/Cryotherapy Treatment: Hot Pack (20 mins. prior to exercises) Interventions - Exercise/Activities/Manual Therapy Exercises/Activities: Began on leg press with prolonged static stretch to the L heel cord,then bilateral leg press from 45 # ,progressed in 15 # increments to 105 #.Single leg press @ 45 #,multiple reps of each.Knee brace @ 0 degrees to 70 degrees while on leg press ( per protocol ).Supine SLR's with 3 # ,4/25 reps.Active L knee flexion to 80 ,passive 90-95.LAQ's and active hamstring curls from 80 flexion to full extension today. Total minutes of Exercise: 40 Manual Therapy: NA Total minutes of Manual Therapy: 0 HOME EXERCISE PROGRAM: AP's, Quad sets, SLR's,passive heelcord stretches.HEP to be done WEARING BRACE per 's protocol. - Objective Findings Observations,measurements,etc.: PROM is full extension ,flexion 90-95 today. AROM is -5 extension,80 flexion. - Charges Timed Code Treatment Minutes: 40 Total Treatment Time: 60 Procedures billed for this date of service:: hp,ex 3 Assessment: Patient has improved passive flexion today after multiple reps of stretches and resistive exercises in safe ROM per protocol.The quad/hamstring strength is improving.He is compliant to wearing brace as directed,no longerusing crutches.He does continue to externally rotate the L hip/LE with ambulation ,needs cues to correct this ,but less antalgic today. Patient Education: Education of diagnosis, Body/Joint mechanics, Home Exercise Program, Home Safety, Activity Modification, Education of Plan of Care Patient demonstrates compliance with HEP?: Yes Short Term Goals Goal #1: Pt independent and compliant with HEP and surgery precautions. Goal to be met by: 04/13/18 Progress towards Goal:: Met Goal #2: Left quad strength increased to 4+/5. Goal to be met by: 04/13/18 Progress towards Goal:: Progressing Goal #3: Left knee PROM flexion to 95 degees. Goal to be met by: 06/04/18 (Revised ) Progress towards Goal:: Progressing Comments:: achieved 95 ,but not yet consistent,elicits pain Goal #4: Left knee active extension to -5 degrees. Goal to be met by: 06/04/18 Progress towards Goal:: Partially Met (Able to achieve -5 , but not consistent at this time) [facility] Goals Goal #1: Pt knows HEP and to continue ex's to maintain functional level at D/C Goal to be met by: 06/21/18 Progress towards goal: Met Goal #2: Score on LE functional scale improved to 70/80. Goal to be met by: 06/21/18 (Revised) Progress towards goal: Progressing Goal #3: Left knee AROM WFL's to perform all ADL's without difficulty. Goal to be met by: 06/21/18 Progress towards goal: Progressing Goal #4: Pt to amb. w/o assistive device, community distances without gait deviation Goal to be met by: 06/21/18 Progress towards goal: Progressing Plan Dates of [facility] Goals: 06/21/18 Expiration date of current Insurance Approval:: pending PLAN: Cont. PT to increase ROM and strength in the L knee,improve gait pattern.
--- NOTE | 2018-05-21 10:10 | RS.PTSUM ---
Progress Note/Summary Date of Note: 05/08/18 Date of Evaluation: 03/23/18 Number of Visits: 12 Current Complaints/Gains: Wolf reports increased left knee stiffness with the cold weather. He is motivated to gain further ROM and strength. Objective Measurements/Presentation: Left knee active extension to -15 degrees, PROM to full extension. Active flexion 73-74 degrees. Passive flexion 86 degrees. All of these measurements in sitting. In supine with hip flexed, he actively passively gets to 90-91 degrees. The left patella does sit high on the knee joint.. G Codes: NA Source of G Code Score: NA - Short Term Goals Goal #1: Pt independent and compliant with HEP and surgery precautions. Goal to be met by: 04/13/18 Progress towards Goal:: Met Goal #2: Left quad strength increased to 4+/5. Goal to be met by: 04/13/18 Progress towards Goal:: Progressing Goal #3: Left knee PROM flexion to 95 degees. Goal to be met by: 06/04/18 (Revised ) Goal #4: Left knee active extension to -5 degrees. Goal to be met by: 06/04/18 - Detention Goals Goal #1: Pt knows HEP and to continue ex's to maintain functional level at D/C Goal to be met by: 06/21/18 Progress towards goal: Met Goal #2: Score on LE functional scale improved to 70/80. Goal to be met by: 06/21/18 (Revised) Goal #3: Left knee AROM WFL's to perform all ADL's without difficulty. Goal to be met by: 06/21/18 Progress towards goal: Progressing Goal #4: Pt to amb. w/o assistive device, community distances without gait deviation Goal to be met by: 06/21/18 Progress towards goal: Progressing - Assessment Assessment of Improvement/Progress: Wolf has made progress with his ROM. He is progressing while following the surgeon's protocol. He continues to need skilled therapy to help him gain functional AROM and strength. Summary: Patient has made progress towards goals., Patient demonstrates potential to gain increased function with therapy, Maximum potential has yet to be attained. - Plan Plan: Continue Plan of Care Frequency: 2 X week Duration: 4 weeks Dates of Detention Goals: 06/21/18 Expiration date of current Insurance Approval:: pending
--- NOTE | 2018-05-24 08:59 | RS.OPPTDN ---
Subjective Date of Note: 05/22/18 Visit #: 16 Number of visits approved by Insurance: pending Date of Evaluation: 03/23/18 Payer Source: Medicaid Treatment Diagnosis: Left knee pain, left knee joint effusion, s/p ACL and MCL reconstruction Current Subjective/complaints:: Reports doing exercises frequently ,walking alot also.He is concerned about the flexion ,but no issues with strengthening.He is compliant to HEP and protocol .He will be 9 weeks post-op tomorow. *Precautions: No weight bearing with knee in flexed position,keep brace locked in ext. Pain Assessment - Pain Description Pain Location: L knee. Pain Description: Tightness - Heat/Cryotherapy Treatment: Hot Pack (20 mins. prior to ex.) Interventions - Exercise/Activities/Manual Therapy Exercises/Activities: Began on leg press with prolonged static stretch to the L heel cord,then bilateral leg press @ 105 #.Single leg press @ 45 to 90 #, multiple reps of each.Knee brace @ 0 degrees to 70 degrees while on leg press ( per protocol ).Supine SLR's with 4 # ,4/25 reps.Active L knee flexion to 85 , passive 90-97.LAQ's and active hamstring curls from 80 flexion to full extension today. Total minutes of Exercise: 40 Manual Therapy: NA Total minutes of Manual Therapy: 0 HOME EXERCISE PROGRAM: AP's, Quad sets, SLR's,passive heelcord stretches.HEP to be done WEARING BRACE per 's protocol. - Charges Timed Code Treatment Minutes: 40 Total Treatment Time: 60 Procedures billed for this date of service:: hp,ex 3 Assessment: Patient continues to have a hard end feel for flexion ,with pain elevated with flexion past 90 - 95 degrees.The L patella is positioned superiorly at rest ,compared to the R patella.We discussed to continue strengthening exercises,and he is to see Dr. Do next month.Patient plans to discuss the patellar issue ,and this LAWN MOWER SHARPENER will discuss this also with supervising PT. Patient Education: Education of diagnosis, Body/Joint mechanics, Home Exercise Program, Home Safety, Activity Modification, Education of Plan of Care Patient demonstrates compliance with HEP?: Yes Short Term Goals Goal #1: Pt independent and compliant with HEP and surgery precautions. Goal to be met by: 04/13/18 Progress towards Goal:: Met Goal #2: Left quad strength increased to 4+/5. Goal to be met by: 04/13/18 Progress towards Goal:: Progressing Goal #3: Left knee PROM flexion to 95 degees. Goal to be met by: 06/04/18 Comments:: 95 ,but painful ,hard end feel present Goal #4: Left knee active extension to -5 degrees. Goal to be met by: 06/04/18 Progress towards Goal:: Progressing Director Clinical Information Services Goals Goal #1: Pt knows HEP and to continue ex's to maintain functional level at D/C Goal to be met by: 06/21/18 Progress towards goal: Met Goal #2: Score on LE functional scale improved to 70/80. Goal to be met by: 06/21/18 (Revised) Goal #3: Left knee AROM WFL's to perform all ADL's without difficulty. Goal to be met by: 06/21/18 Progress towards goal: Progressing Goal #4: Pt to amb. w/o assistive device, community distances without gait deviation Goal to be met by: 06/21/18 Progress towards goal: Progressing Plan Dates of Director Clinical Information Services Goals: 06/21/18 Expiration date of current Insurance Approval:: pending PLAN: Cont. skilled PT to strengthen the L LE and increase motion for normal gait pattern.
--- NOTE | 2018-05-24 09:09 | RS.OPPTDN ---
Subjective Date of Note: 05/24/18 Visit #: 17 Number of visits approved by Insurance: pending Date of Evaluation: 03/23/18 Payer Source: Medicaid Treatment Diagnosis: Left knee pain, left knee joint effusion, s/p ACL and MCL reconstruction Current Subjective/complaints:: Patient walking and doing exercises as instructed,compliant to wearing the knee brace.He reports he is trying to flex the knee more ,but still has pain past 90 degrees. *Precautions: No weight bearing with knee in flexed position,keep brace locked in ext. Pain Assessment - Pain Description Current Pain Intensity: 0 at rest or walking Other Comments regarding Pain:: pain present attempting to flex the knee past 90 - Heat/Cryotherapy Treatment: Hot Pack (20 mis. to quads and calf) Interventions - Exercise/Activities/Manual Therapy Exercises/Activities: 30 mins. prolonged L heelcord stretches ,and stretching to quads .Active flexion to 85 ,passive 90-93 ( elicits pain ). Total minutes of Exercise: 30 Manual Therapy: NA Total minutes of Manual Therapy: 0 HOME EXERCISE PROGRAM: AP's, Quad sets, SLR's,passive heelcord stretches.HEP to be done WEARING BRACE per Dr's protocol. - Charges Timed Code Treatment Minutes: 30 Total Treatment Time: 50 Procedures billed for this date of service:: hp,ex 2 Assessment: Patient continues to have hard end feel for flexion ,pain ful past 90 degrees.He is compliant to all other exercises and precautions per the protocol.We discussed the POC,will contact Dr. Do's office regarding the limited flexion. Patient Education: Education of Plan of Care Patient demonstrates compliance with HEP?: Yes Short Term Goals Goal #1: Pt independent and compliant with HEP and surgery precautions. Goal to be met by: 04/13/18 Progress towards Goal:: Met Goal #2: Left quad strength increased to 4+/5. Goal to be met by: 04/13/18 Progress towards Goal:: Progressing Goal #3: Left knee PROM flexion to 95 degees. Goal to be met by: 06/04/18 (90-93) Progress towards Goal:: No Change Comments:: painful Goal #4: Left knee active extension to -5 degrees. Goal to be met by: 06/04/18 Progress towards Goal:: Progressing Intermediate Goals Goal #1: Pt knows HEP and to continue ex's to maintain functional level at D/C Goal to be met by: 06/21/18 Progress towards goal: Met Goal #2: Score on LE functional scale improved to 70/80. Goal to be met by: 06/21/18 (Revised) Goal #3: Left knee AROM WFL's to perform all ADL's without difficulty. Goal to be met by: 06/21/18 Progress towards goal: No Change Goal #4: Pt to amb. w/o assistive device, community distances without gait deviation Goal to be met by: 06/21/18 Progress towards goal: Progressing Plan Dates of Snath Handle Assembler Goals: 06/21/18 Expiration date of current Insurance Approval:: pending PLAN: Left message with Dr. Do's office regarding the limited knee flexion.Will treat as recommended or possibly hold the PT if no change next week.
--- NOTE | 2018-05-29 09:07 | RS.OPPTDN ---
Subjective Date of Note: 05/29/18 Visit #: 18 Number of visits approved by Insurance: pending Date of Evaluation: 03/23/18 Payer Source: Medicaid Treatment Diagnosis: Left knee pain, left knee joint effusion, s/p ACL and MCL reconstruction Current Subjective/complaints:: Patient reports the flexion feels the same .Supervising PT present with this MARINE OPERATIONS COORDINATOR and will discuss the POC. *Precautions: No weight bearing with knee in flexed position,keep brace locked in ext. Pain Assessment - Pain Description Pain Location: L knee when present Pain Description: Tightness, Chronic Current Pain Intensity: 0 at rest - Heat/Cryotherapy Treatment: Hot Pack (20 mins. prior to exercises) Interventions - Exercise/Activities/Manual Therapy Exercises/Activities: 20 mins. stretching to quads ,assessed by supervising PT.Knee flexion 85 to 90 degrees.Extension is WNL. Total minutes of Exercise: 20 Manual Therapy: NA Total minutes of Manual Therapy: 0 HOME EXERCISE PROGRAM: AP's, Quad sets, SLR's,passive heelcord stretches.HEP to be done WEARING BRACE per Dr's protocol. - Charges Timed Code Treatment Minutes: 20 Total Treatment Time: 40 Procedures billed for this date of service:: hp,ex 2 Assessment: Patient continues to have firm end feel present for flexion , elicits sharp pain if flexion is past 90 degrees.He is doing all exercises recommended by the protocol.He is aware of holding the PT until assessed by Dr. Do. Patient Education: Education of Plan of Care Patient demonstrates compliance with HEP?: Yes Short Term Goals Goal #1: Pt independent and compliant with HEP and surgery precautions. Goal to be met by: 04/13/18 Progress towards Goal:: Met Goal #2: Left quad strength increased to 4+/5. Goal to be met by: 04/13/18 Progress towards Goal:: Progressing Goal #3: Left knee PROM flexion to 95 degees. Goal to be met by: 06/04/18 (90-93) Progress towards Goal:: No Change Goal #4: Left knee active extension to -5 degrees. Goal to be met by: 06/04/18 Progress towards Goal:: Met Customer Experience Manager Goals Goal #1: Pt knows HEP and to continue ex's to maintain functional level at D/C Goal to be met by: 06/21/18 Progress towards goal: Met Goal #2: Score on LE functional scale improved to 70/80. Goal to be met by: 06/21/18 (Revised) Progress towards goal: No Change Goal #3: Left knee AROM WFL's to perform all ADL's without difficulty. Goal to be met by: 06/21/18 Progress towards goal: No Change Goal #4: Pt to amb. w/o assistive device, community distances without gait deviation Goal to be met by: 06/21/18 Progress towards goal: Progressing Plan Dates of Customer Experience Manager Goals: 06/21/18 Expiration date of current Insurance Approval:: pending PLAN: Hold PT until assessed by Dr. Do.
== END 2018-06-03 23:59 ==
PROVIDERS: ATTEND Orthopaedic Surgery Sports Medicine
DX: M25.562 Pain in left knee (principal); M25.462 Effusion, left knee; M25.662 Stiffness of left knee, not elsewhere classified; R26.9 Unspecified abnormalities of gait and mobility; Z98.890 Other specified postprocedural states

== ENCOUNTER 2018-07-02 08:00 | Outpatient (RCR) ==
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
--- NOTE | 2018-06-22 09:25 | RS.OTDNOTE ---
Subjective Date of Note: 06/22/18 Visit #: 2 Number of visits approved by Insurance: 6 Date of Evaluation: 06/13/18 Payer Source: Medicaid Treatment Diagnosis: Right elbow fracture *Precautions: No weight bearing to the RUE for 2 weeks. Current Complaints/Gains: Pt states good compliance with CP application. States he has mowed, weed-eated, and utilized a chain saw since his newest surgery. Pt advised of WB precautions. Pt returns to MD next Monday for follow -up and returns to therapy on . Pt makes grimacing facial expressions at end range of elbow flexion and extension; rates pain at 7/10. Pain Assessment - Pain Description Pain Description: Tightness, Sharp, Throbbing, Aching, Acute Pain Location: Right Elbow Pain Description: aches, sharp with elbow flexion Current Pain Intensity: 3-4 Worst Pain Intensity: 7 Modalities - Treatment Modality: Ultrasound Parameters/Method Applied: Pulsed at 50%, .5w/cm2 x 10 mins Patient Position: Sitting - Hot Pack/Cryotherapy Treatment: Hot Pack Comments:: x 15 mins prior to MT. Interventions - Exercise/Activities Exercise/Activities/Manual Therapy: Pt positioned in elevated dorsal extension for MT and gentle stretching of elbow flexion/extension with hand pro/ supination and wrist flexion/extension. Total tx time of 35+ mins of manual therapy. HOME EXERCISE PROGRAM: Progressive stretching of the RUE Elbow. Weight bearing to the RUE hand to increase elbow extension Ice to elbow. - Objective Findings Objective Findings:: Pt has increased pronation and 85% supination of RUE. Pain in the RUE elbow. GS at 40# and 38# this date. - Charges Timed Code Treatment Minutes: 46 Total Treatment Time: 61 Procedures billed for this date of service:: [facility] MT2 Assessment Patient Education: Education of diagnosis, Body/Joint mechanics, Home Exercise Program, Home Safety, Activity Modification, Education of Plan of Care Patient demonstrates compliance with HEP?: Yes Short Term Goals Goal #1: Pt to increase his RUE elbow ext. to -10 deg. Goal to be met by: 07/04/18 Progress towards goal: Progressing Goal #2: Pt to increase his RUE chicken catcher to 60 Goal to be met by: 07/04/18 (40# 38#) Progress towards goal: Progressing Goal #3: Pt to increase RUE wrist ext. to 60 deg. to increase wt. brg on RUE arm. Goal to be met by: 07/04/18 (0 WB at this time) Progress towards goal: Progressing Goal #4: Pt to increase RUE elbow flexion to 100 deg to increase combing his hair. Goal to be met by: 07/04/18 Progress towards goal: Progressing [facility] Goals Goal #1: Pt to increase his RUE elbow ext. to -5 deg. Goal to be met by: 07/30/18 Progress towards goal: Progressing Goal #2: Pt to increase his RUE chicken catcher to 85# Goal to be met by: 07/30/18 Progress towards goal: Progressing Goal #3: Pt to increase RUE wrist ext. to 65 deg. to increase wt. brg on RUE arm. Goal to be met by: 07/30/18 Progress towards goal: Progressing Goal #4: Pt to increase RUE elbow flexion to 145 deg to increase combing his hair. Goal to be met by: 07/30/18 Progress towards goal: Progressing Plan Dates of Campus Wellness Coordinator Goals: 07/30/18 Expiration date of current Insurance Approval:: 07/30/18 PLAN: Continue tx x4 sessions to max functional UE AROM/strength
--- NOTE | 2018-06-26 11:19 | RS.OTDNOTE ---
Subjective Date of Note: 06/26/18 Visit #: 3 Number of visits approved by Insurance: 6 Date of Evaluation: 06/13/18 Payer Source: Medicaid Treatment Diagnosis: Right elbow fracture *Precautions: No weight bearing to the RUE for 2 weeks. Current Complaints/Gains: Pt states he returned to MD and all precautions are removed. States he plans to return to the gym. States MD discussed add'l surgery on his elbow but informed pt he could loose increased mobility. Pain Assessment - Pain Description Pain Description: Tightness, Sharp, Throbbing, Aching, Acute Pain Location: Right Elbow Pain Description: aches, sharp with elbow flexion Modalities - Treatment Modality: Ultrasound Parameters/Method Applied: Pulsed US at .5w/cm2 x 12 mins performed Patient Position: Sitting - Hot Pack/Cryotherapy Treatment: Hot Pack, Cryotherapy Comments:: HP prior to MT with CP applied following tx Interventions - Exercise/Activities Exercise/Activities/Manual Therapy: Pt positioned in elevated dorsal extension for MT and gentle stretching of elbow flexion/extension with hand pro/ supination and wrist flexion/extension. Total tx time of 40+ mins of manual therapy including gentle prolonged stretching, retrograde massage, use of suction cups/cupping for blood flow increase and deep tissue massage for scar carla HOME EXERCISE PROGRAM: Progressive stretching of the RUE Elbow. Weight bearing to the RUE hand to increase elbow extension Ice to elbow. - Objective Findings Objective Findings:: Pt has increased pronation and 85% supination of RUE. - Charges Timed Code Treatment Minutes: 62 Total Treatment Time: 68 Procedures billed for this date of service:: [facility] MT2 Assessment Patient Education: Education of diagnosis, Body/Joint mechanics, Home Exercise Program, Home Safety, Activity Modification, Education of Plan of Care Patient demonstrates compliance with HEP?: Yes Short Term Goals Goal #1: Pt to increase his RUE elbow ext. to -10 deg. Goal to be met by: 07/04/18 Progress towards goal: Progressing Goal #2: Pt to increase his RUE pass worker to 60 Goal to be met by: 07/04/18 (40# 38#) Progress towards goal: Progressing Goal #3: Pt to increase RUE wrist ext. to 60 deg. to increase wt. brg on RUE arm. Goal to be met by: 07/04/18 (0 WB at this time) Progress towards goal: Progressing Goal #4: Pt to increase RUE elbow flexion to 100 deg to increase combing his hair. Goal to be met by: 07/04/18 Progress towards goal: Progressing Human Resources Compliance Manager Goals Goal #1: Pt to increase his RUE elbow ext. to -5 deg. Goal to be met by: 07/30/18 Progress towards goal: Progressing Goal #2: Pt to increase his RUE pass worker to 85# Goal to be met by: 07/30/18 Progress towards goal: Progressing Goal #3: Pt to increase RUE wrist ext. to 65 deg. to increase wt. brg on RUE arm. Goal to be met by: 07/30/18 Progress towards goal: Progressing Goal #4: Pt to increase RUE elbow flexion to 145 deg to increase combing his hair. Goal to be met by: 07/30/18 Progress towards goal: Progressing Plan Dates of Human Resources Compliance Manager Goals: 07/30/18 Expiration date of current Insurance Approval:: 07/30/18 PLAN: Continue per POC to max functional UE strength/AROM with decreased c/o pain.
--- NOTE | 2018-06-29 08:24 | RS.OTDNOTE ---
Subjective Date of Note: 06/28/18 Visit #: 4 Number of visits approved by Insurance: 6 Date of Evaluation: 06/13/18 Payer Source: Medicaid Treatment Diagnosis: Right elbow fracture *Precautions: No weight bearing to the RUE for 2 weeks. Current Complaints/Gains: Pt states he has been working his arm, trying to get it to straighten and bend. States "it's just stuck." Pain Assessment - Pain Description Pain Description: Tightness, Sharp, Throbbing, Aching, Acute Pain Location: Right Elbow Pain Description: aches, sharp with elbow flexion Current Pain Intensity: 2-3 Worst Pain Intensity: 8 Modalities - Treatment Modality: Electrical Stim Unattended Parameters/Method Applied: Hi-volt, small pads to pt tolerance Patient Position: Sitting - Hot Pack/Cryotherapy Treatment: Cryotherapy Comments:: CP following stretching ex's. Interventions - Exercise/Activities Exercise/Activities/Manual Therapy: Pt positioned in elevated dorsal extension for MT and gentle stretching of elbow flexion/extension with hand pro/ supination and wrist flexion/extension. Total tx time of 40+ mins of manual therapy including gentle prolonged stretching, retrograde massage, use of suction cups/cupping for blood flow increase and deep tissue massage for scar carla HOME EXERCISE PROGRAM: Progressive stretching of the RUE Elbow. Weight bearing to the RUE hand to increase elbow extension Ice to elbow. - Objective Findings Objective Findings:: Pt has increased pronation and 85-90% supination of RUE. - Charges Timed Code Treatment Minutes: 32 Total Treatment Time: 58 Procedures billed for this date of service:: MT CP ESTIM Assessment Patient Education: Education of diagnosis, Body/Joint mechanics, Home Exercise Program, Home Safety, Activity Modification, Education of Plan of Care Patient demonstrates compliance with HEP?: Yes Short Term Goals Goal #1: Pt to increase his RUE elbow ext. to -10 deg. Goal to be met by: 07/04/18 Progress towards goal: Progressing Goal #2: Pt to increase his RUE bander and cellophaner helper machine to 60 Goal to be met by: 07/04/18 (40# 42#) Progress towards goal: Progressing Goal #3: Pt to increase RUE wrist ext. to 60 deg. to increase wt. brg on RUE arm. Goal to be met by: 07/04/18 (0 WB at this time) Progress towards goal: Progressing Goal #4: Pt to increase RUE elbow flexion to 100 deg to increase combing his hair. Goal to be met by: 07/04/18 Progress towards goal: Progressing Tobacco Prevention Health Educator Goals Goal #1: Pt to increase his RUE elbow ext. to -5 deg. Goal to be met by: 07/30/18 Progress towards goal: Progressing Goal #2: Pt to increase his RUE bander and cellophaner helper machine to 85# Goal to be met by: 07/30/18 Progress towards goal: Progressing Goal #3: Pt to increase RUE wrist ext. to 65 deg. to increase wt. brg on RUE arm. Goal to be met by: 07/30/18 Progress towards goal: Progressing Goal #4: Pt to increase RUE elbow flexion to 145 deg to increase combing his hair. Goal to be met by: 07/30/18 Progress towards goal: Progressing Plan Dates of Tobacco Prevention Health Educator Goals: 07/30/18 Expiration date of current Insurance Approval:: 07/30/18 PLAN: Pt has x2 approved visits left next wk.
--- NOTE | 2018-07-02 11:02 | RS.OTDNOTE ---
Subjective Date of Note: 07/02/18 Visit #: 4 Number of visits approved by Insurance: 6 Date of Evaluation: 06/13/18 Payer Source: Medicaid Treatment Diagnosis: Right elbow fracture *Precautions: NA Current Complaints/Gains: Pt states he continues to work out his arm. States good understanding of progressive stretching techs's/education. States he is unable to hold onto a pool stick still 2* decreased reinsurance accountant strength is wanting to modify his pool stick with grooves. Pain Assessment - Pain Description Pain Description: Tightness, Sharp, Throbbing, Aching, Acute Pain Location: Right Elbow Pain Description: aches, sharp with elbow flexion Current Pain Intensity: 3 Worst Pain Intensity: 7-8 Modalities - Treatment Modality: Ultrasound Parameters/Method Applied: .05w/cm2 x12 mins Treatment Area: anterior elbow Patient Position: Sitting - Hot Pack/Cryotherapy Treatment: Hot Pack, Cryotherapy Interventions - Exercise/Activities Exercise/Activities/Manual Therapy: Pt positioned in elevated dorsal extension for MT and gentle stretching of elbow flexion/extension with hand pro/ supination and wrist flexion/extension. Total tx time of 40+ mins of manual therapy including gentle prolonged stretching, retrograde massage, use of suction cups/cupping for blood flow increase and deep tissue massage for scar carla along with x 6mins of static stretching into elbow flexion with aide of gait belt. HOME EXERCISE PROGRAM: Progressive stretching of the RUE Elbow. Weight bearing to the RUE hand to increase elbow extension Ice to elbow. - Objective Findings Objective Findings:: Pt has increased pronation and 85-90% supination of RUE. - Charges Timed Code Treatment Minutes: 52 Total Treatment Time: 65 Procedures billed for this date of service:: [facility] MT2 Assessment Patient Education: Education of diagnosis, Body/Joint mechanics, Home Exercise Program, Home Safety, Activity Modification, Education of Plan of Care Patient demonstrates compliance with HEP?: Yes Short Term Goals Goal #1: Pt to increase his RUE elbow ext. to -10 deg. Goal to be met by: 07/04/18 Progress towards goal: Progressing Goal #2: Pt to increase his RUE reinsurance accountant to 60 Goal to be met by: 07/04/18 (40# 42#) Progress towards goal: Progressing Goal #3: Pt to increase RUE wrist ext. to 60 deg. to increase wt. brg on RUE arm. Goal to be met by: 07/04/18 (0 WB at this time) Progress towards goal: Progressing Goal #4: Pt to increase RUE elbow flexion to 100 deg to increase combing his hair. Goal to be met by: 07/04/18 (94*) Progress towards goal: Progressing Senior Living Goals Goal #1: Pt to increase his RUE elbow ext. to -5 deg. Goal to be met by: 07/30/18 Progress towards goal: Progressing Goal #2: Pt to increase his RUE reinsurance accountant to 85# Goal to be met by: 07/30/18 Progress towards goal: Progressing Goal #3: Pt to increase RUE wrist ext. to 65 deg. to increase wt. brg on RUE arm. Goal to be met by: 07/30/18 Progress towards goal: Progressing Goal #4: Pt to increase RUE elbow flexion to 145 deg to increase combing his hair. Goal to be met by: 07/30/18 Progress towards goal: Progressing Plan Dates of Unit Control Worker Goals: 07/30/18 Expiration date of current Insurance Approval:: 07/30/18 PLAN: Continue per POC to max functional elbow AROM
== END 2018-07-03 23:59 ==
PROVIDERS: ATTEND Orthopaedic Surgery Sports Medicine
DX: M25.621 Stiffness of right elbow, not elsewhere classified (principal); Z98.890 Other specified postprocedural states

== ENCOUNTER 2018-07-06 08:01 | Outpatient (RCR) ==
--- NOTE | 2018-07-06 09:44 | RS.OTDNOTE ---
Subjective Date of Note: 07/06/18 Visit #: 6 Number of visits approved by Insurance: 6 Date of Evaluation: 06/13/18 Payer Source: Medicaid Treatment Diagnosis: Right elbow fracture *Precautions: NA Current Complaints/Gains: Pt continues with c/o pain, rates 09/12 this date. States he continues to "work" on his arm and has c/o bicep pain at rest and trapezius/scapula pain/tenderness with palpation. Pain Assessment - Pain Description Pain Location: Right Elbow Pain Description: aches, sharp with elbow flexion Current Pain Intensity: 5-6 Worst Pain Intensity: 7 Other comments regarding pain:: Numbess/decreased c/o pain following ice massage. Modalities - Treatment Modality: Ultrasound Parameters/Method Applied: 1.5w/cm2 x 12 mins to bicep tendon Patient Position: Sitting - Hot Pack/Cryotherapy Treatment: Hot Pack, Cryotherapy Comments:: HP x 15 mins prior to MT with ice massage performed following tx. Interventions - Exercise/Activities Exercise/Activities/Manual Therapy: Pt positioned in elevated dorsal extension for MT and gentle stretching of elbow flexion/extension with hand pro/ supination and wrist flexion/extension. Total tx time of 40+ mins of manual therapy including gentle prolonged stretching and retrograde massage. Manual therapy/trigger point therapy to scapula/trapezius. Pt ed on continued HEP and importance of applying CP following TE. HOME EXERCISE PROGRAM: Progressive stretching of the RUE Elbow. Weight bearing to the RUE hand to increase elbow extension and Ice to elbow. - Objective Findings Objective Findings:: Pt has increased pronation and 85-90% supination of RUE. - Charges Timed Code Treatment Minutes: 54 Total Treatment Time: 68 Procedures billed for this date of service:: US MT2 Assessment Patient Education: Education of diagnosis, Body/Joint mechanics, Home Exercise Program, Home Safety, Activity Modification, Education of Plan of Care Patient demonstrates compliance with HEP?: Yes Short Term Goals Goal #1: Pt to increase his RUE elbow ext. to -10 deg. Goal to be met by: 07/04/18 Progress towards goal: Not Met Goal #2: Pt to increase his RUE laboratory asst to 60 Goal to be met by: 07/04/18 (40# 42#) Progress towards goal: Not Met Goal #3: Pt to increase RUE wrist ext. to 60 deg. to increase wt. brg on RUE arm. Goal to be met by: 07/04/18 Progress towards goal: Partially Met Comments: with stretching prior Goal #4: Pt to increase RUE elbow flexion to 100 deg to increase combing his hair. Goal to be met by: 07/04/18 (94*) Progress towards goal: Not Met Swimming Pool Servicer Goals Goal #1: Pt to increase his RUE elbow ext. to -5 deg. Goal to be met by: 07/30/18 Progress towards goal: Not Met Goal #2: Pt to increase his RUE laboratory asst to 85# Goal to be met by: 07/30/18 Progress towards goal: Not Met Goal #3: Pt to increase RUE wrist ext. to 65 deg. to increase wt. brg on RUE arm. Goal to be met by: 07/30/18 Progress towards goal: Not Met Goal #4: Pt to increase RUE elbow flexion to 145 deg to increase combing his hair. Goal to be met by: 07/30/18 Progress towards goal: Not Met Plan Dates of Swimming Pool Servicer Goals: 07/30/18 Expiration date of current Insurance Approval:: 07/30/18 PLAN: DC Comments: Pt was approved for x6 visits only with this order. Pt has been educated on HEP and use of HP/CP along with PRE's. Pt voices good understanding of HEP.
== END 2018-08-03 23:59 ==
PROVIDERS: ATTEND Orthopaedic Surgery Sports Medicine
DX: M25.621 Stiffness of right elbow, not elsewhere classified (principal); Z98.890 Other specified postprocedural states

== ENCOUNTER 2018-10-30 10:00 | Outpatient (RCR) ==
--- NOTE | 2018-10-05 09:17 | RS.OTCXNS ---
OT Case Note Date of Scheduled Appointment: 10/05/18 Type: Cancel (sick)
--- NOTE | 2018-10-08 09:13 | RS.OTDNOTE ---
Subjective Date of Note: 10/04/18 Visit #: 2 Number of visits approved by Insurance: Pending Date of Evaluation: 06/13/18 Payer Source: Medicaid Treatment Diagnosis: Right elbow fracture *Precautions: NA Current Complaints/Gains: Pt states his c/o pain increased yesterday with therapy and that ice helped. States he continues to perform elbow flexion/ extension throughout the day and places ice on several times at night. States his swelling is down. Pain Assessment - Pain Description Pain Location: Right Elbow Pain Description: aches, sharp with elbow flexion Modalities - Treatment Modality: Ultrasound Parameters/Method Applied: 1.5wcm/2 x 12+ mins Patient Position: Sitting - Hot Pack/Cryotherapy Treatment: Cryotherapy (following tx x 10 mins) Interventions - Exercise/Activities Exercise/Activities/Manual Therapy: Pt positioned in elevated dorsal extension for MT and gentle stretching of elbow flexion/extension with hand pro/ supination and wrist flexion/extension. Total tx time of 35+ mins of manual therapy including gentle prolonged stretching and retrograde massage. Manual therapy/trigger point therapy to scapula/trapezius. Pt ed on continued HEP and importance of applying CP following TE. HOME EXERCISE PROGRAM: Progressive stretching of the RUE Elbow. Weight bearing to the RUE hand to increase elbow extension and Ice to elbow. - Objective Findings Objective Findings:: Pt has increased pronation and 85-90% supination of RUE. - Charges Timed Code Treatment Minutes: 35 Total Treatment Time: 45 Procedures billed for this date of service:: MT CP US Assessment Patient Education: Education of diagnosis, Body/Joint mechanics, Home Exercise Program, Home Safety, Activity Modification, Education of Plan of Care Patient demonstrates compliance with HEP?: Yes Short Term Goals Goal #1: Pt to increase his RUE elbow ext. to -10 deg. Goal to be met by: 10/19/18 Progress towards goal: Progressing Goal #2: Pt to increase his RUE plastic molding operator to 60 Goal to be met by: 10/19/18 Progress towards goal: Progressing Goal #3: Pt to increase RUE wrist ext. to 60 deg. to increase wt. brg on RUE arm. Goal to be met by: 10/19/18 Progress towards goal: Progressing Goal #4: Pt to increase RUE elbow flexion to 100 deg to increase combing his hair. Goal to be met by: 10/19/18 Progress towards goal: Progressing Prison Goals Goal #1: Pt to increase his RUE elbow ext. to -5 deg. Goal to be met by: 11/28/18 Progress towards goal: Progressing Goal #2: Pt to increase his RUE plastic molding operator to 85# Goal to be met by: 11/28/18 Progress towards goal: Progressing Goal #3: Pt to increase RUE wrist ext. to 65 deg. to increase wt. brg on RUE arm. Goal to be met by: 11/28/18 Progress towards goal: Progressing Goal #4: Pt to increase RUE elbow flexion to 145 deg to increase combing his hair. Goal to be met by: 11/28/18 Progress towards goal: Progressing Plan Dates of Prison Goals: 11/28/18 Expiration date of current Insurance Approval:: 11/28/18 PLAN: Continue per POC to max UE ARoM/strength
--- NOTE | 2018-10-08 09:17 | RS.OTDNOTE ---
Subjective Date of Note: 10/05/18 Visit #: 3 Number of visits approved by Insurance: 12 Date of Evaluation: 06/13/18 Payer Source: Medicaid Treatment Diagnosis: Right elbow fracture *Precautions: NA Current Complaints/Gains: Pt states some c/o soreness following tx yesterday. States he continues with HEP of stretching and use of CP. States he feels he is making progress and demo reaching into flexion/extension positions. Pain Assessment - Pain Description Pain Description: Tightness, Sharp, Dull, Aching Pain Location: Right Elbow Pain Description: aches, sharp with elbow flexion Current Pain Intensity: 3 Worst Pain Intensity: 8 Modalities - Treatment Modality: Ultrasound Parameters/Method Applied: 1.5w/cm2 x15 mins Interventions - Exercise/Activities Exercise/Activities/Manual Therapy: Pt positioned in elevated dorsal extension for MT and gentle stretching of elbow flexion/extension with hand pro/ supination and wrist flexion/extension. Total tx time of 45+ mins of manual therapy including gentle prolonged stretching and retrograde massage. Manual therapy/trigger point therapy to scapula/trapezius. Pt ed on continued HEP and importance of applying CP following TE. IASTM-Graston tool utilized for scar tissue/MFR HOME EXERCISE PROGRAM: Progressive stretching of the RUE Elbow. Weight bearing to the RUE hand to increase elbow extension and Ice to elbow. - Objective Findings Objective Findings:: Pt has increased pronation and 85-90% supination of RUE. - Charges Timed Code Treatment Minutes: 51 Total Treatment Time: 62 Procedures billed for this date of service:: CP US MT2 Assessment Patient Education: Education of diagnosis, Body/Joint mechanics, Home Exercise Program, Home Safety, Activity Modification, Education of Plan of Care Patient demonstrates compliance with HEP?: Yes Short Term Goals Goal #1: Pt to increase his RUE elbow ext. to -10 deg. Goal to be met by: 10/19/18 Progress towards goal: Progressing Goal #2: Pt to increase his RUE cut lace machine operator to 60 Goal to be met by: 10/19/18 (40# 42#) Progress towards goal: Progressing Goal #3: Pt to increase RUE wrist ext. to 60 deg. to increase wt. brg on RUE arm. Goal to be met by: 10/19/18 Progress towards goal: Progressing Goal #4: Pt to increase RUE elbow flexion to 100 deg to increase combing his hair. Goal to be met by: 10/19/18 (94*) Progress towards goal: Not Met Extended Insurance Clerk Goals Goal #1: Pt to increase his RUE elbow ext. to -5 deg. Goal to be met by: 11/28/18 Progress towards goal: Progressing Goal #2: Pt to increase his RUE cut lace machine operator to 85# Goal to be met by: 11/28/18 Progress towards goal: Progressing Goal #3: Pt to increase RUE wrist ext. to 65 deg. to increase wt. brg on RUE arm. Goal to be met by: 11/28/18 Progress towards goal: Progressing Goal #4: Pt to increase RUE elbow flexion to 145 deg to increase combing his hair. Goal to be met by: 11/28/18 Progress towards goal: Progressing Plan Dates of Extended Insurance Clerk Goals: 11/28/18 Expiration date of current Insurance Approval:: 11/28/18 PLAN: Continue per POC to increase UE AROM/strength
--- NOTE | 2018-10-08 09:23 | RS.OTDNOTE ---
Subjective Date of Note: 10/08/18 Visit #: 4 Number of visits approved by Insurance: 12 Date of Evaluation: 06/13/18 Payer Source: Medicaid Treatment Diagnosis: Right elbow fracture *Precautions: NA Current Complaints/Gains: Pt states he felt his arm was looser and that he was able to touch further on his shoulder this wknd. States he feels the graston tool will help with his tightness. States good compliance of HEP and applying CP. Pain Assessment - Pain Description Pain Description: Tightness, Sharp, Dull, Aching Pain Location: Right Elbow Pain Description: aches, sharp with elbow flexion Current Pain Intensity: 2 Worst Pain Intensity: 8 Modalities - Treatment Modality: Ultrasound Parameters/Method Applied: 1.5w/cm2 x 10 mins to anterior/posterior elbow and x 7 mins to axillary keloids Patient Position: Sitting - Hot Pack/Cryotherapy Treatment: Cryotherapy (x 10 mins following tx) Interventions - Exercise/Activities Exercise/Activities/Manual Therapy: Pt positioned in elevated dorsal extension for MT and gentle stretching of elbow flexion/extension with hand pro/ supination and wrist flexion/extension. Total tx time of 50+ mins of manual therapy including gentle prolonged stretching and retrograde massage. Manual therapy/trigger point therapy to scapula/trapezius. Pt ed on continued HEP and importance of applying CP following TE. IASTM-Graston tool utilized for scar tissue/MFR HOME EXERCISE PROGRAM: Progressive stretching of the RUE Elbow. Weight bearing to the RUE hand to increase elbow extension and Ice to elbow. - Objective Findings Objective Findings:: Pt has increased pronation and 85-90% supination of RUE. - Charges Timed Code Treatment Minutes: 50 Total Treatment Time: 61 Procedures billed for this date of service:: CP US MT2 Assessment Patient Education: Education of diagnosis, Body/Joint mechanics, Home Exercise Program, Home Safety, Activity Modification, Education of Plan of Care Patient demonstrates compliance with HEP?: Yes Short Term Goals Goal #1: Pt to increase his RUE elbow ext. to -10 deg. Goal to be met by: 10/19/18 Progress towards goal: Progressing Goal #2: Pt to increase his RUE healthcare representative to 60 Goal to be met by: 10/19/18 Progress towards goal: Progressing Goal #3: Pt to increase RUE wrist ext. to 60 deg. to increase wt. brg on RUE arm. Goal to be met by: 10/19/18 Progress towards goal: Partially Met Goal #4: Pt to increase RUE elbow flexion to 100 deg to increase combing his hair. Goal to be met by: 10/19/18 Progress towards goal: Partially Met Skilled Nursing Goals Goal #1: Pt to increase his RUE elbow ext. to -5 deg. Goal to be met by: 11/28/18 Progress towards goal: Progressing Goal #2: Pt to increase his RUE healthcare representative to 85# Goal to be met by: 11/28/18 Progress towards goal: Progressing Goal #3: Pt to increase RUE wrist ext. to 65 deg. to increase wt. brg on RUE arm. Goal to be met by: 11/28/18 Progress towards goal: Progressing Goal #4: Pt to increase RUE elbow flexion to 145 deg to increase combing his hair. Goal to be met by: 11/28/18 Progress towards goal: Progressing Plan Dates of Skilled Nursing Goals: 11/28/18 Expiration date of current Insurance Approval:: 11/28/18 PLAN: Continue per POC to max UE AROM with decreased c/o pain.
--- NOTE | 2018-10-10 15:07 | RS.OTCXNS ---
OT Case Note Date of Scheduled Appointment: 10/10/18 Type: Cancel
--- NOTE | 2018-10-11 16:09 | RS.OTDNOTE ---
Subjective Date of Note: 10/11/18 Visit #: 5 Number of visits approved by Insurance: 12 Date of Evaluation: 06/13/18 Payer Source: Medicaid Treatment Diagnosis: Right elbow fracture *Precautions: NA Current Complaints/Gains: Pt states "feels looser and feels straighter" about UE. States he has been at the pool haul today and has min amount of swelling noted. Pain Assessment - Pain Description Pain Description: Tightness, Sharp, Dull, Aching Pain Location: Right Elbow Pain Description: aches, sharp with elbow flexion Modalities - Treatment Parameters/Method Applied: .05-1.5wcm2 x 15 mins Patient Position: Sitting - Hot Pack/Cryotherapy Treatment: Hot Pack, Cryotherapy Interventions - Exercise/Activities Exercise/Activities/Manual Therapy: Pt positioned in elevated dorsal extension for MT and gentle static stretching of elbow with 5# hand weight. Flexion/ extension with hand pro/supination and wrist flexion/extension performed. Total tx time of 50+ mins of manual therapy including gentle prolonged stretching, hold/relax and retrograde massage. Manual therapy/trigger point therapy to scapula/trapezius. Pt ed on continued HEP and importance of applying CP following TE. IASTM-Graston tool utilized for scar tissue/MFR HOME EXERCISE PROGRAM: Progressive stretching of the RUE Elbow. Weight bearing to the RUE hand to increase elbow extension and Ice to elbow. - Objective Findings Objective Findings:: Pt has increased pronation and 85-90% supination of RUE. - Charges Timed Code Treatment Minutes: 52 Total Treatment Time: 61 Procedures billed for this date of service:: CP US MT2 Assessment Patient Education: Education of diagnosis, Body/Joint mechanics, Home Exercise Program, Home Safety, Activity Modification, Education of Plan of Care Patient demonstrates compliance with HEP?: Yes Short Term Goals Goal #1: Pt to increase his RUE elbow ext. to -10 deg. Goal to be met by: 10/19/18 (following tx) Progress towards goal: Partially Met Goal #2: Pt to increase his RUE private tutor to 60 Goal to be met by: 10/19/18 Progress towards goal: Progressing Goal #3: Pt to increase RUE wrist ext. to 60 deg. to increase wt. brg on RUE arm. Goal to be met by: 10/19/18 Progress towards goal: Met Goal #4: Pt to increase RUE elbow flexion to 100 deg to increase combing his hair. Goal to be met by: 10/19/18 (following tx) Progress towards goal: Partially Met Hand Trucker Goals Goal #1: Pt to increase his RUE elbow ext. to -5 deg. Goal to be met by: 11/28/18 Progress towards goal: Progressing Goal #2: Pt to increase his RUE private tutor to 85# Goal to be met by: 11/28/18 Progress towards goal: Progressing Goal #3: Pt to increase RUE wrist ext. to 65 deg. to increase wt. brg on RUE arm. Goal to be met by: 11/28/18 Progress towards goal: Progressing Goal #4: Pt to increase RUE elbow flexion to 145 deg to increase combing his hair. Goal to be met by: 11/28/18 Progress towards goal: Progressing Plan Dates of Hand Trucker Goals: 11/28/18 Expiration date of current Insurance Approval:: 11/28/18 PLAN: Continue per POC to max UE AROM/strength
--- NOTE | 2018-10-12 10:29 | RS.OTDNOTE ---
Subjective Date of Note: 10/12/18 Visit #: 6 Number of visits approved by Insurance: 12 Date of Evaluation: 06/13/18 Payer Source: Medicaid Treatment Diagnosis: Right elbow fracture *Precautions: NA Current Complaints/Gains: Pt states he is pleased with his improvement of AROM. States to spouse he has 15* more motion. States he continues to perform stretching both directions daily. Continues demo facial grimacing with prolonged stretching of elbow flexion/extension. Pain Assessment - Pain Description Pain Description: Tightness, Sharp, Dull, Aching Pain Location: Right Elbow Pain Description: aches, sharp with elbow flexion Current Pain Intensity: 0-2 Worst Pain Intensity: 8-9 Modalities - Treatment Modality: Ultrasound Parameters/Method Applied: .05w/cm2 x 12 mins to elbow Patient Position: Sitting - Hot Pack/Cryotherapy Treatment: Cryotherapy Comments:: following tx Interventions - Exercise/Activities Exercise/Activities/Manual Therapy: Pt positioned in elevated dorsal extension for MT and gentle static stretching of elbow with 5# hand weight. Flexion/ extension with hand pro/supination and wrist flexion/extension performed. Total tx time of 50+ mins of manual therapy including gentle prolonged stretching, hold/relax and retrograde massage. Manual therapy/trigger point therapy to scapula/trapezius. Pt ed on continued HEP and importance of applying CP following TE. IASTM-Graston tool utilized for scar tissue/MFR HOME EXERCISE PROGRAM: Progressive stretching of the RUE Elbow. Weight bearing to the RUE hand to increase elbow extension and Ice to elbow. - Objective Findings Objective Findings:: Pronation/supination WFL but pt requires manual A/ed to not rotate shoulder during wrist and elbow static stretching. - Charges Timed Code Treatment Minutes: 51 Total Treatment Time: 62 Procedures billed for this date of service:: CP MT2 Assessment Patient Education: Education of diagnosis, Body/Joint mechanics, Home Exercise Program, Home Safety, Activity Modification, Education of Plan of Care Patient demonstrates compliance with HEP?: Yes Short Term Goals Goal #1: Pt to increase his RUE elbow ext. to -10 deg. Goal to be met by: 10/19/18 (following tx) Progress towards goal: Met Goal #2: Pt to increase his RUE welder to 60 Goal to be met by: 10/19/18 Progress towards goal: Progressing Goal #3: Pt to increase RUE wrist ext. to 60 deg. to increase wt. brg on RUE arm. Goal to be met by: 10/19/18 Progress towards goal: Met Goal #4: Pt to increase RUE elbow flexion to 100 deg to increase combing his hair. Goal to be met by: 10/19/18 (following tx) Progress towards goal: Met Nursing Home Goals Goal #1: Pt to increase his RUE elbow ext. to -5 deg. Goal to be met by: 11/28/18 Progress towards goal: Progressing Goal #2: Pt to increase his RUE welder to 85# Goal to be met by: 11/28/18 Progress towards goal: Progressing Goal #3: Pt to increase RUE wrist ext. to 65 deg. to increase wt. brg on RUE arm. Goal to be met by: 11/28/18 Progress towards goal: Progressing Goal #4: Pt to increase RUE elbow flexion to 145 deg to increase combing his hair. Goal to be met by: 11/28/18 Progress towards goal: Progressing Plan Dates of Ethnic Studies Professor Goals: 11/28/18 Expiration date of current Insurance Approval:: 11/28/18 PLAN: Continue per POC to max UE AROM/strength with decreased c/o pain.
--- NOTE | 2018-10-17 14:54 | RS.OTCXNS ---
OT Case Note Date of Scheduled Appointment: 10/17/18 Type: Cancel Reason for Cancel/NS: Pt cancelled because he was called into work.
--- NOTE | 2018-10-22 09:39 | RS.OTDNOTE ---
Subjective Date of Note: 10/19/18 Visit #: 8 Number of visits approved by Insurance: as long as skilled treatment is required. Date of Evaluation: 06/13/18 Payer Source: Medicaid Treatment Diagnosis: Right elbow fracture *Precautions: NA Current Complaints/Gains: Pain with flexion of Right elbow. Pt has limited flexion of elbow along with pain. Pain Assessment - Pain Description Pain Description: Tightness, Sharp, Dull, Aching Pain Location: Right Elbow Pain Description: aches, sharp with elbow flexion Current Pain Intensity: 0 Worst Pain Intensity: 10 Other comments regarding pain:: At rest, patient reported no pain. When pushed into elbow flexion, patient reports pain at 10/10. Modalities - Treatment Modality: Ultrasound Parameters/Method Applied: .4 w/cm2 for 10 minutes to the tricep area of right elbow. Treatment Area: Right elbow tricep, medial elbow. Patient Position: Sitting - Hot Pack/Cryotherapy Treatment: Hot Pack Interventions - Exercise/Activities Exercise/Activities/Manual Therapy: Flexion/extension with hand pro/supination and wrist flexion/extension performed. Total tx time of 50+ mins of manual therapy including gentle prolonged stretching, hold/relax and retrograde massage. Contract/relax to facilitate increased flexion of RUE elbow. Manual therapy/trigger point to the tricep of RUE elbow area. Pt ed on continued HEP and importance of applying CP following TE. IASTM-Graston tool utilized for scar tissue/MFR. Pushing of right wrist to increase right elbow flexion. HOME EXERCISE PROGRAM: Progressive stretching of the RUE Elbow. Weight bearing to the RUE hand to increase elbow extension and Ice to elbow. - Objective Findings Objective Findings:: Pronation/supination WFL but pt requires manual A/ed to not rotate shoulder during wrist and elbow static stretching. - Charges Timed Code Treatment Minutes: 58 Total Treatment Time: 58 Procedures billed for this date of service:: HP, US, MT x 2, EX Assessment Assessment: Pt is making progress with his RUE elbow flexion and extension. Pt responds positively to the Gastron tool used to decrease scar tissue to the tricep. Pt is improving in his extension of the left elbow. Pt continues with pain. Pt is improving in flexibility and AROM of right elbow. Patient Education: Education of diagnosis, Body/Joint mechanics, Home Exercise Program, Home Safety, Education of Plan of Care Problems/Comments: continue to progress patient with elbow extension and elbow flexion. Patient demonstrates compliance with HEP?: Yes Short Term Goals Goal #1: Pt to increase his RUE elbow ext. to -10 deg. Goal to be met by: 10/19/18 (following tx) Progress towards goal: Met Goal #2: Pt to increase his RUE mill controller to 60 Goal to be met by: 10/19/18 Progress towards goal: Progressing Goal #3: Pt to increase RUE wrist ext. to 60 deg. to increase wt. brg on RUE arm. Goal to be met by: 10/19/18 Progress towards goal: Met Goal #4: Pt to increase RUE elbow flexion to 100 deg to increase combing his hair. Goal to be met by: 10/19/18 (following tx) Progress towards goal: Met Manager Medicare Marketing Goals Goal #1: Pt to increase his RUE elbow ext. to -5 deg. Goal to be met by: 11/28/18 Progress towards goal: Progressing Goal #2: Pt to increase his RUE mill controller to 85# Goal to be met by: 11/28/18 Progress towards goal: Progressing Goal #3: Pt to increase RUE wrist ext. to 65 deg. to increase wt. brg on RUE arm. Goal to be met by: 11/28/18 Progress towards goal: Progressing Goal #4: Pt to increase RUE elbow flexion to 145 deg to increase combing his hair. Goal to be met by: 11/28/18 Progress towards goal: Progressing Plan Dates of Manager Medicare Marketing Goals: 11/28/18 Expiration date of current Insurance Approval:: 11/28/18 PLAN: OT to provide skilled interventions in order to increase AROM of RUE elbow flexion/extension to increase occupational performance.
--- NOTE | 2018-10-23 10:47 | RS.OTCXNS ---
OT Case Note Date of Scheduled Appointment: 10/23/18 Type: Cancel (Called into work)
--- NOTE | 2018-10-25 13:58 | RS.OTDNOTE ---
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 States he has 0-min difficulty with all job functions 2* UE AROM. Continues stating pain with elbow flexion but that he is pleased with his elbow extension. Pain Assessment - Pain Description Pain Description: Tightness, Sharp, Dull, Aching Pain Location: Right Elbow Pain Description: aches, sharp with elbow flexion Current Pain Intensity: 1-2 Worst Pain Intensity: 8 Modalities - Treatment Modality: Ultrasound Parameters/Method Applied: .05-1.0w/cm2 to elbow/tricep area Patient Position: Sitting - Hot Pack/Cryotherapy Treatment: Hot Pack, Cryotherapy Interventions - Exercise/Activities Exercise/Activities/Manual Therapy: Flexion/extension with hand pro/supination and wrist flexion/extension performed. Total tx time of 50+ mins of manual therapy including gentle prolonged stretching, hold/relax and retrograde massage. Contract/relax to facilitate increased flexion of RUE elbow. Manual therapy/trigger point to the tricep of RUE elbow area. Pt ed on continued HEP and importance of applying CP following TE. Tricep press performed 10/ behind head along with pt holding in extended flexed position with gravity assising increased ROM. IASTM-Graston tool utilized for scar tissue/MFR. Pushing of right wrist to increase right elbow flexion. HOME EXERCISE PROGRAM: Progressive stretching of the RUE Elbow. Weight bearing to the RUE hand to increase elbow extension and Ice to elbow. - Objective Findings Objective Findings:: Pronation/supination WFL but pt requires manual A/ed to not rotate shoulder during wrist and elbow static stretching. - Charges Timed Code Treatment Minutes: 58 Total Treatment Time: 70 Procedures billed for this date of service:: CP MT2 US EX Assessment Patient Education: Education of diagnosis, Body/Joint mechanics, Home Exercise Program, Home Safety, Activity Modification, Education of Plan of Care Patient demonstrates compliance with HEP?: Yes Short Term Goals Goal #1: Pt to increase his RUE elbow ext. to -10 deg. 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 to 60 deg. to increase wt. brg on RUE arm. Goal to be met by: 10/19/18 Progress towards goal: Met Goal #4: Pt to increase RUE elbow flexion to 100 deg to increase combing his hair. Goal to be met by: 10/19/18 (following tx) Progress towards goal: Met International Trade Manager Goals Goal #1: Pt to increase his RUE elbow ext. to -5 deg. Goal to be met by: 11/28/18 Progress towards goal: Progressing Goal #2: Pt to increase his RUE internet site designer to 85# Goal to be met by: 11/28/18 Progress towards goal: Progressing Goal #3: Pt to increase RUE wrist ext. to 65 deg. to increase wt. brg on RUE arm. Goal to be met by: 11/28/18 Progress towards goal: Progressing Goal #4: Pt to increase RUE elbow flexion to 145 deg to increase combing his hair. Goal to be met by: 11/28/18 Progress towards goal: Progressing Plan Dates of International Trade Manager Goals: 11/28/18 Expiration date of current Insurance Approval:: 11/28/18 PLAN: Continue per POC to max UE AROM
--- NOTE | 2018-10-26 09:22 | RS.OTDNOTE ---
Subjective Date of Note: 10/15/18 Visit #: 7 Number of visits approved by Insurance: 12 Date of Evaluation: 06/13/18 Payer Source: Medicaid Treatment Diagnosis: Right elbow fracture *Precautions: NA Current Complaints/Gains: Pt has increased in AROM of the RUE elbow. Pt's functional occupational performance. Pain Assessment - Pain Description Pain Description: Tightness, Sharp, Dull, Aching Pain Location: Right Elbow Pain Description: aches, sharp with elbow flexion Current Pain Intensity: 0 Worst Pain Intensity: 7 Modalities - Treatment Modality: Ultrasound Parameters/Method Applied: .4 w/cm2 for 10 minutes to RUE tricep and medial elbow to decrease scar tissue and pain. Treatment Area: Right elbow, tricep Patient Position: Sitting - Hot Pack/Cryotherapy Treatment: Hot Pack Interventions - Exercise/Activities Exercise/Activities/Manual Therapy: Pt positioned in elevated dorsal extension for MT and gentle static stretching of elbow with 5# hand weight. Flexion/ extension with hand pro/supination and wrist flexion/extension performed. Total tx time of 50+ mins of manual therapy including gentle prolonged stretching, hold/relax and retrograde massage. Manual therapy/trigger point therapy to scapula/trapezius. Pt ed on continued HEP and importance of applying CP following TE. IASTM-Graston tool utilized for scar tissue/MFR HOME EXERCISE PROGRAM: Progressive stretching of the RUE Elbow. Weight bearing to the RUE hand to increase elbow extension and Ice to elbow. - Objective Findings Objective Findings:: Pronation/supination WFL but pt requires manual A/ed to not rotate shoulder during wrist and elbow static stretching. - Charges Timed Code Treatment Minutes: 60 Total Treatment Time: 68 Procedures billed for this date of service:: HP, US, MT x 2, EX Assessment Assessment: Pt's RUE elbow extension is improving. 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 Patient Education: Education of diagnosis, Home Exercise Program, Education of Plan of Care Problems/Comments: Pt has increased pain with elbow flexion more than 95 degrees of the RUE. Patient demonstrates compliance with HEP?: Yes Short Term Goals Goal #1: Pt to increase his RUE elbow ext. to -10 deg. Goal to be met by: 10/19/18 (following tx) Progress towards goal: Met Goal #2: Pt to increase his RUE entry level drafter to 60 Goal to be met by: 10/19/18 Progress towards goal: Progressing Goal #3: Pt to increase RUE wrist ext. to 60 deg. to increase wt. brg on RUE arm. Goal to be met by: 10/19/18 Progress towards goal: Met Goal #4: Pt to increase RUE elbow flexion to 100 deg to increase combing his hair. Goal to be met by: 10/19/18 (following tx) Progress towards goal: Met Detention Goals Goal #1: Pt to increase his RUE elbow ext. to -5 deg. Goal to be met by: 11/28/18 Progress towards goal: Progressing Goal #2: Pt to increase his RUE entry level drafter to 85# Goal to be met by: 11/28/18 Progress towards goal: Progressing Goal #3: Pt to increase RUE wrist ext. to 65 deg. to increase wt. brg on RUE arm. Goal to be met by: 11/28/18 Progress towards goal: Progressing Goal #4: Pt to increase RUE elbow flexion to 145 deg to increase combing his hair. Goal to be met by: 11/28/18 Progress towards goal: Progressing Plan Dates of Program Development Specialist Goals: 11/28/18 Expiration date of current Insurance Approval:: 11/28/18 PLAN: OT to continue to progress patient in AROM of the RUE elbow and increase strength.
--- NOTE | 2018-10-30 13:41 | RS.OTDNOTE ---
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 States he carries 5 gallan buckets in B arms and he feels that continues to help with his "arm stretching" Pain Assessment - Pain Description Pain Description: Tightness, Sharp, Dull, Aching Pain Location: Right Elbow Pain Description: aches, sharp with elbow flexion Current Pain Intensity: 0 Worst Pain Intensity: 8 Modalities - Treatment Modality: Ultrasound Parameters/Method Applied: 1.5w/cm2 x 10 mins to anterior/posterior elbow Patient Position: Sitting - Hot Pack/Cryotherapy Treatment: Cryotherapy Interventions - Exercise/Activities Exercise/Activities/Manual Therapy: Pt positioned in elevated dorsal extension for MT and gentle static stretching of elbow with 5# hand weight. Flexion/ extension with hand pro/supination and wrist flexion/extension performed. Overhead static holding in elbow flexion during MT/graston tech. Total tx time of 50+ mins of manual therapy including gentle prolonged stretching, hold/relax and retrograde massage. Pt able to tolerate progressive stetching A/AROM with weight gym and while positioned x 4+ mins in progressive elbow flexion position with max holding performed. Pt ed on continued HEP and importance of applying CP following TE. IASTM-Graston tool utilized for scar tissue/MFR with pt voicing good outcomes for several days following and stating he feels all his scar tissue is gone or loosened up. HOME EXERCISE PROGRAM: Progressive stretching of the RUE Elbow. Weight bearing to the RUE hand to increase elbow extension and Ice to elbow. Media utilized for elbow flexion activity while increasing time tolerance. - Objective Findings Objective Findings:: Pronation/supination WFL but pt requires manual A/ed to not rotate shoulder during wrist and elbow static stretching. - Charges Timed Code Treatment Minutes: 52 Total Treatment Time: 61 Procedures billed for this date of service:: CP US MT2 Assessment Patient Education: Education of diagnosis, Body/Joint mechanics, Home Exercise Program, Home Safety, Activity Modification, Education of Plan of Care Patient demonstrates compliance with HEP?: Yes Short Term Goals Goal #1: Pt to increase his RUE elbow ext. to -10 deg. Goal to be met by: 10/19/18 (following tx) Progress towards goal: Met Goal #2: Pt to increase his RUE metal furnace operator to 60 Goal to be met by: 10/19/18 Progress towards goal: Progressing Goal #3: Pt to increase RUE wrist ext. to 60 deg. to increase wt. brg on RUE arm. Goal to be met by: 10/19/18 Progress towards goal: Met Goal #4: Pt to increase RUE elbow flexion to 100 deg to increase combing his hair. Goal to be met by: 10/19/18 (following tx) Progress towards goal: Met Slip Caster Goals Goal #1: Pt to increase his RUE elbow ext. to -5 deg. Goal to be met by: 11/28/18 (following tx) Progress towards goal: Partially Met Goal #2: Pt to increase his RUE metal furnace operator to 85# Goal to be met by: 11/28/18 Progress towards goal: Progressing Goal #3: Pt to increase RUE wrist ext. to 65 deg. to increase wt. brg on RUE arm. Goal to be met by: 11/28/18 Progress towards goal: Progressing Goal #4: Pt to increase RUE elbow flexion to 145 deg to increase combing his hair. Goal to be met by: 11/28/18 Progress towards goal: Progressing Plan Dates of Slip Caster Goals: 11/28/18 Expiration date of current Insurance Approval:: 11/28/18 PLAN: Continue per POC to [facility] [employer] UE function for all work and leisure activities.
== END 2018-11-03 23:59 ==
PROVIDERS: ATTEND Orthopaedic Surgery Sports Medicine
DX: M25.621 Stiffness of right elbow, not elsewhere classified (principal)